=== PATIENT | female | born 1995 | race Caucasian/White ===

== ENCOUNTER 2018-03-24 10:56 | Emergency (ER) | payer OTHER, MEDICAID, SELFPAY ==
[2018-03-24 10:57] VITALS: BP 138/84; PULSE 131; RESP 16; TEMP 37.1; O2SAT 97; BMI 17.4
--- NOTE | 2018-03-24 11:30 | NURSING ---
CALLED CRISIS FOR DR VALENTE.
--- NOTE | 2018-03-24 12:31 | ED.VISSUMM ---
- ER Visit Summary Date of Service: 03/24/18 Chief Complaint: Depression, anxiety History of Present Illness: The patient is a 22 F presenting requesting a referral for help for her depression and anxiety. She states this has been ongoing for several months. She states it has been exacerbated recently by her methamphetamine use. She states she was in [facility] and was clean for 7 days. When she was released, she relapsed. She has had increased stress due to losing her house and she is in process of moving. She denies suicidal or homicidal ideation. No previous history of suicide attempt. She previously took Prozac and stopped this 2 years ago. Physical Examination: Vitals are stable. Patient is afebrile. Alert no acute distress. HEENT exam is unremarkable. Neck is supple. Lungs are clear and equal bilaterally. Heart is regular rate and rhythm. Abdomen is soft nontender nondistended. Extremities are unremarkable. Skin is warm and dry. No focal neurologic deficit. Depressed affect, no suicidal ideation. Remainder of exam is unremarkable. Emergency Department Course and Treatment: Patient repeatedly states that she is not suicidal and has no suicide plan. She is requesting outpatient referral for counseling. I paged the counseling center to attempt to get her an appointment. While awaiting callback, the patient eloped from the emergency department. The counseling center will attempt to reach the patient for follow up. Disposition: Elopement Impression: Depression/anxiety This note was generated with [employer] dictation software. It may contain incorrect words, spelling, and punctuation that were not noted in review of the chart prior to signing ED Disposition - Plan for ED Patient: Disposition: Home or Assisted Living Chief Complaint: Depression Referrals: Care Physician,No Primary [Primary Care Provider] -
[2018-03-24 13:19] VITALS: PULSE 64; RESP 14
--- NOTE | 2018-03-24 13:25 | ED.RN ---
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 WENT IN TO PT'S ROOM TO INFORM HER THAT THE BUCKLE WIRE INSERTER WAS HERE BUT PT WAS NOT LONGER IN THE ROOM.
== END 2018-03-24 13:26 | disposition home or self-care (01) ==
PROVIDERS: Emergency Provider Emergency Medicine
DX: F32.9 Major depressive disorder, single episode, unspecified (principal); F41.9 Anxiety disorder, unspecified; F15.90 Other stimulant use, unspecified, uncomplicated; Z72.0 Tobacco use; Z53.21 Procedure and treatment not carried out due to patient leaving prior to being seen by health care provider
CPT/HCPCS: 99282

== ENCOUNTER 2018-04-16 01:48 | Emergency (ER) | payer OTHER, MEDICAID, SELFPAY ==
[2018-04-16 01:48] VITALS: BP 126/83; PULSE 110; RESP 18; TEMP 36.5; O2SAT 99; BMI 18.2
--- NOTE | 2018-04-16 02:20 | RAD_ITS ---
STUDY: X-RAY CHEST REASON FOR EXAM: Female, 22 years old. Cough TECHNIQUE: Two-view COMPARISON: November 17, 2014 FINDINGS: The lungs are clear and expanded. There is no demonstrated pleural abnormality. Normal size heart. Normal mediastinum and ellie. Normal visualized pulmonary arteries. Normal visualized aortic arch and descending thoracic aorta. Normal visualized thoracic spine. Normal visualized ribs, clavicles, and shoulders. There is no demonstrated abnormality of the visualized soft tissue structures of the upper abdomen. RAD/Chest PA and Lateral IMPRESSION: Normal x-ray examination of the chest. No acute findings in the lungs Electronically Signed: Real Milton MD at 2:45 EDT Tel , Service support ,
--- NOTE | 2018-04-16 03:11 | ED.DCSUM_ITS ---
- ER Visit Summary Date of Service: 04/16/18 Chief Complaint: URI-like illness History of Present Illness: The patient is a 22 F who presents with a URI-like illness. She has been sick for 5 days. She complains of congestion rhinorrhea sore itchy throat bitemporal headache shortness of breath cough sputum and headache. She complains of nausea and vomiting which just began today. Over the last 15 hours she has had 3 episodes of nonbloody nonbilious emesis, no fevers. No chest pain. Physical Examination: Heart rate 110 vitals otherwise normal No distress resting comfortably Trosper moist mucous membranes Oropharynx clear Heart regular rhythm slightly tachycardic Lungs are clear without rales rhonchi or wheezes Abdomen soft Alert Test Results: Chest x-ray shows no acute process, normal Emergency Department Course and Treatment: Patient has rhinosinusitis and bronchitis. Given persistent severe symptoms for 5 days I do feel antibiotics are potentially of benefit. She was given a prescription for Augmentin. She was advised to follow-up with her primary care physician. She was discharged. Treatment Plan: [] Disposition: Discharge Impression: Rhinosinusitis Bronchitis This note was generated with [employer] dictation software. It may contain incorrect words, spelling, and punctuation that were not noted in review of the chart prior to signing ED Disposition - Plan for ED Patient: Chief Complaint: General Illness Referrals: Care Physician,No Primary [Primary Care Provider] -
--- NOTE | 2018-04-16 03:11 | ED.DEP ---
ED Disposition - Plan for ED Patient: Chief Complaint: General Illness Instructions: Acute Bronchitis Prescriptions: Amox/Clavulanate Tablet [Augmentin Tablet] 875 mg PO Q12H #20 tab Referrals: Care Physician,No Primary [Primary Care Provider] -
[2018-04-16 03:23] VITALS: BP 121/60; PULSE 80; RESP 16; O2SAT 96
== END 2018-04-16 03:24 | disposition home or self-care (01) ==
PROVIDERS: Emergency Provider Emergency Medicine
DX: J40 Bronchitis, not specified as acute or chronic (principal); J32.9 Chronic sinusitis, unspecified; R11.2 Nausea with vomiting, unspecified
CPT/HCPCS: 71046; 99282

== ENCOUNTER 2018-07-13 14:41 | Emergency (ER) | payer OTHER, MEDICAID, SELFPAY ==
[2018-07-13 14:42] VITALS: BP 122/81; PULSE 109; RESP 14; TEMP 36.6; O2SAT 99; BMI 18.0
--- NOTE | 2018-07-13 15:09 | ED.VISSUMM ---
- ER Visit Summary Date of Service: 07/13/18 Chief Complaint: Accidental heroin overdose History of Present Illness: The patient is a 23 F history of methamphetamine and more recently of the last month heroin abuse. Patient states this is the first time she is overdosed. She used IV heroin today. Awoke with the squad at the home where she was at and had received intranasal Narcan. She denies any complaints. Physical Examination: Well-appearing young female. No acute distress. Vital signs are stable. She is afebrile. She does not seem septic or toxic. H EENT exam pupils round reactive light. Extra motions are intact. No signs of trauma to her face or scalp. Moist mucous membranes. Neck nontender. No lymphadenopathy. Lungs clear to auscultation bilaterally. Heart regular rhythm no murmur. Abdomen soft nontender. Patient moving all 4 extremities. Neurovascular intact. Nontender. No edema. No rashes. No cellulitis. Back nontender. Neurologically she is awake and alert with no focal motor deficits. Test Results: None Emergency Department Course and Treatment: Patient is resting comfortably in bed. She will be observed for an hour. She is currently drinking water. Treatment Plan: [] Disposition: Discharge Impression: Acute heroin overdose History of methamphetamine and heroin abuse This note was generated with [employer] dictation software. It may contain incorrect words, spelling, and punctuation that were not noted in review of the chart prior to signing ED Disposition - Plan for ED Patient: Chief Complaint: Overdose Referrals: Care Physician,No Primary [Primary Care Provider] -
--- NOTE | 2018-07-13 15:11 | ED.DEP ---
ED Disposition - Plan for ED Patient: Disposition: Home or Assisted Living Chief Complaint: Overdose Instructions: ED Overdose Opiate Referrals: EIGHTY,ONE [STAFF PHYSICIAN] - As soon as possible Additional Instructions: Follow-up with a detox facility.
[2018-07-13 15:43] VITALS: BP 111/79; PULSE 111; RESP 16; O2SAT 98
[2018-07-13 16:04] VITALS: BP 107/61; RESP 16; O2SAT 98
== END 2018-07-13 16:17 | disposition home or self-care (01) ==
LOC: ED 15:42
PROVIDERS: Emergency Provider Emergency Medicine
DX: T40.1X1A Poisoning by heroin, accidental (unintentional), initial encounter (principal); Y92.9 Unspecified place or not applicable; F11.10 Opioid abuse, uncomplicated; F15.10 Other stimulant abuse, uncomplicated; Z72.0 Tobacco use
CPT/HCPCS: 99284

== ENCOUNTER 2019-12-12 16:51 | Emergency (ER) | payer OTHER, MEDICAID, SELFPAY ==
[2019-06-02 13:52] VITALS: BMI 18.0
[2019-12-12 16:52] VITALS: BP 134/93; PULSE 91; RESP 16; TEMP 36.5; O2SAT 98; BMI 23.5
--- NOTE | 2019-12-12 16:58 | ED.VIS.GEN ---
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 Status post 4 of intranasal Narcan along with Zofran ODT. Patient awake alert currently denies any symptoms. Reported had one emesis after Narcan. She feels better. Reports typical drug of choice with methamphetamines, she injected yesterday, she was clean for 7 months, however due to being awake wanted to take something to bring her down. She was at her friend's house after shower when she injected fentanyl. Reported friends called EMS, brought her outside, she was somnolent however she was not cyanotic, she was given medications by EMS and brought here for evaluation. Patient denies any homicidal or suicidal ideations. Reports she is currently homeless. She denies any past medical history. Denies fevers. Prior similar symptoms: Yes Past Medical History - Allergies and Home Meds Allergies/Adverse Reactions: Allergies No Known Allergies Allergy (Verified 06/13/17 20:17) Primary Care Physician: Care Physician,No Primary [Primary Care Provider] - Past Medical History: - - IV drug use started May 2018 Smoking Status: Current every day smoker Review of Systems General: Denies: Chills, Fever, Sweats Eyes: Denies: Visual changes - bilaterally, Diplopia ENT: Denies: Rhinorrhea, Sore throat Cardiovascular: Denies: Chest pain, Palpitations Respiratory: Denies: Dyspnea, Cough, Dyspnea on exertion Gastrointestinal: Denies: Abdominal pain, Nausea, Vomiting, Diarrhea, Melena, Hematochezia Genitourinary: Denies: Dysuria, Hematuria, Frequency Musculoskeletal: Denies: Back pain, Extremity Pain Skin: Denies: Rash, Wounds Neurological: Denies: Headache, Weakness, Numbness Physical Exam Vital Signs/Narrative: Vital Signs Temp Pulse Resp BP Pulse Ox 12/12/19 16:52 97.7 F L 91 16 134/93 H 98 Inital Vital Signs reviewed: Yes General: Well nourished, Well developed, No Acute Distress Head: Normocephalic, Atraumatic Eyes: Perrl, EOMI ENT: Moist mucous membranes, No rhinorrhea Neck: Supple, Nontender Cardiovascular: Regular rate, Regular rhythm, No murmurs Respiratory: No distress, CTA bilaterally, Chest nontender Abdomen: Soft, Nontender, Nondistended, Normal bowel sounds Back: Nontender, Normal Inspection Extremities: Nontender, No edema Skin: Normal color, No rash, - - Bilateral antecubital, 2 needle punctures each site, no surrounding erythema or drainage or any tenderness. Neurological: Alert, Oriented x3, Cranial nerves II-XII grossly intact, Normal Strength, Normal Sensation Psychological: Normal affect, Normal Mood Diagnostic/Tx/Re-eval - Medical Decision Making Patient currently awake alert, denies any suicidal homicidal ideations. Will monitor and plan to discharge. 1711: Nursing came to me, apparently patient did not want to be monitored, patient eloped before I can discussed with her or have any AMA papers signed. ED Disposition - Plan for ED Patient: Disposition: Home or Assisted Living Diagnosis: Opioid overdose Instructions: ED Overdose Opiate Referrals: Care Physician,No Primary [Primary Care Provider] -
--- NOTE | 2019-12-12 17:13 | ED.RN ---
RN WALKING IN [place] AFTER PUTTING PATIENT ON MONITOR AND PATIENT STATING SHE IS GOING TO SLEEP. RN FINDS PATIENT IN [place] PUSHING THE ER EXIT DOORS OPEN. NURSE STATES HEY, WE ARE GOING TO WATCH YOU AND JUST MAKE SURE YOU ARE OKAY IF YOU CAN COME BACK TO YOUR ROOM. SHE STATES NAH, I AM FINE AND PUSHED THE ER DOOR OPEN AND PROCEEDED OUT THE EXIT. DR. HERNANDEZ MADE AWARE OF ELOPEMENT.
== END 2019-12-12 17:17 | disposition left against medical advice (07) ==
LOC: ED 17:28
PROVIDERS: Emergency Provider Emergency Medicine
DX: T40.2X1A Poisoning by other opioids, accidental (unintentional), initial encounter (principal); Y92.9 Unspecified place or not applicable; Z59.0 Homelessness; F17.200 Nicotine dependence, unspecified, uncomplicated
CPT/HCPCS: 99284

== ENCOUNTER 2020-02-07 10:15 | Emergency (ER) | payer OTHER, MEDICAID, SELFPAY ==
[2020-02-07 10:15] VITALS: BP 108/60; PULSE 95; RESP 16; TEMP 36.6; O2SAT 98; BMI 22.5
--- NOTE | 2020-02-07 10:25 | CT_ITS ---
STUDY: CT ABDOMEN AND PELVIS WITHOUT CONTRAST REASON FOR EXAM: Female, 24 years old. PT STATED LEFT FLANK PAIN TODAY RADIATION DOSAGE (If Supplied By Facility): CTDIvol = ( 6.28 ) mGy, DLP = ( 308.99 ) mGycm TECHNIQUE: Transaxial images were obtained from the dome of the diaphragm to the symphysis pubis without oral contrast, and without intravenous contrast. Sagittal and coronal images were reconstructed. Individualized dose optimization techniques were used for this CT. COMPARISON: 2015 FINDINGS: The visualized lung bases are unremarkable. The visualized portions of the heart are within normal limits. Normal liver. Normal gallbladder and extrahepatic biliary system. Normal spleen. Normal pancreas. Normal bilateral adrenal glands. Normal right kidney. Left kidney shows mild hydronephrosis and proximal hydroureter but there is no obstructing stone stricture or mass noted. Normal visualized stomach. Normal small intestine. Retained stool noted in the colon The appendix is visualized and appears normal. Appendix best seen on coronal recon images 36 through 39 Normal abdominal aorta. Normal inferior vena cava. Normal retroperitoneum. Normal urinary bladder. Normal visualized uterus. Normal abdominal wall. Normal osseous structures. CT/Abdomen/Pelvis without Cont IMPRESSION: Mild left hydronephrosis and hydroureter without obstructing stone or stricture. Findings could be due to a crossing vessel or nonradiopaque stone. Retained stool throughout the colon No free peritoneal fluid, air, or suspicious adenopathy Electronically Signed: Shaun Roman MD at 12:10 EDT , Service support ,
--- NOTE | 2020-02-07 10:27 | ED.DCSUM_ITS ---
History of Present Illness Chief Complaint: Back Narrative: 24-year-old female presenting with left flank pain. She states she woke up with it. Sharp and radiated cuts across the lower aspect of the left side of her back. She states she does not have a history of kidney stones but her brother does. She is concerned that she might have a kidney stone. She is not had any dysuria or hematuria that she knows of. She is unsure if she could be or not. She has not had a fever. She took ibuprofen and Tylenol prior to coming in this did not help. Past Medical History - Allergies and Home Meds Allergies/Adverse Reactions: Allergies No Known Allergies Allergy (Verified 02/07/20 10:17) Primary Care Physician: Care Physician,No Primary [Primary Care Provider] - Prior records reviewed: Yes Smoking Status: Current every day smoker Review of Systems General: Denies: Chills, Fever Eyes: Denies: Visual changes - bilaterally, Diplopia ENT: Denies: Rhinorrhea, Sore throat Cardiovascular: Denies: Chest pain, Palpitations Respiratory: Reports: Dyspnea Gastrointestinal: Denies: Nausea, Vomiting, Diarrhea Genitourinary: Denies: Dysuria, Hematuria Musculoskeletal: Reports: Back pain Skin: Denies: Rash Neurological: Denies: Headache Psych: Denies: Depression, Anxiety Physical Exam Vital Signs/Narrative: Vital Signs Temp Pulse Resp BP Pulse Ox 02/07/20 10:15 97.8 F 95 16 108/60 98 General: Well nourished, Well developed Head: Normocephalic, Atraumatic Eyes: Perrl, EOMI ENT: Moist mucous membranes Cardiovascular: Regular rate, Regular rhythm Respiratory: No distress, CTA bilaterally Abdomen: Soft Back: CVA tenderness - Left-sided Extremities: Nontender Skin: Normal color, No rash Neurological: Alert, Oriented x3 Psychological: Normal affect Diagnostic/Tx/Re-eval Clinical Impression(s) from Imaging Studies Abdomen/Pelvis CT 02/07/20 10:25 IMPRESSION: Mild left hydronephrosis and hydroureter without obstructing stone or stricture. Findings could be due to a crossing vessel or nonradiopaque stone. Retained stool throughout the colon No free peritoneal fluid, air, or suspicious adenopathy Electronically Signed: Shaun Roman MD at 12:10 EDT , Service support , Laboratory Data 02/07/20 02/07/20 02/07/20 10:40 10:40 11:30 WBC 6.7 RBC 4.54 Hgb 14.4 Hct 42.2 MCV 93.0 MCH 31.7 MCHC 34.1 RDW Std Deviation 44.6 H RDW Coeff of Gus 13.0 Plt Count 205 MPV 11.1 Immature Gran % (Auto) 0.300 Neut % (Auto) 53.7 Lymph % (Auto) 35.3 Dolores % (Auto) 7.4 Eos % (Auto) 2.4 Baso % (Auto) 0.9 Absolute Neuts (auto) 3.6 Absolute Lymphs (auto) 2.37 Nucleated RBC % 0 Sodium 141 Potassium 3.7 Chloride 109 H Carbon Dioxide 29.0 Anion Gap 3 L BUN 9 Creatinine 0.83 Estim Creat Clear Calc 102.51 Est GFR (MDRD) Af Amer 110 Est GFR (MDRD) Non-Af 91 BUN/Creatinine Ratio 10.9 Glucose 89 Calcium 8.6 Urine Color Yellow Urine Clarity Cloudy Urine pH 6.0 Ur Specific [place] 1.025 Urine Protein 15 H Urine Glucose (UA) Normal Urine Ketones 5 H Urine Occult Blood Negative Urine Nitrite Negative Urine Bilirubin 1 H Urine Urobilinogen 4 H Ur Leukocyte Esterase 25 H Urine RBC 0 SEEN Urine WBC 0-5 SEEN Ur Squamous Epith Cells 5-10 SEEN Urine Bacteria 1+ Urine Mucus 1+ Urine Test Negative She presents with left-sided flank pain. She does not have a history of kidney stones. CBC and BMP are unremarkable. UA appears to be contaminated but does not appear to be a UTI. CT abdomen pelvis shows left-sided hydronephrosis and hydroureter consistent with likely passed kidney stone. It is possible that this could be missed on CT. Patient is currently pain-free. Consult on the findings. She will be discharged home in stable condition. Impression: 1. Left flank pain?likely passed kidney stone 2. Hydronephrosis and ureter ED Disposition - Plan for ED Patient: Disposition: Home or Assisted Living Diagnosis: Flank pain, Hydronephrosis, Kidney stone Instructions: ED RENAL STONE Passed Referrals: Care Physician,No Primary [Primary Care Provider] -
[2020-02-07 10:58] LABS: Absolute Lymphocyte Count 2.37 X10^3/uL (0.83-4.51); Absolute Neutrophil Count 3.6 X10^3/uL (2.0-7.7); Basophil# 0.06 X10^3/uL; Basophil% 0.9 % (0-1); Eosinophil# 0.16 X10^3/uL; Eosinophils% 2.4 % (0-5); Hematocrit 42.2 % (37-47); Hemoglobin 14.4 g/dL (12.0-15.0); Lymphocyte # 2.37 X10^3/ul (4.0); Lymphocyte % 35.3 % (19-41); Mean Corp Hgb Conc 34.1 g/dL (32-36); Mean Corpuscular Hgb 31.7 pg (27.0-32.0); Mean Platelet Vol. 11.1 fl (6.2-12.0); Monocyte% 7.4 % (0-10); NRBC Flagged by Analyzer 0 % (0-5); Neutrophil # 3.61 X10^3/uL (2.7-7.7); Neutrophil % 53.7 % (47-70); Platelet Count 205 K/mm3 (150-450); RBC Distribution Width SD 44.6 fl (35.1-43.9); Red Blood Count 4.54 M/mm3 (4.2-5.4); White Blood Count 6.7 K/mm3 (4.4-11.0)
[2020-02-07 11:14] LABS: Anion Gap 3 (5-15); BUN 9 mg/dL (7-18); BUN/Creat Ratio 10.9 RATIO (10-20); Calcium,Total 8.6 mg/dL (8.5-10.1); Chloride 109 mmol/L (98-107); Creatinine, Serum 0.83 mg/dL (0.55-1.02); EST Glomerular Filtration Rate 91 mL/min (>60); Est Glom Filt Rate - Afr Amer 110 mL/min (>60); Estimated Creatinine Clearance 102.51 ml/min; Glucose 89 mg/dL (74-106); Potassium 3.7 mmol/L (3.5-5.1); Sodium Level 141 mmol/L (136-145)
[2020-02-07] MEDS: Morphine 4 MG/ML Syringe IV (11:20)
[2020-02-07] MEDS: Ondansetron 4 MG/2 ML Vial IV (11:20)
[2020-02-07 11:34] LABS: Internal QC Validated? YES +Cl - CLEAR BKGD; Red Blood Cells-Urine 0 SEEN /hpf (0-5)
[2020-02-07 11:35] LABS: Color, Urine Yellow (Yellow); Glucose, Dipstick Normal (Normal); Ketone-Dipstick 5 mg/dl (Negative); Leukocyte Esterase-Dipstick 25 /ul (Negative); Nitrite-Dipstick Negative (Negative); Occult Blood-Urine Negative /ul (Negative); Protein-Dipstick 15 mg/dl (Negative); Specific Gravity, Urine 1.025 (1.002-1.030); Urine Clarity Cloudy (Clear); Urine Urobilinogen 4 mg/dl (Normal)
[2020-02-07 11:37] LABS: Urine Bilirubin Dipstick 1 mg/dL (Negative)
[2020-02-07 11:38] LABS: Pregnancy, Urine Negative Negative
[2020-02-07 11:40] LABS: Bacteria 1+ /hpf (None Seen); Mucous, Urine 1+ /hpf (<or=2+); White Blood Cells 0-5 SEEN /hpf (0-5)
[2020-02-07 11:41] LABS: Squamous Epithelial Cells - UA 5-10 SEEN /hpf (5-10)
[2020-02-07 12:59] VITALS: BP 96/55; PULSE 69; RESP 17; O2SAT 97
== END 2020-02-07 13:12 | disposition home or self-care (01) ==
PROVIDERS: Emergency Provider Student in an Organized Health Care Education/Training Program
DX: N13.30 Unspecified hydronephrosis (principal); R10.9 Unspecified abdominal pain
CPT/HCPCS: 74176; 80048; 81001; 81025; 85025; 96361; 96374; 96375; 99283; J7040; A4216; J2405

== ENCOUNTER 2020-02-17 08:09 | Emergency (ER) | payer OTHER, MEDICAID, SELFPAY ==
[2020-02-17 08:09] VITALS: BP 110/81; PULSE 100; RESP 18; TEMP 36.6; O2SAT 98; BMI 22.7
[2020-02-17 08:31] VITALS: BP 100/65; PULSE 83; RESP 20; TEMP 36.7; O2SAT 99
--- NOTE | 2020-02-17 08:31 | RAD_ITS ---
STUDY: X-RAY CHEST REASON FOR EXAM: Female, 24 years old. SOB, COUGH, SULLIVAN, SORE THROAT -- STARTED 02-13 TECHNIQUE: Single AP portable view of the chest. COMPARISON: Comparison is made with prior study dated 04/16/2018. FINDINGS: EKG electrodes are seen. The lungs are clear and expanded. There is no demonstrated pleural abnormality. Normal size heart. Normal mediastinum and ellie. Normal visualized pulmonary arteries. Normal visualized aortic arch and descending thoracic aorta. Normal visualized thoracic spine. Normal visualized ribs, clavicles, and shoulders. There is no demonstrated abnormality of the visualized soft tissue structures of the upper abdomen. RAD/Chest 1 View (Portable) IMPRESSION: Normal x-ray examination of the chest. Electronically Signed: Kyler Granados, at 9:10 EDT , Service support ,
--- NOTE | 2020-02-17 09:36 | ED.VIS.GEN ---
History of Present Illness Chief Complaint: Shortness of Breath Informant: Patient Narrative: Patient is a 24-year-old previous healthy female who presents to the emerge department for cough, chest wall pain, sore throat and sinus pressure. Her initial symptoms started on Thursday. She has been taking [id number] sinus medications for this which has not really been helping. She does have a sick contact as she is in a rehab house currently. She is a previous IV drug abuser and has been clean for the past 6 weeks. She does smoke cigarettes daily. Her cough has been nonproductive. No ear pain. No fevers or chills. No known coronavirus exposures. She denies any leg swelling or calf pain. No history of heart or lung issues. She feels like she has been wheezing. No abdominal pain nausea/vomiting or diarrhea. She has had a mild headache and denies any stiff neck or rashes. Pushing on her chest does make her symptoms worse. During coughing this also makes her symptoms worse. Exertion does not bother her symptoms. Past Medical History - Allergies and Home Meds Allergies/Adverse Reactions: Allergies No Known Allergies Allergy (Verified 02/17/20 08:12) Primary Care Physician: Urban Mane MD [STAFF PHYSICIAN] - 2 Days Care Physician,No Primary [Primary Care Provider] - Prior records reviewed: Yes Past Medical History: None Surgical History: no surgical history Smoking Status: Current every day smoker Drugs: - - Sober Review of Systems All systems negative except as indicated General: Denies: Chills, Fever, Sweats Eyes: Denies: Visual changes - bilaterally, Diplopia ENT: Reports: Rhinorrhea, Sore throat Cardiovascular: Reports: Chest pain - Chest wall. Denies: Palpitations Respiratory: Reports: Dyspnea, Cough. Denies: Dyspnea on exertion Gastrointestinal: Denies: Abdominal pain, Nausea, Vomiting, Diarrhea Genitourinary: Denies: Dysuria, Hematuria, Frequency Musculoskeletal: Denies: Back pain, Extremity Pain Skin: Denies: Rash, Wounds Neurological: Denies: Headache, Weakness, Numbness Physical Exam Vital Signs/Narrative: Vital Signs Temp Pulse Resp BP Pulse Ox 02/17/20 08:31 98.1 F 83 20 H 100/65 99 02/17/20 08:09 98 F 100 18 110/81 H 98 Inital Vital Signs reviewed: Yes General: Well nourished, Well developed, No Acute Distress Head: Normocephalic, Atraumatic Eyes: Perrl, EOMI ENT: Moist mucous membranes, TM's clear, Nasal congestion. Negative for: No rhinorrhea Neck: Supple, Nontender, No lymphadenopathy Cardiovascular: Regular rate, Regular rhythm, No murmurs Respiratory: No distress, Wheezing, Chest tenderness Abdomen: Soft, Nontender, Nondistended, Normal bowel sounds Back: Nontender, Normal Inspection Extremities: Nontender, No edema. Negative for: Edema, Calf Tenderness Skin: Normal color, No rash Neurological: Alert, Oriented x3, Cranial nerves II-XII grossly intact, Normal Strength, Normal Sensation Psychological: Normal affect, Normal Mood Diagnostic/Tx/Re-eval - Medical Decision Making Patient presents to the emergency department for URI type symptoms as well as cough. Upon arrival to the emerge department satting well on room air. She is afebrile. Not tachycardic. She does not appear in any acute distress. She has known exposures to sick patients with bronchitis. Will obtain coronavirus swab and x-ray of her chest to evaluate for pneumonia. Patient is wheezing and will give her a nebulizer treatment. Recommend anti-inflammatories for the costochondritis. This does not seem cardiac in nature as it is very reproducible on palpation. Patient is to self isolate until coronavirus test comes back. She needs follow-up with her PCP. Warning signs and symptoms for which to return to the emerge department reviewed. She understands and is agreeable this plan. ED Disposition - Plan for ED Patient: Disposition: Home or Assisted Living Diagnosis: URI (upper respiratory infection), Cough, Chest wall pain Instructions: ED Upper Resp Infec No Abx Tx Prescriptions: Albuterol Aerosols [Ventolin Aerosols] 2.5 mg INHALATION Q4H PRN #25 vial Transmission Status: Received by [facility] Referrals: Care Physician,No Primary [Primary Care Provider] - Urban Mane MD [STAFF PHYSICIAN] - 2 Days
[2020-02-17 09:55] VITALS: PULSE 77; RESP 16
[2020-02-17] MEDS: Albuterol 2.5 MG/3 ML VIAL.NEB. INHALATION (09:55)
[2020-02-17 09:56] VITALS: BP 101/64; PULSE 79; RESP 11; TEMP 36.7; O2SAT 96
[2020-02-17] MEDS: Acetaminophen 325 MG Tablet 650 MG PO (09:59)
[2020-02-17 10:06] VITALS: BP 101/64; PULSE 79; RESP 11; TEMP 36.7; O2SAT 96
== END 2020-02-17 10:11 | disposition home or self-care (01) ==
PROVIDERS: Emergency Provider Emergency Medicine
DX: J06.9 Acute upper respiratory infection, unspecified (principal); R07.89 Other chest pain; F17.210 Nicotine dependence, cigarettes, uncomplicated
CPT/HCPCS: 71045; 87635; 94640; 94664; 94799; 99283; U0003

== ENCOUNTER 2020-03-08 15:43 | Emergency (ER) | payer OTHER, MEDICAID, SELFPAY ==
[2020-03-08 15:44] VITALS: BP 104/63; PULSE 92; RESP 16; TEMP 36.8; O2SAT 97; BMI 20.9
--- NOTE | 2020-03-08 16:21 | ED.VIS.GEN ---
History of Present Illness Chief Complaint: Suicidal Informant: Patient Onset: Days Narrative: Patient present secondary to suicidal ideation. She states she has been having increasing thoughts of harming herself over the past 5 days. Nothing specific happened 5 days ago to trigger this. She is a recovering addict and has been clean for the last 72 days. She states her plan to kill herself is to overdose. She does report she is overdosed 10 times in the past, 4 of which were intentional. She has never been treated for any psychiatric conditions. Past Medical History - Allergies and Home Meds Allergies/Adverse Reactions: Allergies No Known Allergies Allergy (Verified 03/08/20 15:44) Primary Care Physician: Care Physician,No Primary [Primary Care Provider] - Prior records reviewed: Yes Past Medical History: None Surgical History: - - Smoking Status: Current every day smoker Drugs: - - History of methamphetamine abuse, clean x72 days Review of Systems General: Denies: Chills, Fever Eyes: Denies: Visual changes - bilaterally ENT: Denies: Bilateral ear pain Cardiovascular: Denies: Chest pain Respiratory: Denies: Dyspnea, Cough Gastrointestinal: Denies: Abdominal pain, Nausea, Vomiting Musculoskeletal: Denies: Swelling, Extremity Pain Skin: Denies: Rash Neurological: Denies: Headache Psych: Reports: Suicidal thoughts Allergy: Denies: Uticaria Physical Exam Vital Signs/Narrative: Vital Signs Temp Pulse Resp BP Pulse Ox 03/08/20 15:44 98.3 F 92 16 104/63 97 Inital Vital Signs reviewed: Yes General: Well nourished, Well developed Head: Normocephalic ENT: Moist mucous membranes Neck: Supple Cardiovascular: Regular rate, Regular rhythm Respiratory: No distress, CTA bilaterally Abdomen: Soft, Nontender Extremities: Nontender Skin: Normal color Neurological: Alert, Oriented x3 Psychological: - - Patient does admit to suicidal ideation with specific plan to overdose. Diagnostic/Tx/Re-eval Laboratory Results 03/08/20 03/08/20 03/08/20 17:30 17:30 17:30 WBC 7.1 RBC 4.57 Hgb 14.4 Hct 42.5 MCV 93.0 MCH 31.5 MCHC 33.9 RDW Std Deviation 43.8 RDW Coeff of Gus 12.8 Plt Count 232 MPV 10.8 Immature Gran % (Auto) 0.300 Neut % (Auto) 56.8 Lymph % (Auto) 34.6 Dukes % (Auto) 6.3 Eos % (Auto) 1.4 Baso % (Auto) 0.6 Absolute Neuts (auto) 4.0 Absolute Lymphs (auto) 2.46 Nucleated RBC % 0 Sodium 140 Potassium 4.0 Chloride 108 H Carbon Dioxide 29.0 Anion Gap 3 L BUN 10 Creatinine 0.66 Estim Creat Clear Calc 131.22 Est GFR (MDRD) Af Amer 142 Est GFR (MDRD) Non-Af 117 BUN/Creatinine Ratio 15.1 Glucose 87 Calcium 8.8 Serum , Qual Urine Opiates Screen Urine Methadone Screen Ur Barbiturates Screen Ur Phencyclidine Scrn Ur Amphetamines Screen U Methamphetamin-MDMA U Benzodiazepines Scrn Urine Cocaine Screen U Cannabinoids Screen Ur Drug Screen Comment Ethyl Alcohol 4.0 03/08/20 03/08/20 17:30 17:35 WBC RBC Hgb Hct MCV MCH MCHC RDW Std Deviation RDW Coeff of Gus Plt Count MPV Immature Gran % (Auto) Neut % (Auto) Lymph % (Auto) [place]ukes % (Auto) Eos % (Auto) Baso % (Auto) Absolute Neuts (auto) Absolute Lymphs (auto) Nucleated RBC % Sodium Potassium Chloride Carbon Dioxide Anion Gap BUN Creatinine Estim Creat Clear Calc Est GFR (MDRD) Af Amer Est GFR (MDRD) Non-Af BUN/Creatinine Ratio Glucose Calcium Serum , Qual NEGATIVE Urine Opiates Screen NEGATIVE Urine Methadone Screen NEGATIVE Ur Barbiturates Screen NEGATIVE Ur Phencyclidine Scrn NEGATIVE Ur Amphetamines Screen NEGATIVE U Methamphetamin-MDMA NEGATIVE U Benzodiazepines Scrn NEGATIVE Urine Cocaine Screen NEGATIVE U Cannabinoids Screen NEGATIVE Ur Drug Screen Comment Ethyl Alcohol - Medical Decision Making Patient was seen and evaluated by case management. They agree patient does require placement. She has been accepted at [facility]. ED Disposition - Plan for ED Patient: Disposition: Psychiatric Hospital or Unit Diagnosis: Suicidal ideation Referrals: Care Physician,No Primary [Primary Care Provider] -
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
[2020-03-08 18:07] LABS: Absolute Lymphocyte Count 2.46 X10^3/uL (0.83-4.51); Basophil# 0.04 X10^3/uL; Basophil% 0.6 % (0-1); Eosinophils% 1.4 % (0-5); Hematocrit 42.5 % (37-47); Hemoglobin 14.4 g/dL (12.0-15.0); Lymphocyte # 2.46 X10^3/ul (4.0); Lymphocyte % 34.6 % (19-41); Mean Corp Hgb Conc 33.9 g/dL (32-36); Mean Corpuscular Hgb 31.5 pg (27.0-32.0); Mean Platelet Vol. 10.8 fl (6.2-12.0); Monocyte# 0.45 X10^3/uL; Monocyte% 6.3 % (0-10); NRBC Flagged by Analyzer 0 % (0-5); Neutrophil # 4.03 X10^3/uL (2.7-7.7); Neutrophil % 56.8 % (47-70); Platelet Count 232 K/mm3 (150-450); RBC Distribution Width CV 12.8 % (11.6-14.6); RBC Distribution Width SD 43.8 fl (35.1-43.9); Red Blood Count 4.57 M/mm3 (4.2-5.4); White Blood Count 7.1 K/mm3 (4.4-11.0)
[2020-03-08 18:20] LABS: Amphetamine Urine VISTA NEGATIVE (<1000 ng/mL); Barbiturate Urine VISTA NEGATIVE (< 200 ng/mL); Benzodiazepine Urine VISTA NEGATIVE (< 200 ng/mL); Cocaine Urine VISTA NEGATIVE (< 300 ng/mL); Ecstacy Urine VISTA NEGATIVE (< 500 ng/mL); Methadone Urine VISTA NEGATIVE (< 300 ng/mL); PCP Urine VISTA NEGATIVE (< 25 ng/mL); THC Urine VISTA NEGATIVE (< 50 ng/mL); Vista UDS pH Range 6
[2020-03-08 18:23] LABS: Anion Gap 3 (5-15); BUN 10 mg/dL (7-18); BUN/Creat Ratio 15.1 RATIO (10-20); Calcium,Total 8.8 mg/dL (8.5-10.1); Chloride 108 mmol/L (98-107); Creatinine, Serum 0.66 mg/dL (0.55-1.02); EST Glomerular Filtration Rate 117 mL/min (>60); Est Glom Filt Rate - Afr Amer 142 mL/min (>60); Estimated Creatinine Clearance 131.22 ml/min; Glucose 87 mg/dL (74-106); Sodium Level 140 mmol/L (136-145)
[2020-03-08 18:24] LABS: Internal QC Validated? YES +Cl - CLEAR BKGD; Pregnancy, Serum, hCG Quali. NEGATIVE Negative
[2020-03-08 18:32] VITALS: RESP 16
[2020-03-08 19:00] VITALS: RESP 20
--- NOTE | 2020-03-08 19:21 | CM.ED ---
SOCIAL WORK Referral called and faxed to [facility]. Awaiting acceptance at this time. David Delgado, ENRICHMENT ASSISTANT, MEDIA CONSULTANT OUTSIDE SALES
--- NOTE | 2020-03-08 19:54 | CM.ED ---
SOCIAL WORK Call from [facility]. Patient accepted by [facility] to the [facility]. Nurse to call report to option 1. Patient and staff updated. Transformer [employer] Winder to set up transport.
[2020-03-08 20:00] VITALS: RESP 22
[2020-03-08] MEDS: hydrOXYzine PAM 25 MG Capsule 50 MG PO (20:35)
[2020-03-08 21:00] VITALS: BP 98/63; PULSE 74; RESP 18; O2SAT 97
== END 2020-03-08 22:36 ==
PROVIDERS: Emergency Provider Emergency Medicine
DX: R45.851 Suicidal ideations (principal); F17.200 Nicotine dependence, unspecified, uncomplicated
CPT/HCPCS: 80048; 80307; 80320; 84703; 85025; 99285; G0480

== ENCOUNTER → 2020-03-16 09:13 | Outpatient (CLI) | payer OTHER, MEDICAID, SELFPAY ==
[2020-03-16 08:17] VITALS: BMI 21.4
[2020-03-16 13:14] LABS: T4 Free Direct 1.13 ng/dL (0.76-1.46); Thyroid Stim Hormone (TSH) 0.97 uIU/mL (0.358-3.74)
== END ==
PROVIDERS: PCP Internal Medicine; Referring Provider Internal Medicine; Visit Provider Internal Medicine
DX: F31.9 Bipolar disorder, unspecified (principal)
CPT/HCPCS: 36415; 84439; 84443

== ENCOUNTER 2021-04-01 23:14 | Emergency (ER) | payer OTHER, MEDICAID, SELFPAY ==
[2021-04-01 23:15] VITALS: BP 122/71; PULSE 80; RESP 16; TEMP 36.1; O2SAT 99; BMI 21.2
--- NOTE | 2021-04-01 23:33 | EX.ED.DYSGE1 ---
HPI History of Present Illness Chief Complaint: General Illness Informant: patient Onset/Context/Timing Onset: Days (Started 3 days ago) Quality: Lightheaded, nausea, dry heaves and bilateral lower abdominal pain Location: Bilateral lower abdominal pain as well as other symptoms Current Severity: Mild Maximum Severity: Moderate Worsened by: She states it is worse at night Relieved by: Nothing Associated Symptoms Associated Symptoms: She states she did not have her menses 2 days ago Narrative Narrative: Patient is a Ab0 white female who presents Prior similar symptoms: No Recent Illness/Hospitalization: No PFSH PFSH Medical History Alcohol abuse Anemia Headache Home Medications ondansetron 4 mg PO Q8H PRN PRN #10 tab 04/02/21 [Rx Last Taken Unknown] Allergy/AdvReac Type Severity Reaction Status Date / Time No Known Allergies Allergy Verified 04/01/21 23:46 Family History Mother Cancer Thyroid disorder Anxiety and depression blood clots mental disorders Surgical History c section Social History (Updated 04/01/21 @ 23:[address] Jayjay Turner MD) household members: children Smoking Status: Current every day smoker tobacco type: cigarettes alcohol intake: former substance use type: former substance user, heroin, opiates and methamphetamine what type of physical activity do you participate in: none ROS ROS ED Constitutional Constitutional ED: Denies chills, fever(s), subjective or sweats Eyes Eyes: Denies blurry vision, change in vision or diplopia ENT ENT ED: Denies ear pain, rhinorrhea or sore throat Cardiovascular Cardiovascular: Denies chest pain, palpitations or racing heartbeat Respiratory/Chest Respiratory/Chest: Denies cough, dyspnea or dyspnea on exertion Gastrointestinal Gastrointestinal: Reports abdominal pain, nausea and vomiting; Denies constipation or diarrhea Genitourinary Genitourinary ED: Denies dysuria, hematuria or urinary frequency Musculoskeletal Musculoskeletal: Denies arthralgias, back pain, myalgias or neck pain Integumentary Denies rash Neurologic Neurologic: Reports weakness; Denies headache(s) or paresthesias Endocrine Endocrinology: Denies polydipsia, polyphagia or polyuria Allergic/Immunologic Allergic/Immunologic ED: Denies urticaria EXAM Physical Exam Const Vital Signs: 04/01/21 23:15 04/01/21 23:48 Temperature 97.0 F L Temperature Source Temporal Pulse Rate 80 Pulse Rate [Lying] 72 Pulse Rate [Sitting] 92 Pulse Rate [Standing] 82 Respiratory Rate 16 Respiratory Effort Normal Respiratory Pattern Normal Blood Pressure 122/71 H Blood Pressure [Lying] 114/67 Blood Pressure [Sitting] 117/75 Blood Pressure [Standing] 122/79 H Blood Pressure Mean 88 Blood Pressure Mean [Lying] 82 Blood Pressure Mean [Sitting] 89 Blood Pressure Mean [Standing] 93 Pulse Ox 99 Oxygen Delivery Method Room Air Positive well nourished and well developed General Appearance ED: well developed HEENT Reports TM's clear and dry mucous membranes HEENT Narrative: Head is atraumatic normocephalic. Ears normal. Nares patent. Tympanic Membrane ED: Yes TM's clear Mouth ED: Yes dry mucous membranes Mouth: dry mucous membranes Eyes PERRL and EOMs intact bilaterally General Eye ED: Negative for pale conjunctiva or scleral icterus Neck no lymphadenopathy, supple and no JVD Chest Wall inspection of chest normal and palpation of chest normal Resp normal respiratory effort and clear to auscultation bilaterally Cardio regular rate, regular rhythm, S1 normal heart sound, S2 normal heart sound and no murmurs GI normal to inspection, nondistended, normoactive bowel sounds, non-tender and non-distended Palpation: soft Back/Spine no CVA tenderness Thoracic Spine / Upper Back: Negative for paraspinal muscle tenderness Extremity normal to inspection General Extremety ED: Negative for edema or tenderness General Extremity: Negative for edema Neuro oriented x3, CN's II-XII intact bilaterally and no sensory deficits noted Sensorium / Orientation: alert Motor Exam: strength 5/5 throughout Psych mental status grossly normal Skin no rashes or lesions noted, no wounds and skin turgor normal MDM MDM MDM Narrative Medical decision making narrative: Patient symptoms may be due to . Will obtain serum test. Clinically she is dehydrated will administer 1 L of normal saline. She was treated with Zofran for her nausea dry heaves. CBC was obtained to assess for anemia. Serum test to rule out and need to consider ectopic if (positive. 1 L of normal saline was ordered since clinically she is dehydrated. Lab Data Attestation: I reviewed the patient's lab results. Lab results narrative: test is negative. White count and H&H is unremarkable. Renal function is normal. Electrolytes are normal. Labs: Laboratory Results - last 24 hr 04/01/21 04/01/21 04/01/21 23:50 23:50 23:50 WBC 7.9 RBC 4.22 Hgb 13.4 Hct 39.4 MCV 93.4 MCH 31.8 MCHC 34.0 RDW Std Deviation 44.1 H RDW Coeff of Gus 13.0 Plt Count 203 MPV 10.9 Immature Gran % (Auto) 0.300 Neut % (Auto) 47.8 Lymph % (Auto) 41.6 H [place] % (Auto) 7.7 Eos % (Auto) 2.0 Baso % (Auto) 0.6 Absolute Neuts (auto) 3.8 Absolute Lymphs (auto) 3.30 Nucleated RBC % 0 Sodium 138 Potassium 4.3 Chloride 104 Carbon Dioxide 27.0 Anion Gap 7 BUN 12 Creatinine 0.57 Estim Creat Clear Calc 152.57 Est GFR (MDRD) Af Amer 168 Est GFR (MDRD) Non-Af 139 BUN/Creatinine Ratio 21.2 H Glucose 90 Calcium 9.1 Serum , Qual NEGATIVE CBC/H&H is unremarkable. Discharge Plan Triage Chief Complaint: General Illness ED Provider: Jayjay Turner Dx/Rx/DC Orders Clinical Impression: Nausea & vomiting, Dehydration, mild, Amenorrhea Instructions: ED Vomiting (Adult), ED Amenorrhea Prescriptions: New ondansetron [ondansetron] 4 MG tablet 4 mg PO Q8H PRN PRN (Reason: Nausea) Qty: 10 RF: 0 Primary Care Provider: Care Physician,No Primary Referrals: Care Physician,No Primary [Primary Care Provider] - Doctor,Your [STAFF PHYSICIAN] - 3-5 Days if not improving Activity Restrictions/Additional Instructions: The name of your doctor is located on your insurance card. Disposition Disposition: Home, Self Care
[2021-04-01] MEDS: Ondansetron 4 MG/2 ML Vial IV (23:45)
[2021-04-01 23:48] VITALS: BP 114/67; BP 117/75; BP 122/79; PULSE 72; PULSE 82; PULSE 92
[2021-04-01 23:58] LABS: Absolute Neutrophil Count 3.8 X10^3/uL (2.0-7.7); Basophil# 0.05 X10^3/uL; Basophil% 0.6 % (0-1); Eosinophil# 0.16 X10^3/uL; Hematocrit 39.4 % (37-47); Hemoglobin 13.4 g/dL (12.0-15.0); Lymphocyte % 41.6 % (19-41); Mean Corpuscular Hgb 31.8 pg (27.0-32.0); Mean Corpuscular Volume 93.4 fL (81-99); Mean Platelet Vol. 10.9 fl (6.2-12.0); Monocyte# 0.61 X10^3/uL; Monocyte% 7.7 % (0-10); NRBC Flagged by Analyzer 0 % (0-5); Neutrophil % 47.8 % (47-70); Platelet Count 203 K/mm3 (150-450); RBC Distribution Width SD 44.1 fl (35.1-43.9); Red Blood Count 4.22 M/mm3 (4.2-5.4); White Blood Count 7.9 K/mm3 (4.4-11.0)
[2021-04-02 00:12] LABS: Internal QC Validated? YES +Cl - CLEAR BKGD; Pregnancy, Serum, hCG Quali. NEGATIVE Negative
[2021-04-02 00:16] LABS: Anion Gap 7 (5-15); BUN 12 mg/dL (7-18); BUN/Creat Ratio 21.2 RATIO (10-20); Calcium,Total 9.1 mg/dL (8.5-10.1); Chloride 104 mmol/L (98-107); Creatinine, Serum 0.57 mg/dL (0.55-1.02); EST Glomerular Filtration Rate 139 mL/min (>60); Est Glom Filt Rate - Afr Amer 168 mL/min (>60); Estimated Creatinine Clearance 152.57 ml/min; Glucose 90 mg/dL (74-106); Potassium 4.3 mmol/L (3.5-5.1); Sodium Level 138 mmol/L (136-145)
[2021-04-02 01:54] VITALS: BP 100/68; PULSE 63; RESP 16; O2SAT 98
== END 2021-04-02 01:56 | disposition home or self-care (01) ==
PROVIDERS: Emergency Provider Emergency Medicine
DX: E86.0 Dehydration (principal); R11.2 Nausea with vomiting, unspecified; N91.2 Amenorrhea, unspecified; F17.210 Nicotine dependence, cigarettes, uncomplicated
CPT/HCPCS: 80048; 84703; 85025; 96374; 99285; J2405

== ENCOUNTER 2021-07-21 22:28 | Emergency (ER) | payer OTHER, MEDICAID, SELFPAY ==
[2021-07-21 22:28] VITALS: BP 107/78; PULSE 73; RESP 16; TEMP 36.2; O2SAT 98; BMI 21.9
--- NOTE | 2021-07-22 00:36 | EX.ED.DYSGE1 ---
HPI History of Present Illness Chief Complaint: Wound Narrative Narrative: Patient is a 26-year-old female who states that she has been noticing some discoloration to her right great toe. She states that the skin is turning green in color and she has noticed some thickening of her nail. She states that she has been soaking her feet with no symptom improvement and she has concerned that the area may be infected and therefore comes in for evaluation [facility] Medical History (Updated 07/22/21 @ 00:[address] Mj Leon DO) Alcohol abuse Anemia Anxiety Bipolar disorder Headache Home Medications efinaconazole [Jublia] 1 applic TOPICAL DAILY 336 Days #8 ml 07/22/21 [Rx Last Taken Unknown] Allergy/AdvReac Type Severity Reaction Status Date / Time No Known Allergies Allergy Verified 07/21/21 22:31 Family History Mother Cancer Thyroid disorder Anxiety and depression blood clots mental disorders Surgical History c section Social History (Updated 04/01/21 @ 23:[address] Jayjay Turner MD) household members: children Smoking Status: Current every day smoker tobacco type: cigarettes alcohol intake: former substance use type: former substance user, heroin, opiates and methamphetamine what type of physical activity do you participate in: none ROS ROS ED Constitutional Constitutional ED: Denies chills or fever(s) ENT ENT ED: Denies sore throat Cardiovascular Cardiovascular: Denies chest pain Respiratory/Chest Respiratory/Chest: Denies cough or dyspnea Gastrointestinal Gastrointestinal: Denies abdominal pain, diarrhea, nausea or vomiting Genitourinary Genitourinary ED: Denies dysuria Musculoskeletal Musculoskeletal: Denies myalgias Integumentary Reports other Details: Positive right great toe discoloration ; Denies rash Neurologic Neurologic: Denies headache(s) Hematologic/Lymphatic Hematologic/Lymphatic: Denies easy bleeding or easy bruising EXAM Physical Exam Const Vital Signs: 07/21/21 22:28 07/22/21 00:50 Temperature 97.2 F L Temperature Source Temporal Pulse Rate 73 Respiratory Rate 16 16 Blood Pressure 107/78 Blood Pressure Mean 87 Pulse Ox 98 Oxygen Delivery Method Room Air Positive well nourished and well developed General Appearance ED: well developed Eyes PERRL and EOMs intact bilaterally Neck supple Resp normal respiratory effort and clear to auscultation bilaterally Cardio regular rate and regular rhythm Extremity normal to inspection Extremity Narrative: Patient has thickening and mild yellow discoloration of her right great toe consistent with onychomycosis. There is a green dye discoloration over top the right great toe which extends over top the second and third digit as well. There is no erythema or warmth no necrosis induration fluctuance or lymphangitic streaking noted Neuro oriented x3 and CN's II-XII intact bilaterally Sensorium / Orientation: alert Motor Exam: strength 5/5 throughout Psych mental status grossly normal Skin no rashes or lesions noted Skin Narrative: Soft tissue changes to the right foot as documented above MDM MDM MDM Narrative Medical decision making narrative: Patient presented to the ER afebrile. Her physical exam was consistent with fungal infection of the right great toenail. There was greenish discoloration of the skin but I feel this is secondary to a dye from her shoe or sock as she reports her feet get wet constantly at work. The patient does not have any secondary changes to suggest she has cellulitis or abscess formation and therefore do not feel there is need for any type of imaging or work-up and she is safe for discharge Discharge Plan Triage Chief Complaint: Wound ED Provider: Mj Leon Dx/Rx/DC Orders Clinical Impression: Onychomycosis Instructions: ED Nail Fungal Infection Prescriptions: New Jublia 10 % solution with applicator 1 applic topical DAILY 336 Days Qty: 8 RF: 0 Primary Care Provider: Care Physician,No Primary Referrals: Jennifer Weber DPM [STAFF PHYSICIAN] - 1 Week if not improving Care Physician,No Primary [Primary Care Provider] - Disposition Disposition: Home, Self Care Discharge Date/Time: 07/22/21 00:50
[2021-07-22 00:50] VITALS: RESP 16
== END 2021-07-22 00:50 | disposition home or self-care (01) ==
PROVIDERS: Emergency Provider Emergency Medicine; Visit Provider Emergency Medicine
DX: B35.1 Tinea unguium (principal); F31.9 Bipolar disorder, unspecified; F17.210 Nicotine dependence, cigarettes, uncomplicated
CPT/HCPCS: 99282

== ENCOUNTER 2021-11-06 13:03 | Emergency (ER) | payer OTHER, SELFPAY ==
[2021-11-06 13:05] VITALS: BP 105/60; PULSE 90; RESP 20; TEMP 37.2; O2SAT 98; BMI 22.1
--- NOTE | 2021-11-06 13:25 | EDS_ITS ---
HPI History of Present Illness Chief Complaint: Allergic Reaction Informant: patient Onset/Context/Timing Onset: Today and Hours Context: Gradual Onset Timing: Continuous Current Severity: Moderate Maximum Severity: Moderate Narrative Narrative: 26-year-old female complaining of rash over her whole body that itches. No prior history. Says she was at work and cleaned off some dust around 3 AM this morning she is alert developing a rash in arms and legs back chest and abdomen and hair. States it itches. Denies any swelling of her lips or tongue. No wheezing or trouble breathing or swallowing. No prior history. She is currently on no medications. After the symptoms started she did take a seasonal allergy medication. Prior similar symptoms: No Recent Illness/Hospitalization: No PFSH PFSH Medical History Alcohol abuse Anemia Anxiety Bipolar disorder Headache Home Medications efinaconazole [Jublia] 1 applic TOPICAL DAILY 336 Days #8 ml 07/22/21 [Rx Last Taken Unknown] prednisone 40 mg PO DAILY 5 Days #10 tab 11/06/21 [Rx Last Taken Unknown] Allergy/AdvReac Type Severity Reaction Status Date / Time No Known Allergies Allergy Verified 11/06/21 13:05 Family History Mother Cancer Thyroid disorder Anxiety and depression blood clots mental disorders Surgical History c section Social History household members: children Smoking Status: Current every day smoker tobacco type: e-cigarettes alcohol intake: former substance use type: former substance user, heroin, opiates and methamphetamine what type of physical activity do you participate in: none ROS ROS ED ROS Narrative Rash and itching. Review of Systems ROS Unobtainable: Denies due to encephalopathy Constitutional Constitutional ED: Denies chills or fever(s) Eyes Eyes: Denies change in vision ENT ENT ED: Denies ear pain Cardiovascular Cardiovascular: Denies chest pain or palpitations Respiratory/Chest Respiratory/Chest: Denies cough or dyspnea Gastrointestinal Gastrointestinal: Denies abdominal pain, diarrhea, nausea or vomiting Genitourinary Genitourinary ED: Denies dysuria Musculoskeletal Musculoskeletal: Denies myalgias Integumentary Reports rash; Denies abscess or Abrasions Neurologic Neurologic: Denies headache(s) Psychiatric Psychiatric: Denies depression Endocrine Endocrinology: Denies polyuria Allergic/Immunologic Allergic/Immunologic ED: Reports urticaria; Denies mouth swelling or tongue swelling EXAM Physical Exam Narrative Exam Narrative: 26-year-old female no acute distress. Vital signs stable afebrile. Pulse ox 90% on room air no hypoxia. H EENT exam unremarkable. No lip or tongue swelling. No trouble breathing or swallowing. No stridor or drooling. Lungs are clear. Heart regular rhythm no murmur. Abdomen soft nontender. Moving all 4 extremities. Skin rash and hives diffusely over the face, neck, chest, back, abdomen, upper and lower extremities. Consistent with allergic reaction. Otherwise exam unremarkable. Const Vital Signs: 11/06/21 13:05 Temperature 98.9 F Temperature Source Temporal Pulse Rate 90 Respiratory Rate 20 H Blood Pressure 105/60 Blood Pressure Mean 75 Pulse Ox 98 Oxygen Delivery Method Room Air Positive well nourished and well developed; Negative for cachectic, contractures or unkempt General Appearance ED: well developed and NAD; Negative for unkempt, cachectic, contractures, cyanotic, diaphoretic or pallor Nutritional Appearance: Negative for cachectic HEENT Reports moist mucous membranes Negative for trauma or tenderness Eyes PERRL and EOMs intact bilaterally General Eye ED: Negative for pale conjunctiva or scleral icterus Neck no lymphadenopathy, supple and no JVD General: Negative for tenderness Chest Wall inspection of chest normal and palpation of chest normal Resp normal respiratory effort and clear to auscultation bilaterally Effort and Inspection: Negative for pain with movement Auscultation: Negative for rales, rhonchi or wheezes Cardio regular rate, regular rhythm, S1 normal heart sound, S2 normal heart sound and no murmurs GI normal to inspection, nondistended, normoactive bowel sounds, non-tender, non- distended and no masses Auscultation: normoactive bowel sounds Palpation: soft; Negative for tender, guarding or rebound tenderness present Back/Spine no CVA tenderness General Back: Negative for CVA tenderness Extremity normal to inspection General Extremety ED: Negative for edema or tenderness General Extremity: Negative for edema Neuro oriented x3 Sensorium / Orientation: alert Motor Exam: strength 5/5 throughout Psych mental status grossly normal Appearance: Negative for unkempt Attitude: No agitated Mood & Affect: Negative for depressed or tearful Skin No no rashes or lesions noted, no wounds and skin turgor normal Skin Narrative: Rash consistent with hives consistent with a generalized allergic reaction. General Skin Exam: elasticity normal; Negative for jaundice or pallor Rashes: rashes noted MDM MDM MDM Narrative Medical decision making narrative: Patient has generalized allergic reaction. Treated with p.o. Benadryl and p.o. prednisone. Will be placed on prednisone for 5 days if rash resolves before that she can stop the medication. Return if worse. Discharge Plan Triage Chief Complaint: Allergic Reaction Other Complaint: Edema ED Provider: Blue Goncalves Dx/Rx/DC Orders Clinical Impression: Hives, Allergic reaction Instructions: ED General Allergic Reactions Prescriptions: New prednisone 20 mg tablet 40 mg PO DAILY 5 Days Qty: 10 RF: 0 No Action Jublia 10 % solution with applicator 1 applic topical DAILY 336 Days Qty: 8 RF: 0 Primary Care Provider: January Bonilla FIREWALL ENGINEER Referrals: January Bonilla FIREWALL ENGINEER, FIREWALL ENGINEER-C [Primary Care Provider] - 1 Week if not improving Activity Restrictions/Additional Instructions: Benadryl as needed for itching. Prednisone daily until rash goes away. You may stop it early if the rash goes away completely. Aloe vera you can put in bath water on your skin. Follow-up with your primary care provider if not improving return of a lot worse. This should progressively improve over the next 3 to 5 days. Disposition Disposition: Home, Self Care
[2021-11-06] MEDS: predniSONE 20 MG Tablet 80 MG PO (13:29)
[2021-11-06] MEDS: DiphenhydrAMINE 25 MG Capsule PO (13:29)
[2021-11-06 13:36] VITALS: PULSE 88; RESP 17; O2SAT 97
== END 2021-11-06 13:37 | disposition home or self-care (01) ==
PROVIDERS: Emergency Provider Emergency Medicine; PCP Nurse Practitioner; Visit Provider Emergency Medicine
DX: L50.0 Allergic urticaria (principal); F31.9 Bipolar disorder, unspecified; F17.290 Nicotine dependence, other tobacco product, uncomplicated
CPT/HCPCS: 99283

== ENCOUNTER 2021-12-24 03:13 | Emergency (ER) | payer OTHER, MEDICAID, SELFPAY ==
[2021-12-24 03:17] VITALS: BP 113/73; PULSE 93; RESP 16; TEMP 36.8; O2SAT 98; BMI 22.4
--- NOTE | 2021-12-24 03:23 | EDS_ITS ---
HPI HPI - Female History of Present Illness Chief Complaint: Complaint Informant: patient Narrative Narrative: Presents for evaluation and hematuria noting since this morning. States urinates normally at the and would feel sharp pain and then with noted blood. Mild pain in her back is 4 out of 10. Pain in the suprapubic region is 5 out of 10. No fevers. Nausea without vomiting. No history of similar. Last menstrual period 2 weeks ago. No allergies. Tobacco history of quarter pack per day. No other complaints. Prior similar symptoms: No PFSH PFSH Medical History Alcohol abuse Anemia Anxiety Bipolar disorder Headache Home Medications hyoscyamine sulfate [Levsin/SL] 0.125 mg PO TID PRN #10 tab 12/24/21 [Rx Last Taken Unknown] nitrofurantoin monohyd/m-cryst [Macrobid] 100 mg PO Q12H 5 Days #10 cap 12/24/21 [Rx Last Taken Unknown] quetiapine 150 mg PO DAILY 12/24/21 [History Last Taken Unknown] Allergy/AdvReac Type Severity Reaction Status Date / Time No Known Allergies Allergy Verified 12/24/21 03:16 Family History Mother Cancer Thyroid disorder Anxiety and depression blood clots mental disorders Surgical History c section Social History household members: children Smoking Status: Current every day smoker tobacco type: cigarettes and e- cigarettes alcohol intake: former substance use type: former substance user, heroin, opiates and methamphetamine what type of physical activity do you participate in: none ROS ROS ED Constitutional Constitutional ED: Denies chills, fever(s) or sweats Eyes Eyes: Denies change in vision ENT ENT ED: Denies dysphagia or sore throat Cardiovascular Cardiovascular: Denies chest pain, leg edema, palpitations or racing heartbeat Respiratory/Chest Respiratory/Chest: Denies cough, dyspnea or dyspnea on exertion Gastrointestinal Gastrointestinal: Reports abdominal pain and nausea; Denies diarrhea or vomiting Genitourinary Genitourinary ED: Reports dysuria and hematuria; Denies urinary frequency Musculoskeletal Musculoskeletal: Denies back pain, extremity pain or neck pain Integumentary Denies rash or wounds Neurologic Neurologic: Denies headache(s), paresthesias or weakness EXAM Physical Exam Const Vital Signs: 12/24/21 03:17 12/24/21 05:18 Temperature 98.3 F Temperature Source Temporal Pulse Rate 93 62 Respiratory Rate 16 15 Blood Pressure 113/73 138/74 H Blood Pressure Mean 86 Pulse Ox 98 98 Oxygen Delivery Method Room Air Positive well nourished and well developed General Appearance ED: well developed and NAD HEENT Reports moist mucous membranes normocephalic and atraumatic Eyes PERRL, EOMs intact bilaterally and conjunctivae normal General Eye ED: Yes normal appearance of both eyes Neck no lymphadenopathy and supple General: Negative for tenderness Chest Wall Chest: Negative for tenderness Resp normal respiratory effort and normal air movement Effort and Inspection: symmetric chest movement; Negative for respiratory distress Cardio regular rate, regular rhythm and no murmurs Peripheral Pulses: pulses 2+ throughout GI normal to inspection, nondistended, normoactive bowel sounds GI Narrative: Minimal suprapubic tenderness. No guarding or rebound. Negative Morales's McBurney's tenderness. Palpation: Negative for guarding or rebound tenderness present Back/Spine no CVA tenderness and no thoracic nor lumbar tenderness Extremity normal to inspection General Extremety ED: Negative for edema or tenderness General Extremity: Negative for edema Neuro oriented x3 and no sensory deficits noted Sensorium / Orientation: awake and alert Skin no rashes or lesions noted and no wounds MDM MDM MDM Narrative Medical decision making narrative: Patient with no significant discomfort during examination. She declined any medications. Work-up initiated labs her white count of 15 hemoglobin 13.4 creatinine 0.72 urine slightly cloudy had occult blood leukocytes white blood cells 1+ bacteria. hCG negative. Culture sent. 0410: Patient mild discomfort rule out more comfortable. She states there is significant pain at work where kept her from working. Been on and off for the past few days. Due to reported history limiting function will obtain CT scan to rule out kidney stones with colic. She given Rocephin IV. She is ordered for Levsin for spasms. 0500: CT scan negative for any obstructive uropathy. Taking bladder, decompression versus cystitis. Urine positive for infection. Appendix was normal. Symptoms improving. Meds to beds with Macrobid and Levsin. Follow-up with urology due to hematuria. All questions answered. Lab Data Attestation: I reviewed the patient's lab results. Labs: Laboratory Results - last 24 hr 12/24/21 12/24/21 12/24/21 03:22 03:22 03:45 WBC 15.0 H RBC 4.26 Hgb 13.4 Hct 39.2 MCV 92.0 MCH 31.5 MCHC 34.2 RDW Std Deviation 42.6 RDW Coeff of Gus 12.8 Plt Count 211 MPV 11.1 Immature Gran % (Auto) 0.400 Neut % (Auto) 71.1 H Lymph % (Auto) 21.4 Parker % (Auto) 5.4 Eos % (Auto) 1.2 Baso % (Auto) 0.5 Absolute Neuts (auto) 10.7 H Absolute Lymphs (auto) 3.21 Nucleated RBC % 0 Sodium 139 Potassium 3.8 Chloride 106 Carbon Dioxide 26.0 Anion Gap 7 BUN 16 Creatinine 0.72 Estim Creat Clear Calc 116.15 Est GFR (MDRD) Af Amer 128 Est GFR (MDRD) Non-Af 105 BUN/Creatinine Ratio 22.4 H Glucose 109 H Calcium 9.2 Urine Color Yellow Urine Clarity Sl. Cloudy Urine pH 6.0 Ur Specific Edroy 1.020 Urine Protein 30 H Urine Glucose (UA) Normal Urine Ketones Negative Urine Occult Blood 250 H Urine Nitrite Negative Urine Bilirubin Negative Urine Urobilinogen Normal Ur Leukocyte Esterase 100 H Urine RBC 25-50 SEEN Urine WBC 25-50 SEEN Ur Squamous Epith Cells 0-5 SEEN Urine Bacteria 1+ Urine Mucus 0 SEEN Urine Test Negative Radiography Diagnostic Testing: Clinical Impression(s) from Imaging Studies Abdomen/Pelvis CT 12/24/21 04:09 IMPRESSION: 1. Mild urinary bladder wall thickening, may be due to decompression or cystitis. 2. No hydroureteronephrosis or radiopaque nephrolithiasis. 3. Trace free fluid in the pelvis. Electronically Signed: Willie Hill MD at 4:55 EDT , Discharge Plan Triage Chief Complaint: Complaint ED Provider: Scott Lopez Dx/Rx/DC Orders Clinical Impression: Urinary tract infection with hematuria, Cystitis Instructions: ED Hematuria, ED CYSTITIS Female Adult Prescriptions: New hyoscyamine sulfate [Levsin/SL] 0.125 mg tablet, sublingual 0.125 mg PO TID PRN (Reason: abdominal discomfort) Qty: 10 RF: 0 nitrofurantoin monohyd/m-cryst [Macrobid] 100 mg capsule 100 mg PO Q12H 5 Days Qty: 10 RF: 0 No Action quetiapine 150 mg tablet extended release 24 hr 150 mg PO DAILY RF: 0 Primary Care Provider: January Bonilla NP Referrals: Brendon Joe MD [STAFF PHYSICIAN] - 1-2 Weeks January Bonilla NP, [employer] [Primary Care Provider] - Activity Restrictions/Additional Instructions: Urine with infection and blood. Culture sent. Take antibiotics as prescribed. CT scan negative for kidney stones. Thickened bladder infection versus decompression. Follow-up with urology for outpatient evaluation. Disposition Disposition: Home, Self Care Discharge Date/Time: 12/24/21 05:30
[2021-12-24 03:40] LABS: Absolute Lymphocyte Count 3.21 X10^3/uL (0.83-4.51); Absolute Neutrophil Count 10.7 X10^3/uL (2.0-7.7); Basophil# 0.07 X10^3/uL; Basophil% 0.5 % (0-1); Eosinophil# 0.18 X10^3/uL; Eosinophils% 1.2 % (0-5); Hematocrit 39.2 % (37-47); Hemoglobin 13.4 g/dL (12.0-15.0); Lymphocyte # 3.21 X10^3/ul (0.83-4.51); Lymphocyte % 21.4 % (19-41); Mean Corp Hgb Conc 34.2 g/dL (32-36); Mean Corpuscular Hgb 31.5 pg (27.0-32.0); Mean Platelet Vol. 11.1 fl (6.2-12.0); Monocyte# 0.81 X10^3/uL; Monocyte% 5.4 % (0-10); NRBC Flagged by Analyzer 0 % (0-5); Neutrophil # 10.69 X10^3/uL (2.7-7.7); Neutrophil % 71.1 % (47-70); Platelet Count 211 K/mm3 (150-450); RBC Distribution Width CV 12.8 % (11.6-14.6); RBC Distribution Width SD 42.6 fl (35.1-43.9); Red Blood Count 4.26 M/mm3 (4.2-5.4)
[2021-12-24 03:45] LABS: Anion Gap 7 (5-15); BUN 16 mg/dL (7-18); BUN/Creat Ratio 22.4 RATIO (10-20); Calcium,Total 9.2 mg/dL (8.5-10.1); Chloride 106 mmol/L (98-107); Creatinine, Serum 0.72 mg/dL (0.55-1.02); EST Glomerular Filtration Rate 105 mL/min (>60); Est Glom Filt Rate - Afr Amer 128 mL/min (>60); Estimated Creatinine Clearance 116.15 ml/min; Glucose 109 mg/dL (74-106); Potassium 3.8 mmol/L (3.5-5.1); Sodium Level 139 mmol/L (136-145)
[2021-12-24 03:52] LABS: Mucous, Urine 0 SEEN /hpf (<or=2+)
[2021-12-24 04:00] LABS: Color, Urine Yellow (Yellow); Glucose, Dipstick Normal (Normal); Internal QC Validated? YES +Cl - CLEAR BKGD; Ketone-Dipstick Negative (Negative); Leukocyte Esterase-Dipstick 100 /ul (Negative); Nitrite-Dipstick Negative (Negative); Occult Blood-Urine 250 /ul (Negative); Pregnancy, Urine Negative Negative; Protein-Dipstick 30 mg/dl (Negative); Urine Bilirubin Dipstick Negative (Negative); Urine Clarity Sl. Cloudy (Clear); Urine Urobilinogen Normal (Normal)
[2021-12-24 04:06] LABS: Bacteria 1+ /hpf (None Seen); Red Blood Cells-Urine 25-50 SEEN /hpf (0-5); Squamous Epithelial Cells - UA 0-5 SEEN /hpf (5-10); White Blood Cells 25-50 SEEN /hpf (0-5)
--- NOTE | 2021-12-24 04:09 | CT_ITS ---
STUDY: CT ABDOMEN AND PELVIS WITHOUT CONTRAST REASON FOR EXAM: Female, 26 years old. hematuria RADIATION DOSAGE (If Supplied By Facility): CTDIvol = ( 6.13 ) mGy, DLP = ( 293.99 ) mGycm TECHNIQUE: Transaxial images were obtained from the dome of the diaphragm to the symphysis pubis without oral contrast, and without intravenous contrast. Sagittal and coronal images were reconstructed. Individualized dose optimization techniques were used for this CT. COMPARISON: CT abdomen pelvis 02/07/2020 LIMITATIONS: None. FINDINGS: LOWER CHEST: Normal. LIVER: Normal. GALLBLADDER/BILE DUCTS: Normal. PANCREAS: Normal. SPLEEN: Normal. ADRENAL GLANDS: Normal. KIDNEYS/URETERS/BLADDER: No hydroureteronephrosis or radiopaque nephrolithiasis. Mild urinary bladder wall thickening. Urinary bladder is decompressed, limiting evaluation. RETROPERITONEUM/AORTA: Normal. BOWEL/MESENTERY: Mild increased stool in the proximal colon. No bowel dilatation or bowel wall thickening.. APPENDIX: Identified and normal. PERITONEUM: Trace free fluid in the pelvis. REPRODUCTIVE ORGANS: Normal. BONES/SOFT TISSUES: No acute abnormality. OTHER: None. CT/Abdomen/Pelvis without Cont IMPRESSION: 1. Mild urinary bladder wall thickening, may be due to decompression or cystitis. 2. No hydroureteronephrosis or radiopaque nephrolithiasis. 3. Trace free fluid in the pelvis. Electronically Signed: Willie Hill MD at 4:55 EDT ,
[2021-12-24] MEDS: Ceftriaxone 1 GM/50 ML BAG IV (04:48)
[2021-12-24] MEDS: Hyoscyamine Sulfate 0.125 MG Tablet SL (04:48)
[2021-12-24 05:18] VITALS: BP 138/74; PULSE 62; RESP 15; O2SAT 98
== END 2021-12-24 05:30 | disposition home or self-care (01) ==
PROVIDERS: Emergency Provider Emergency Medicine; PCP Nurse Practitioner; Visit Provider Emergency Medicine
DX: N30.91 Cystitis, unspecified with hematuria (principal); F31.9 Bipolar disorder, unspecified; F17.210 Nicotine dependence, cigarettes, uncomplicated; F41.9 Anxiety disorder, unspecified; Z79.899 Other long term (current) drug therapy; F17.290 Nicotine dependence, other tobacco product, uncomplicated
CPT/HCPCS: 74176; 80048; 81001; 81025; 85025; 87086; 87088; 96365; 99284; J7050; A4216

== ENCOUNTER → 2022-08-01 | Outpatient (CLI) | payer MEDICAID, SELFPAY ==
[2022-08-05 13:08] LABS: Hepatitis C Genotype 1a (.)
== END | disposition home or self-care (01) ==
LOC: MTLAB 11:22
PROVIDERS: PCP Internal Medicine; Referring Provider Internal Medicine Gastroenterology; Visit Provider Internal Medicine Gastroenterology
DX: B19.20 Unspecified viral hepatitis C without hepatic coma (principal)
CPT/HCPCS: 36415; 87902

== ENCOUNTER 2023-03-16 08:28 | Emergency (ER) | payer SELFPAY ==
[2023-03-16 08:28] VITALS: BP 114/79; PULSE 107; RESP 16; TEMP 36.2; O2SAT 94; BMI 19.5
[2023-03-16 08:53] VITALS: O2SAT 98
--- NOTE | 2023-03-16 08:56 | EX.ED.VIS.UR ---
HPI HPI - URI History of Present Illness Chief Complaint: Cold Sx Informant: patient Onset/Context/Timing Onset: Days (5) Context: Gradual Onset Timing: Continuous Quality: Aching Location: Generalized Worsened by: Swallowing Relieved by: - (Nothing) Associated Symptoms Associated Symptoms: Positive for Nasal Congestion, Headache, Sinus Pressure, Myalgias, Nausea, Vomiting, Shortness of Breath, Chest Pain and Productive Cough; Negative for Diarrhea, Nonproductive cough or Hemoptysis Narrative Narrative: Patient presents with sore throat, cough, headache, and fever that has been getting worse over the past 5 days. Patient states she feels achy all over. Patient states her throat is worse with swallowing. Patient admits to some sinus pressure and headache. Patient states she is coughing up some yellow sputum. Patient states she feels short of breath at times. Patient states she has pain in her chest with coughing. Patient states that sometimes she will have a coughing episode that will cause nausea and vomiting. Patient states her temperature at home was up to 102. ROS ROS ED Constitutional Constitutional ED: Reports fever(s); Denies chills Eyes Eyes: Denies blurry vision or change in vision ENT ENT ED: Reports sore throat; Denies rhinorrhea Cardiovascular Cardiovascular: Reports chest pain; Denies palpitations Respiratory/Chest Respiratory/Chest: Reports cough and dyspnea Gastrointestinal Gastrointestinal: Reports nausea and vomiting Genitourinary Genitourinary ED: Denies dysuria or hematuria Musculoskeletal Musculoskeletal: Reports myalgias; Denies back pain or neck pain Integumentary Denies abscess or rash Neurologic Neurologic: Reports headache(s); Denies weakness Allergic/Immunologic Allergic/Immunologic ED: Denies mouth swelling or urticaria [facility] Medical History Alcohol abuse Anemia Anxiety Bipolar disorder delivery due to maternal disorder, delivered, [facility] Depression Headache Hepatitis C PTSD (post-traumatic stress disorder) Home Medications aripiprazole 5 mg tablet 5 mg PO QHS #30 tabs 06/18/22 [Rx Last Taken Unknown] Allergy/AdvReac Type Severity Reaction Status Date / Time No Known Allergies Allergy Verified 03/16/23 08:28 Family History (Updated 06/18/22 @ 14:[address] 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 [email or web address] Smoking Status: Current every day smoker tobacco type: cigarettes and e-cigarettes Electronic Cigarette Use: not used quit status: not considering quitting alcohol intake: current details: heavy drinker, quit in 2019, still has an occasional drink substance use type: former substance user, heroin, opiates and methamphetamine what type of physical activity do you participate in: none do you feel safe at home: Yes EXAM Physical Exam Const Vital Signs: 03/16/23 08:28 03/16/23 08:53 Temperature 97.2 F L Temperature Source Temporal Pulse Rate 107 H Respiratory Rate 16 Respiratory Effort Normal Non-Labored Respiratory Depth Normal Respiratory Pattern Normal Blood Pressure 114/79 Blood Pressure Mean 90 Pulse Ox 94 Oxygen Delivery Method Room Air Room Air Positive well nourished and well developed General Appearance ED: well developed and NAD HEENT Reports moist mucous membranes Throat: posterior oropharynx abnormal Positive for erythema Eyes PERRL and EOMs intact bilaterally Neck supple, no meningeal signs and no JVD General: lymphadenopathy anterior cervical Resp normal respiratory effort and clear to auscultation bilaterally Cardio Rate: regular rate Rhythm: regular rhythm GI non-tender Palpation: soft Extremity normal to inspection and full ROM General Extremety ED: Negative for tenderness Neuro oriented x3, CN's II-XII intact bilaterally and no sensory deficits noted Sensorium / Orientation: alert Motor Exam: strength 5/5 throughout Psych mental status grossly normal MDM MDM MDM Narrative Medical decision making narrative: Differential diagnosis includes viral illness, strep pharyngitis, and pneumonia. Chest x-ray will be obtained to assess for pneumonia. Rapid strep will be obtained to assess for strep pharyngitis. COVID-19 rapid antigen will be obtained to assess for COVID infection. Influenza A and influenza B antigens will be obtained to assess for influenza infection. Lab Data Lab results narrative: COVID-19 rapid antigen was reviewed and was negative. Influenza A and influenza B antigens were reviewed and were negative. Rapid strep was reviewed and was negative. Radiography Chest X-Ray - ED: 2 View, Read by ED Physician, Read by Radiologist and No Acute Disease Diagnostic Testing: Clinical Impression(s) from Imaging Studies Chest X-Ray 03/16/23 09:37 IMPRESSION: Normal x-ray examination of the chest. Electronically Signed: Kyler Granados MD at 10:04 EDT , PA and lateral chest x-ray was obtained. There are 2 views. On my independent interpretation, lung rodriguez are clear. There is normal cardiac silhouette. Bony thorax is normal. There is no acute process noted. Radiologist also interpreted the x-ray and agrees. Treatment and Re-Evaluation Narrative: Smoking cessation was discussed. Patient was advised of her findings. Patient was instructed to continue drinking plenty of fluids. Patient was instructed to take [id number] decongestants as needed. Patient was instructed to take Tylenol or ibuprofen as needed for any pain or fevers. Patient was instructed to follow-up with her primary care physician in 5 to 7 days. Patient understood and was agreeable with the plan. All questions were answered. Discharge Plan Triage Chief Complaint: Cold Sx ED Provider: Keon Matute Dx/Rx/DC Orders Clinical Impression: Viral upper respiratory tract infection with cough, Smoker Instructions: ED URI, Viral, No Abx (Adult) Prescriptions: No Action aripiprazole 5 mg tablet 5 mg PO QHS Qty: 30 1RF Stand Alone Forms: ED Work / School Excuse Primary Care Provider: Rolanda Olson Referrals: Rolanda Olson MD [Primary Care Provider] - 3-5 Days Disposition Disposition: Home, Self Care
--- NOTE | 2023-03-16 09:37 | RAD_ITS ---
STUDY: X-RAY CHEST REASON FOR EXAM: Female, 27 years old. One week history of cough and chest congestion. TECHNIQUE: PA and lateral views of the chest. COMPARISON: Comparison is made with prior study dated February 17, 2020. FINDINGS: The lungs are clear and expanded. There is no demonstrated pleural abnormality. Normal size heart. Normal mediastinum and ellie. Normal visualized pulmonary arteries. Normal visualized aortic arch and descending thoracic aorta. Normal visualized thoracic spine. Normal visualized ribs, clavicles, and shoulders. There is no demonstrated abnormality of the visualized soft tissue structures of the upper abdomen. RAD/Chest PA and Lateral IMPRESSION: Normal x-ray examination of the chest. Electronically Signed: Kyler Granados MD at 10:04 EDT ,
[2023-03-16 11:06] VITALS: BP 129/67; PULSE 64; RESP 15; O2SAT 99
== END 2023-03-16 11:13 | disposition home or self-care (01) ==
PROVIDERS: Emergency Provider Emergency Medicine; PCP Internal Medicine; Visit Provider Emergency Medicine
DX: J06.9 Acute upper respiratory infection, unspecified (principal); F17.210 Nicotine dependence, cigarettes, uncomplicated; F17.290 Nicotine dependence, other tobacco product, uncomplicated; R05.9 Cough, unspecified
CPT/HCPCS: 71046; 87428; 87880; 99283

== ENCOUNTER 2023-03-20 07:05 | Emergency (ER) | payer SELFPAY ==
[2023-03-20 07:10] VITALS: BP 142/88; PULSE 98; RESP 18; TEMP 36.6; O2SAT 100; BMI 20.4
--- NOTE | 2023-03-20 07:21 | EX.ED.DYSGE1 ---
HPI History of Present Illness Chief Complaint: Other, Pain/Inj Informant: patient Narrative Narrative: 27-year-old male presenting to the emergency room with fever cough URI symptoms. Patient was seen on Thursday for illness that began last Thursday (now day 11). She notes continued fevers up to 102.3. She notes nasal congestion sore throat and right ear discomfort. She notes a cough that is productive. She states today she had blood both in her phlegm and in her nasal drainage. She notes diarrhea. No urinary symptoms or rashes. She has been taking Tylenol without relief from the fever. She was seen on Thursday chest x-ray was negative. COVID and influenza swabs were negative. She notes that her right chest is sore worse with coughing. [facility] Medical History Alcohol abuse Anemia Anxiety Bipolar disorder delivery due to maternal disorder, delivered, [facility] Depression Headache Hepatitis C PTSD (post-traumatic stress disorder) Home Medications aripiprazole 5 mg tablet 5 mg PO QHS #30 tabs 06/18/22 [Rx Last Taken Unknown] amoxicillin 875 mg-potassium clavulanate 125 mg tablet 1 tab PO BID 7 days #14 tabs 03/20/23 [Rx Last Taken Unknown] Allergy/AdvReac Type Severity Reaction Status Date / Time No Known Allergies Allergy Verified 03/16/23 08:28 Family History Mother Cancer thyroid Thyroid disorder Anxiety and depression blood clots mental disorders Heart disease Surgical History History of section, low transverse History of tonsillectomy Social History household members: significant other number of children: 2 current occupational status: employed 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 [employer] Smoking Status: Current every day smoker tobacco type: cigarettes and e-cigarettes Electronic Cigarette Use: not used quit status: not considering quitting alcohol intake: current details: heavy drinker, quit in 2019, still has an occasional drink substance use type: former substance user, heroin, opiates and methamphetamine what type of physical activity do you participate in: none do you feel safe at home: Yes ROS ROS ED Constitutional Constitutional ED: Reports chills, fever(s) and sweats; Denies weight loss Eyes Eyes: Denies change in vision or diplopia ENT ENT ED: Reports ear pain, rhinorrhea and sore throat Cardiovascular Cardiovascular: Reports chest pain; Denies orthopnea, palpitations or racing heartbeat Respiratory/Chest Respiratory/Chest: Reports cough; Denies dyspnea or orthopnea Gastrointestinal Gastrointestinal: Reports diarrhea and nausea; Denies abdominal pain or vomiting Genitourinary Genitourinary ED: Denies dysuria, hematuria or urinary frequency Musculoskeletal Musculoskeletal: Denies arthralgias or myalgias Integumentary Denies abscess or rash Neurologic Neurologic: Denies headache(s) or weakness Psychiatric Psychiatric: Denies anxiety, depression, suicidal ideation or suicidal thoughts Endocrine Endocrinology: Denies polydipsia, polyphagia or polyuria Allergic/Immunologic Allergic/Immunologic ED: Denies mouth swelling, tongue swelling or urticaria EXAM Physical Exam Const Vital Signs: 03/20/23 07:10 03/20/23 07:13 Temperature 97.9 F Temperature Source Oral Pulse Rate 98 Respiratory Rate 18 Respiratory Effort Normal Blood Pressure 142/88 H Blood Pressure Mean 106 Pulse Ox 100 Oxygen Delivery Method Room Air Positive well nourished and well developed General Appearance ED: well developed HEENT Reports normocephalic, head/scalp atraumatic and moist mucous membranes HEENT Narrative: Nasal congestion. 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 Mild oropharyngeal erythema. Tympanic membranes appear normal. Eyes PERRL and EOMs intact bilaterally Neck no lymphadenopathy, supple and no JVD Neck Narrative: No meningeal signs Chest Wall Chest Narrative: Right anterior chest wall tender to palpation around the anterior fourth/fifth ribs Resp normal respiratory effort and clear to auscultation bilaterally Resp Narrative: Rhonchorous cough which clears lung auscultation Cardio regular rate, regular rhythm and no murmurs GI normal to inspection, nondistended, normoactive bowel sounds and non-tender Palpation: soft Back/Spine no CVA tenderness and normal ROM Extremity normal to inspection General Extremety ED: Negative for edema General Extremity: Negative for edema Neuro oriented x3 and CN's II-XII intact bilaterally Sensorium / Orientation: alert Motor Exam: strength 5/5 throughout Psych mental status grossly normal Mood & Affect: Negative for depressed or tearful Skin no rashes or lesions noted and no wounds MDM MDM MDM Narrative Medical decision making narrative: My interpretation of the chest x-ray is no acute process. Specifically no infiltrate noted. Patient is going on day 12 still with productive cough. While most likely this is viral but this has been going on quite a while. I believe her chest pain is most likely chest wall strain due to coughing. It is reproducible. I do not believe that there is pulmonary embolism or ACS. I will treat the patient with Augmentin. She is given a work note for today as she had to leave work. Radiography Diagnostic Testing: Clinical Impression(s) from Imaging Studies Chest X-Ray 03/20/23 07:25 IMPRESSION: No evidence of active intrathoracic disease. Electronically Signed: Faiza Cali MD at 7:53 EDT , Discharge Plan Triage Chief Complaint: Other, Pain/Inj ED Provider: Orlando Bond Dx/Rx/DC Orders Clinical Impression: Acute chest wall pain, Bronchitis Prescriptions: New amoxicillin-pot clavulanate 875-125 mg tablet 1 tab PO BID 7 Days Qty: 14 0RF No Action aripiprazole 5 mg tablet 5 mg PO QHS Qty: 30 1RF Primary Care Provider: Rolanda Olson Referrals: Rolanda Olson MD [Primary Care Provider] - As Needed Disposition Disposition: Home, Self Care
--- NOTE | 2023-03-20 07:25 | RAD_ITS ---
INDICATION: cough EXAMINATION/TECHNIQUE: X-RAY - XR Chest 2 Views COMPARISON: 03/16/2023 FINDINGS: LINES/DEVICES: None. LUNGS: No consolidation. No pneumothorax. MEDIASTINUM: Unremarkable. CARDIAC SILHOUETTE: Not enlarged. BONES AND SOFT TISSUES: No acute abnormalities. RAD/Chest PA and Lateral IMPRESSION: No evidence of active intrathoracic disease. Electronically Signed: Faiza Cali MD at 7:53 EDT ,
== END 2023-03-20 08:20 | disposition home or self-care (01) ==
PROVIDERS: Emergency Provider Emergency Medicine; PCP Internal Medicine; Visit Provider Emergency Medicine
DX: R07.89 Other chest pain (principal); F31.9 Bipolar disorder, unspecified; J40 Bronchitis, not specified as acute or chronic; Z79.899 Other long term (current) drug therapy; F17.210 Nicotine dependence, cigarettes, uncomplicated; F17.290 Nicotine dependence, other tobacco product, uncomplicated; X58.XXXA Exposure to other specified factors, initial encounter
CPT/HCPCS: 71046; 99282

== ENCOUNTER → 2025-05-26 | Outpatient (CLI) | payer OTHER, SELFPAY ==
[2025-05-26 12:25] LABS: Hematocrit 36.8 % (37-47); Hemoglobin 12.7 g/dL (12.0-15.0); Immature Granulocytes Count 0.030 X10^3/uL (0.0-0.0); Mean Corp Hgb Conc 34.5 g/dL (32-36); Mean Corpuscular Volume 92.7 fL (81-99); Mean Platelet Vol. 11.3 fl (6.2-12.0); NRBC Flagged by Analyzer 0 % (0-5); Platelet Count 235 K/mm3 (150-450); RBC Distribution Width CV 12.5 % (11.6-14.6); RBC Distribution Width SD 42.7 fl (35.1-43.9); Red Blood Count 3.97 M/mm3 (4.2-5.4); White Blood Count 10.6 K/mm3 (4.4-11.0)
[2025-05-26 13:24] LABS: HIV Nonreactive (Nonreactive); Hepatitis B Surface Antigen Nonreactive (Nonreactive); Hepatitis C Antibody REAC (Nonreactive); Syphilis Antibodies Nonreactive (Nonreactive)
[2025-05-29 22:07] LABS: Chlamydia By Nucleic Acid AMP Negative (Negative); Gonococcus By Nucleic Acid AMP Negative (Negative)
== END | disposition home or self-care (01) ==
PROVIDERS: PCP Internal Medicine; Visit Provider Advanced Practice Midwife
DX: O09.90 Supervision of high risk pregnancy, unspecified, unspecified trimester (principal); F19.11 Other psychoactive substance abuse, in remission; Z31.430 Encounter of female for testing for genetic disease carrier status for procreative management; F14.90 Cocaine use, unspecified, uncomplicated; E04.9 Nontoxic goiter, unspecified; Z12.4 Encounter for screening for malignant neoplasm of cervix; Z3A.00 Weeks of gestation of pregnancy not specified; O99.320 Drug use complicating pregnancy, unspecified trimester; O99.280 Endocrine, nutritional and metabolic diseases complicating pregnancy, unspecified trimester
CPT/HCPCS: 36415; 84439; 84443; 85025; 86703; 86762; 86780; 86803; 86850; 86900; 86901; 87340; 87491; 87591; 88175; G0145

== ENCOUNTER → 2025-06-22 | Outpatient (CLI) | payer OTHER, SELFPAY ==
[2025-06-22 17:30] LABS: Barbiturate Urine NEGATIVE (< 200 ng/mL); Benzodiazepine Urine NEGATIVE (< 200 ng/mL); PCP Urine NEGATIVE (< 25 ng/mL); THC Urine PRESUMPTIVE POSITIVE (< 50 ng/mL)
--- OUTSIDE RECORDS SUMMARY | 2025-06-22 18:39 | XMS RPT_ITS | CCD ---
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 [facility] Care Team Providers Care 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 Name Role Phone Kodi MATHEWS, Doron Zhao Primary Care Provider JANUARY CASTAÑEDA Referring Unavailable KODI, DORON Zhao Primary Care Unavailable JANUARY CASTAÑEDA Attending Unavailable SELF Referring Unavailable KODI, DORON Zhao Primary Care Unavailable ROBIN JACKSON Referring Unavailable KODI, DORON Zhao Primary Care Unavailable DORON MARIEE Primary Care Unavailable KODI, DORON Zhao Primary Care Unavailable ADINA DUGGAN Attending Unavailable SELF Referring Unavailable KODI, DORON Zhao Primary Care Unavailable Unavailable Primary Care Provider UnavailLALA Stanton Attending Unavailable LALA DAVIS Attending Unavailable Wesley, Rolanda Primary Care Unavailable Heilwood, Rolanda Referring Unavailable Jessica Page Attending Unavailable Wesley, Rolanda Primary Care Unavailable Wesley, Rolanda Referring Unavailable Silvia Ellis Attending Unavailable Wesley, Rolanda Primary Care Unavailable Silvia Ellis Attending Unavailable Medications Current Medications Medication Drug Class(es) Dates Sig (Normalized) Sig (Original) efinaconazole 100 mg/ml topical solution (1 source) Azole Antifungal Start: 2 Efinaconazole (Jublia) 10 % solution with applicator Active 1 APPLIC TOPICAL DAILY 8 July 22, 2021 1:38am hyoscyamine sulfate 0.125 mg sublingual tablet (1 source) Start: 2 take 1 tablet by mouth three times daily Hyoscyamine Sulfate (Levsin/Sl) 0.125 mg tablet, sublingual Active 0.125 MG PO THREE TIMES A DAY December 24, 2021 4:59am methylPREDNISolone 4 mg oral tablet (4 sources) Corticosteroid Start: 5 End: 5 methylPREDNISolone (Medrol Dospak) 4 MG tablets Follow schedule on package instructions 21 tablet 05/01/2025 05/08/2025 Active metroNIDAZOLE 500 mg oral tablet (3 sources) Nitroimidazole Antimicrobial Start: 4 End: 4 take 1 tablet by mouth twice daily metroNIDAZOLE (FLAGYL) 500 mg tablet Take 1 tablet by mouth two times a day for 7 days. 14 tablet 0 11/25/2023 12/02/2023 Active nitrofurantoin, macrocrystals 25 mg / nitrofurantoin, monohydrate 75 mg oral capsule (1 source) Nitrofuran Antibacterial Start: 2 take 1 capsule by mouth every twelve hours at mealtime Nitrofurantoin Monohyd/M-Cryst (Macrobid) 100 mg capsule Active 100 MG PO Q12H 10 5 December 24, 2021 4:59am must administer with a meal/food PNV no.95/ferrous fum/folic ac ( ORAL) (10 sources) PNV no.95/ferrou s fum/folic ac ( ORAL) Take by mouth once daily. 0 Active Comment on above: Take by mouth once d aily. predniSONE 20 mg oral tablet (1 source) Start: 2 take 40 mg by mouth once daily Prednisone Active 40 MG PO DAILY 10 5 November 06, 2021 1:31pm 24 hr QUEtiapine 150 mg extended release oral tablet (3 sources) Atypical Antipsychotic Start: 2 End: 2 take 150 mg by mouth once daily Quetiapine Active 150 MG PO DAILY December 24, 2021 3:16am Comment on above: Take 1 tablet by yesenia th daily at bedtime. Completed/Discontinued Medications Medication Drug Class(es) Dates Sig (Normalized) Sig (Original) 1 ml dexamethasone phosphate 10 mg/ml injection (2 sources) Corticosteroid Start: 05-01-2025 End: 05-01-2025 inject 10 mg by intramuscular injection once 10 mg, IntraMUSCular, Once, On 05/01/25 at 0555, For 1 dose doxycycline hyclate 100 mg oral tablet (5 sources) Tetracycline-class Drug Start: 10-02-2021 End: 12-10-2021 take 1 tablet by mouth twice daily doxycycline (VIBRA-TABS) 100 mg tablet Take 100 mg by mouth twice daily. 0 10/02/2021 12/10/2021 Discontinued Comment on above: Take 100 mg by mouth twice daily. famotidine 20 mg oral tablet (2 sources) Histamine-2 Receptor Antagonist Start: 05-01-2025 End: 05-01-2025 take 20 mg by mouth once 20 mg, Oral, Once, On Thu05/01/25 at 0555, For 1 dose hydrOXYzine pamoate 25 mg oral capsule (2 sources) Antihistamine Start: 03-16-2020 End: 03-23-2020 Hydroxyzine Pamoate (Vistaril) 25 mg capsule Discontinued 75 MG PO THREE TIMES A DAY March 16, 2020 8:24am March 23, 2020 5:02pm Problems Problem Classification Problem Date Documented Date Episodic/Chronic Abdominal pain (2 sources) Flank pain; Translations: [Unspecified abdominal pain] Episodic Acute posthemorrhagic anemia (2 sources) Acute posthemorrhagic anemia; Translations: [Acute posthemorrhagic anemia] Episodic Allergic reactions (8 sources) Urticaria; Translations: [Urticaria, unspecified] Onset: 05-01-2025 05-01-2025 Episodic Anxiety disorders (15 sources) Anxiety; Translations: [Anxiety disorder, unspecified] Onset: 12-11-2021 12-11-2021 Chronic Calculus of urinary tract (2 sources) Kidney stone; Translations: [Calculus of kidney] Episodic Fluid and electrolyte disorders (2 sources) Mild dehydration; Translations: [Dehydration] Episodic Genitourinary symptoms and ill-defined conditions (1 source) Scalding pain on urination ; Translations: [Dysuria] 11-24-2023 Episodic Hemorrhage during ; abruptio placenta; placenta previa (5 sources) Threatened miscarriage; Translations: [Threatened ] Onset: 05-02-2025 05-02-2025 Episodic Hepatitis (15 sources) Acute hepatitis C; Translations: [Acute hepatitis C without hepatic coma] Onset: 06-08-2022 06-08-2022 Episodic Immunizations and screening for infectious disease (4 sources) Patient encounter status; Translations: [Encounter for screening for human immunodeficiency virus [HIV]] Onset: 09-01-2023 Episodic Malaise and fatigue (2 sources) Fatigue; Translations: [Other fatigue] Onset: 09-01-2023 09-02-2023 Episodic Menstrual disorders (2 sources) Amenorrhea; Translations: [Amenorrhea, unspecified] Chronic Mood disorders (20 sources) Depressive disorder; Translations: [Depression] Onset: 12-11-2021 12-11-2021 Chronic Mood disorders (1 source) Mood disorders; Translations: [Depression, unspecified] Onset: 05-26-2025 Mycoses (2 sources) Onychomycosis; Translations: [Tinea unguium] Episodic Nausea and vomiting (2 sources) Nausea and vomiting; Translations: [Nausea with vomiting, unspecified] Episodic Nonspecific chest pain (2 sources) Chest wall pain; Translations: [Other chest pain] Episodic Other complications of (4 sources) delivery - delivered; Translations: [ delivery due to maternal disorder, delivered, curr hospitaliz] Episodic Other complications of (2 sources) Supervision of high risk , unspecified, unspecified trimester; Translations: [Supervision of high risk , unspecified, unspecified trimester] Onset: 05-26-2025 Episodic Other complications of (1 source) Supervision of with other poor reproductive or obstetric history, first trimester; Translations: [Supervision of with other poor reproductive or obstetric history, first trimester] Onset: 05-26-2025 Episodic Other diseases of kidney and ureters (2 sources) Hydronephrosis; Translations: [Unspecified hydronephrosis] Episodic Other female genital disorders (1 source) Vaginal lesion; Translations: [Other specified noninflammatory disorders of vagina] 11-24-2023 Episodic Other infections; including parasitic (1 source) History of hepatitis C; Translations: [Personal history of other infectious and parasitic diseases] 09-01-2023 Episodic Other infections; including parasitic (1 source) Personal history of other infectious and parasitic diseases; Translations: [History of hepatitis C] Onset: 09-01-2023 Episodic Other lower respiratory disease (2 sources) Cough; Translations: [Cough] Episodic Other nutritional; endocrine; and metabolic disorders (1 source) Unintentional weight loss; Translations: [Abnormal weight loss] Episodic Other nutritional; endocrine; and metabolic disorders (1 source) Mild thinness in adulthood; Translations: [Underweight] 09-02-2023 Episodic Other nutritional; endocrine; and metabolic disorders (1 source) Underweight; Translations: [Mildly underweight adult] Onset: 09-01-2023 Episodic Other and delivery including normal (1 source) Encounter for supervision of normal , unspecified, unspecified trimester; Translations: [Encounter for supervision of normal , unspecified, unspecified trimester] Onset: 05-26-2025 Episodic Other screening for suspected conditions (not mental disorders or infectious disease) (3 sources) Cancer cervix screening status; Translations: [Encounter for screening for malignant neoplasm of cervix] Onset: 05-26-2025 Episodic Other upper respiratory disease (1 source) Other seasonal allergic rhinitis; Translations: [Other seasonal allergic rhinitis] Onset: 05-26-2025 Chronic Other upper respiratory infections (2 sources) Upper respiratory infection; Translations: [Acute upper respiratory infection, unspecified] Episodic Poisoning by other medications and drugs (2 sources) Poisoning by other opioids, accidental (unintentional), initial encounter; Translations: [Opioid overdose] Episodic Residual codes; unclassified (2 sources) Gestation period, 39 weeks; Translations: [39 weeks gestation of ] Episodic Residual codes; unclassified (1 source) History of uterine scar from previous surgery; Translations: [History of uterine scar from previous surgery] Onset: 05-26-2025 Episodic Schizophrenia and other psychotic disorders (18 sources) Schizoaffective disorder, bipolar type; Translations: [Schizoaffective disorder, bipolar type] Onset: 12-11-2021 Chronic Substance-related disorders (17 sources) Polysubstance abuse ; Translations: [Other psychoactive substance abuse, uncomplicated] Onset: 12-11-2021 12-11-2021 Chronic Substance-related disorders (2 sources) Cannabis use, unspecified, uncomplicated; Translations: [Cannabis use, unspecified, uncomplicated] Onset: 05-26-2025 Episodic Suicide and intentional self-inflicted injury (2 sources) Suicidal thoughts; Translations: [Suicidal ideations] Episodic Thyroid disorders (20 sources) Goiter; Translations: [Nontoxic goiter, unspecified] Onset: 10-18-2021 Resolved: 06-05-2022 Chronic Urinary tract infections (2 sources) Urinary tract infectious disease; Translations: [Urinary tract infection, site not specified] Episodic Results Test Name Value Interpretation Reference Range Facil ity PAP I-G w/rfx hrHPV-Aptimaon 05-30-2025 ADEQ Comment Normal . [facility] Comment on above: Order Comment: Speci men Comment: [id number] Specimen Comment: No. of containers..01 ThinPrep Vial Result Comment: Sati sfactory for evaluation. No endocervical component is identified. An endocervical component is not commonly seen in the patient. Performed By: #### L 7400.0353, L7000.1800, L505.5000 #### [facility] [address] [place], [address] COMM . Normal . [facility] Comment on above: Order Comment: Speci men Comment: [id number] Specimen Comment: No. of containers..01 ThinPrep Vial Performed By: #### L 7400.0353, L7000.1800, L505.5000 #### [facility] [address] [place], [address] COMMENT Comment Normal . [facility] Comment on above: Order Comment: Speci men Comment: [id number] Specimen Comment: No. of containers..01 ThinPrep Vial Result Comment: This liquid based ThinPrep(R) pap test was interpreted using the tsumobi(R) Genius(TM) Cervical Algorithm whole slide imaging system. Performed By: #### L 7400.0353, L7000.1800, L505.5000 #### [facility] [address] [place], [address] DIAG Comment Normal . [facility] Comment on above: Order Comment: Speci men Comment: [id number] Specimen Comment: No. of containers..01 ThinPrep Vial Result Comment: NEGA TIVE FOR INTRAEPITHELIAL LESION OR MALIGNANCY. Performed By: #### L 7400.0353, L7000.1800, L505.5000 #### [facility] [address] [place], [address] HPV RFLX Comment Normal . [facility] Comment on above: Order Comment: Speci men Comment: [id number] Specimen Comment: No. of containers..01 ThinPrep Vial Result Comment: The HPV DNA reflex criteria were not met with this specimen result therefore, no HPV testing was performed. Performed at: [address] [id number] Hazardous Substances Scientist: Jazlyn Osorio MD, Phone: [phone] Performed By: #### L 7400.0353, L7000.1800, L505.5000 #### [facility] [address] [place], [address] PAPSMR Comment Normal . [facility] Comment on above: Order Comment: Speci men Comment: [id number] Specimen Comment: No. of containers..01 ThinPrep Vial Result Comment: The Pap smear is a screening test designed to aid in the detection of premalignant and malignant conditions of the uterine cervix. It is not a diagnostic procedure and should not be used as the sole means of detecting cervical cancer. Both false-positive and false-negative reports do occur. Performed By: #### L 7400.0353, L7000.1800, L505.5000 #### [facility] [address] [place], [address] PERFORM Comment Normal . [facility] Comment on above: Order Comment: Speci men Comment: [id number] Specimen Comment: No. of containers..01 ThinPrep Vial Result Comment: Rickie Lantigua Engraver Wood (ASCP) Performed By: #### L 7400.0353, L7000.1800, L505.5000 #### [facility] [address] [place], [address] Chlamydia/GC NATASHA aptimaon CHLAMY,NUC ACID Negative Normal Negative [facility] Comment on above: Performed By: #### L 7400.0353, L7000.1800, L505.5000 #### [facility] [address] [place], [place], [address] GC BY NUC ACID Negative Normal Negative [facility] Comment on above: Result Comment: Perf ormed at: = - [facility] [place], [place] [id number] Hazardous Substances Scientist: Jazlyn Osorio MD, Phone: [phone] Performed By: #### L 7400.0353, L7000.1800, L505.5000 #### [facility] [address] [place], [address] L3410.9992on 05-29-2025 [facility] [place] . [facility] Comment on above: Order Comment: [id number] 0HEP C RNA, DIAGNOSIS-SERUM FZ Result Comment: Test Ordered: [id number] HCV RNA Diagnosis, NATASHA HCV RNA, Quantitation Note: IU/mL BN HCV Not Detected Reference Range: . No evidence of active HCV infection. HCV RNA, log10 BRAND MARKETING COORDINATOR NOLAB Reference Range: . Test Information: Comment BN Reference Range: . The quantitative range of this assay is 15 IU/mL to 100 million IU/mL. Performed at: - [facility] [id number] Hazardous Substances Scientist: Jackie Lee MD, Phone: [phone] Performed at: [facility] [id number] Hazardous Substances Scientist: Robin Koch PhD, Phone: [phone] Performed By: #### L 7400.0353, L7000.1800, L505.5000 #### [facility] [address] [facility] [address] [place], [place], [address] CBC W/Diff, Automatedon 11-0 Absolute Lymph 1.68 X10 3/uL Normal 0.83-4.51 [facility] Comment on above: Performed By: #### L 501.9520, L3890.6102, BTS, L509.4006, L506.0400, L3890.6301, L509.8002, L100.0100, L3890.6006, L900.0098 #### [facility] [address] [place], [address] Absolute Neut 8.1 X10 3/uL High 2.0-7.7 [facility] Comment on above: Performed By: #### L 501.9520, L3890.6102, BTS, L509.4006, L506.0400, L3890.6301, L509.8002, L100.0100, L3890.6006, L900.0098 #### [facility] [address] [place], [address] Basophils/100 WBC (Bld) 0.5 % Normal 0-1 [facility] Comment on above: Performed By: #### L 501.9520, L3890.6102, BTS, L509.4006, L506.0400, L3890.6301, L509.8002, L100.0100, L3890.6006, L900.0098 #### [facility] [address] [place], [address] Eosinophils/100 WBC (Bld) 1.5 % Normal 0-5 [facility] Comment on above: Performed By: #### L 501.9520, L3890.6102, BTS, L509.4006, L506.0400, L3890.6301, L509.8002, L100.0100, L3890.6006, L900.0098 #### [facility] [address] [place], [address] Erythrocyte distribution width (RBC) [Ratio] 12.5 % Normal 11.6-14.6 [facility] Comment on above: Performed By: #### L 501.9520, L3890.6102, BTS, L509.4006, L506.0400, L3890.6301, L509.8002, L100.0100, L3890.6006, L900.0098 #### [facility] [address] [place], [address] Hematocrit (Bld) [Volume fraction] 36.8 % Low 37-47 [facility] Comment on above: Performed By: #### L 501.9520, L3890.6102, BTS, L509.4006, L506.0400, L3890.6301, L509.8002, L100.0100, L3890.6006, L900.0098 #### [facility] [address] [place], [address] Hemoglobin (Bld) [Mass/Vol] 12.7 g/dL Normal 12.0-15.0 [facility] Comment on above: Performed By: #### L 501.9520, L3890.6102, BTS, L509.4006, L506.0400, L3890.6301, L509.8002, L100.0100, L3890.6006, L900.0098 #### [facility] [address] [place], [address] IG% 0.300 Normal 0.0-0.9 [facility] Comment on above: Result Comment: IG% - Immature Granulocytes (promyelocytes, myelocytes and metamyelocytes) > 1% indicates that a LEFT SHIFT is Present. Performed By: #### L 501.9520, L3890.6102, BTS, L509.4006, L506.0400, L3890.6301, L509.8002, L100.0100, L3890.6006, L900.0098 #### [facility] [address] [place], [address] Lymphocytes/100 WBC (Bld) 15.8 % Low 19-41 [facility] Comment on above: Performed By: #### L 501.9520, L3890.6102, BTS, L509.4006, L506.0400, L3890.6301, L509.8002, L100.0100, L3890.6006, L900.0098 #### [facility] [address] [place], [address] MCH (RBC) [Entitic mass] 32.0 pg Normal 27.0-32.0 [facility] Comment on above: Performed By: #### L 501.9520, L3890.6102, BTS, L509.4006, L506.0400, L3890.6301, L509.8002, L100.0100, L3890.6006, L900.0098 #### [facility] [address] [place], [address] MCHC (RBC) [Mass/Vol] 34.5 g/dL Normal 32-36 [facility] Comment on above: Performed By: #### L 501.9520, L3890.6102, BTS, L509.4006, L506.0400, L3890.6301, L509.8002, L100.0100, L3890.6006, L900.0098 #### [facility] [address] [place], [address] MCV (RBC) [Entitic vol] 92.7 fL Normal 81-99 [facility] Comment on above: Performed By: #### L 501.9520, L3890.6102, BTS, L509.4006, L506.0400, L3890.6301, L509.8002, L100.0100, L3890.6006, L900.0098 #### [facility] [address] [place], [address] Monocytes/100 WBC (Bld) 5.3 % Normal 0-10 [facility] Comment on above: Performed By: #### L 501.9520, L3890.6102, BTS, L509.4006, L506.0400, L3890.6301, L509.8002, L100.0100, L3890.6006, L900.0098 #### [facility] [address] [place], [address] Neutrophils/100 WBC (Bld) 76.6 % High 47-70 [facility] Comment on above: Performed By: #### L 501.9520, L3890.6102, BTS, L509.4006, L506.0400, L3890.6301, L509.8002, L100.0100, L3890.6006, L900.0098 #### [facility] [address] [place], [address] Nucleated RBC (Bld) [#/Vol] 0 10*3/uL Normal 0-5 [facility] Comment on above: Performed By: #### L 501.9520, L3890.6102, BTS, L509.4006, L506.0400, L3890.6301, L509.8002, L100.0100, L3890.6006, L900.0098 #### [facility] [address] [place], [address] Platelet mean volume (Bld) [Entitic vol] 11.3 fL Normal 6.2-12.0 [facility] Comment on above: Performed By: #### L 501.9520, L3890.6102, BTS, L509.4006, L506.0400, L3890.6301, L509.8002, L100.0100, L3890.6006, L900.0098 #### [facility] [address] [place], [address] Platelets (Bld) [#/Vol] 235 10*3/uL Normal 150-450 [facility] Comment on above: Performed By: #### L 501.9520, L3890.6102, BTS, L509.4006, L506.0400, L3890.6301, L509.8002, L100.0100, L3890.6006, L900.0098 #### [facility] [address] [place], [place], [address] RBC (Bld) [#/Vol] 3.97 10*6/uL Low 4.2-5.4 [facility] Comment on above: Performed By: #### L 501.9520, L3890.6102, BTS, L509.4006, L506.0400, L3890.6301, L509.8002, L100.0100, L3890.6006, L900.0098 #### [facility] [address] [place], [address] RDW SD 42.7 fl Normal 35.1-43.9 [facility] Comment on above: Performed By: #### L 501.9520, L3890.6102, BTS, L509.4006, L506.0400, L3890.6301, L509.8002, L100.0100, L3890.6006, L900.0098 #### [facility] [address] [place], [place], [address] WBC (Bld) [#/Vol] 10.6 10*3/uL Normal 4.4-11.0 [facility] Comment on above: Performed By: #### L 501.9520, L3890.6102, BTS, L509.4006, L506.0400, L3890.6301, L509.8002, L100.0100, L3890.6006, L900.0098 #### [facility] [address] [place], [address] HIVon 05-26-2025 HIV Non-Reactive Normal Nonreactive [facility] Comment on above: Result Comment: Non- Reactive Reactive Repeatedly reactive samples must be confirmed according to CDC recommended confirmatory algorithms. The subresults for either HIVAG or AHIV can be used as an aid in the selection of the confirmation algorithm for reactive samples. Send out specimens with Reactive results to [facility] for confirmation. Order the HIV antibody detection and differentiation: [id number] Performed By: #### L 7400.0353, L7000.1800, L505.5000 #### [facility] [address] [place], [address] Hepatitis C Antibodyon 05-26 Hepatitis C Ab REAC Normal Nonreactive [facility] Comment on above: Result Comment: Reac tive: Presumptive evidence of antibodies to HCV. Follow CDC recommendations for supplemental testing. Non-Reactive: Antibodies to HCV were not detected; does not exclude the possibility of exposure to HCV Reactive Results are presumptive evidence of antibodies to HCV. Follow CDC recommendations for supplemental testing. Order confirmation testing: HCV Quant by PCR testing - HCVPCR #[id number] Non Reactive: < 0.8 Equivocal: >/= 0.8 to < 1.0 Reactive: >/= 1.0 The [facility] requires that a reactive/equivocal HCV antibody result be sent out for confirmation. HCV Quant by PCR testing. Performed By: #### L 7400.0353, L7000.1800, L505.5000 #### [facility] [address] [place], [address] L3890.6102on 05-26-2025 HEP B Surf Ag Non-Reactive Normal Nonreactive [facility] Comment on above: Result Comment: Reac tive: Presumptive evidence of HBV. Repeatedly reactive samples must be confirmed using a neutralization test ([employer] HBsAg Confirmatory Test) Non-Reactive: HBsAg not detected; does not exclude the possibility of exposure to HBV Performed By: #### L 7400.0353, L7000.1800, L505.5000 #### [facility] [address] [place], [address] L509.4006on 05-26-2025 Rubella IgG REAC Normal Nonreactive [facility] Comment on above: Result Comment: Anti body Result: Interpretation Non-Reactive: Non-Immune Reactive: Immune The following results were obtained with the [employer] Rubella IgG assay. Results from assays of other manufacturers cannot be used interchangeably. Performed By: #### L 501.9520, L3890.6102, BTS, L509.4006, L506.0400, L3890.6301, L509.8002, L100.0100, L3890.6006, L900.0098 #### [facility] [address] [place], [address] NATERAon 05-26-2025 NATURA SEE SCANNED REPORT Normal [facility] Comment on above: Order Comment: Comme nts: NIPT with gender carrier Performed By: #### L 501.9520, L3890.6102, BTS, L509.4006, L506.0400, L3890.6301, L509.8002, L100.0100, L3890.6006, L900.0098 #### [facility] [address] [place], [place], [address] Pressfitter Office Visit Reporton 05-26-2025 Pressfitter Office Visit Report [facility] [address], [address] [place] [address] OFFICE VISIT Date of Service: 05/26/25 MR#: [id number] Acct: [id number] Name: ALBARO FITZPATRICK Rep #: [id number] : 1995 Provider: VÍCTOR Tucker ams Age/Sex: 29/F Location: [facility] [place] Status: Signed Intake Vital Signs 03/20/23 07:10 05/03/25 13:00 05/26/25 08:28 Height 5 ft 7 in 5 ft 7 in 5 ft 7 in Weight: 143 lb BMI 22.4 BP 109/54 L Intake Visit Reasons: *NEW* NOB LMP 03/17, INEZ 12/22 Aws Solution Architect Required: No Is patient in pain?: No Allergies No Known Allergies Allergy (Verified 05/26/25 08:25) Medications ???Medication ???Instructions ???Recorded ???Confirmed ???Type multivitamin no.47-iron fum 27 cap PO 05/03/25 05/26/25 History mg-folate no.1 1 mg-dha 300 mg capsule (PNV-DHA) Last Menstrual Period: 03/17/25 Zika: Zika virus screening: Negative : Yes PFSH PFSH Medical History Hepatitis C PTSD (post-traumatic stress disorder) Depression Bipolar disorder Anxiety Headache Anemia Alcohol abuse delivery due to maternal disorder, delivered, curr hospitaliz Surgical History History of tonsillectomy History of section, low transverse Family History Mother Cancer thyroid Thyroid disorder Anxiety and depression blood clots mental disorders Heart disease Brother mental disorders bipolar, depression anxiety- Both brothers Social History adopted: No household members: significant other and children number of children: 2 current occupational status: employed 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 current occupational exposures/hazards: Yes (ceramic powder dust, mostly away from chemicals) pets and animals: Yes (Avoid litterbox) pets and animals: cat(s) history of recent travel: No sexually active: Yes Smoking Status: Current every day smoker tobacco type: cigarettes and e-cigarettes Electronic Cigarette Use: with nicotine quit status: considering quitting alcohol intake: current details: heavy drinker, quit since found out , not while substance use type: former substance user, marijuana, heroin, opiates and methamphetamine well-balanced diet: daily or most days caffeine: Yes Type: coffee Number of servings: 1 eating out: 1-3 times/week during the past year weight has: increased > 10 lbs what type of physical activity do you participate in: none [place]/latter day: Mormon seatbelt use: always do you feel safe at home: Yes additional social history: Guido Drake Jr. History 3 Elective abortions Hx Para 2 Spontaneous abortions Hx # Term Pregnancies Ectopic pregnancies Hx # Pregnancies Multiple births # of living children 2 Past Pregnancies Del. Date Name GA/Weeks Outcome Route Bth Weight Infant Gen Labor Lgth Anesthesia Del Locatn Provider FOB 07/18/15 Ant 38 live - full term 6#13oz Male spinal [facility] Eulalio Horton 02/12/17 Nicole 39 live - full term 6# Female spinal [facility] Dejan Barcenas Delivery Date: 07/18/15 Last Updated by: Patricia Mendes placenta previa vs abruption, hemorrahage, emergency cs HPI *NEW* NOB LMP 03/17, INEZ 12/22 Details: ALBARO FITZPATRICK is a 29 year old who presents for New OB visit. OB Visit INEZ Calculator Estimated Delivery Date Method Current WG Current Estimate 12/22/25 LMP (Certain) 10w 0d Other Estimates 12/21/25 Ultrasound #1 10w 1d Comments: HIV: Urine Culture: Sequential Screen: NIPT Screen: Estimated Due Date: 12/22/25 Expected Delivery Route/Plan Labor Preferences- CB/BF classes: [] labor support person: [] labor intervention preferences: [] pain management options preferred: [] cut cord/dad catch: [] : [] PP control planned: [] discussed possible routes of delivery and associated risks: [] special requests: [] Specific Issue/Plans Covid status: [] Flu vaccine: [] Tdap vaccine: [] Rhogam: [] LARC form signed: [] Problem list reviewed and updated with the most current plan of care details and appropriate orders placed. Relevant counseling for the gestational age provided. Continue routine care and follow up unless otherwise noted in visit notes/problem list details Initial Weight: Not Recorded Date -???-???-???-???-?? ?-???-???-???-???-? ??-???-???- EGA Weight BP Urine Prot -???-???-???-???-?? ?-???-???-???-???-? ??-???-???- Glucose FHR FuHt Pres Dilation -???-???-???-???-?? ?-???-???-???-???-? ??-???-???- Effaced (more content not included)... Normal [facility] Syphilis Antibodieson 2024 Syphilis Abs Non-Reactive Normal Nonreactive [facility] Comment on above: Performed By: #### L 7400.0353, L7000.1800, L505.5000 #### [facility] [address] [place], [address] T4 Free Directon 05-26-2025 T4 FREE DIRECT 1.20 ng/dL Normal 0.76-1.46 [facility] Comment on above: Order Comment: NIPT with gender carrier Performed By: #### L 501.9520, L3890.6102, BTS, L509.4006, L506.0400, L3890.6301, L509.8002, L100.0100, L3890.6006, L900.0098 #### [facility] [address] [place], [address] Thyroid Stim Hormone (TSH)on 05-26-2025 TSH 0.372 uIU/mL Normal 0.300-4.200 [facility] Comment on above: Performed By: #### L 501.9520, L3890.6102, BTS, L509.4006, L506.0400, L3890.6301, L509.8002, L100.0100, L3890.6006, L900.0098 #### [facility] [address] [place], [address] Type AND Screenon 05-26-2025 ABO and Rh group Nom (Bld) Blood group O Rh(D) positive Normal [facility] Comment on above: Order Comment: PN Performed By: #### L 7400.0353, L7000.1800, L505.5000 #### [facility] [address] [place], [address] Urine Drug Screen (VISTA)on 05-26-2025 Fentanyl Normal <5 ng/mL [facility] Comment on above: Order Comment: UNK Result Comment: NO U RINE COLLECTED CONFIRMATORY TESTING FOR ALL POSITIVE URINE DRUG SCREEN RESULTS WILL ONLY BE SENT OUT UPON PHYSICIAN ORDER. Pipo Pro Urine Drug Screen methods provide only preliminary analytical test results. A more specific alternate chemical method must be used in order to obtain a confirmed analytical result. Gas chromatography/mass spectrometery (GC/MS) is the preferred confirmatory method. Clinical consideration and professional judgement should be applied to any drug of abuse test result, particularly when preliminary positive results are used. Urine TCA testing must be ordered separately. Use test mnemonic: UTCA Performed By: #### L 7400.0353, L7000.1800, L505.5000 #### [facility] [address] [place] [address] AMPHETAMINES Normal <1000 ng/mL [facility] Comment on above: Order Comment: UNK Result Comment: NO U RINE COLLECTED Performed By: #### L 7400.0353, L7000.1800, L505.5000 #### [facility] [address] [facility] [address] BARBITIURATES Normal < 200 ng/mL [facility] Comment on above: Order Comment: UNK Result Comment: NO U RINE COLLECTED Performed By: #### L 7400.0353, L7000.1800, L505.5000 #### [facility] [address] [facility] [address] BENZODIAZIPINE Normal < 200 ng/mL [facility] Comment on above: Order Comment: UNK Result Comment: NO U RINE COLLECTED Performed By: #### L 7400.0353, L7000.1800, L505.5000 #### [facility] [address] [facility] [address] BUP Ur Drug Scr Normal < 200 ng/mL [facility] Comment on above: Order Comment: UNK Result Comment: NO U RINE COLLECTED Performed By: #### L 7400.0353, L7000.1800, L505.5000 #### [facility] [address] [facility] [address] COCAINE Normal < 300 ng/mL [facility] Comment on above: Order Comment: UNK Result Comment: NO U RINE COLLECTED Performed By: #### L 7400.0353, L7000.1800, L505.5000 #### [facility] [address] [place], [address] METHADONE Normal < 300 ng/mL [facility] Comment on above: Order Comment: UNK Result Comment: NO U RINE COLLECTED Performed By: #### L 7400.0353, L7000.1800, L505.5000 #### [facility] [address] [place], [address] OPIATES Normal < 300 ng/mL [facility] Comment on above: Order Comment: UNK Result Comment: NO U RINE COLLECTED Performed By: #### L 7400.0353, L7000.1800, L505.5000 #### [facility] [address] [place], [address] OXYCODONE Normal < 100 ng/mL [facility] Comment on above: Order Comment: UNK Result Comment: NO U RINE COLLECTED Performed By: #### L 7400.0353, L7000.1800, L505.5000 #### [facility] [address] [place], [address] PCP Normal < 25 ng/mL [facility] Comment on above: Order Comment: UNK Result Comment: NO U RINE COLLECTED Performed By: #### L 7400.0353, L7000.1800, L505.5000 #### [facility] [address] [place], [address] THC Normal < 50 ng/mL [facility] Comment on above: Order Comment: UNK Result Comment: NO U RINE COLLECTED Performed By: #### L 7400.0353, L7000.1800, L505.5000 #### [facility] [address] [place], [address] Pressfitter Office Visit Reporton 05-03-2025 Pressfitter Office Visit Report [facility], [address] [place] [address] OFFICE VISIT Date of Service: 05/03/25 MR#: [id number] Acct: [id number] Name: ALBARO FITZPATRICK Rep #: [id number] : 1995 Provider: Dr. Jessica goode MD Age/Sex: 29/F Location: [facility] Status: Signed Intake Vital Signs 03/20/23 07:10 05/03/25 13:00 Height 5 ft 7 in 5 ft 7 in Weight: 137 lb 1 oz BMI 21.4 BP 115/74 Intake Visit Reasons: Possible miscarriage [employer]ws Solution Architect Required: No Is patient in pain?: Yes (cramping) Allergies No Known Allergies Allergy (Verified 05/03/25 13:02) Medications ???Medication ???Instructions ???Recorded ???Confirmed ???Type multivitamin no.47-iron fum 27 cap PO 05/03/25 05/03/25 History mg-folate no.1 1 mg-dha 300 mg capsule (PNV-DHA) prednisone 5 mg tablet 5 mg PO DIRECTED 05/03/2505/03 History Is last menstrual period known: Yes Last Menstrual Period: 03/14/25 Post menopausal: No Patient : Yes : No PFSH Medical History Hepatitis C PTSD (post-traumatic stress disorder) Depression Bipolar disorder Anxiety Headache Anemia Alcohol abuse delivery due to maternal disorder, delivered, curr hospitaliz Surgical History History of tonsillectomy History of section, low transverse Family History Mother Cancer thyroid Thyroid disorder Anxiety and depression blood clots mental disorders Heart disease Social History household members: significant other number of children: 2 current occupational status: employed 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 [employer] Smoking Status: Current every day smoker tobacco type: cigarettes and e-cigarettes Electronic Cigarette Use: not used quit status: not considering quitting alcohol intake: current details: heavy drinker, quit in 2019, still has an occasional drink substance use type: former substance user, heroin, opiates and methamphetamine what type of physical activity do you participate in: none do you feel safe at home: Yes HPI Possible miscarriage Details: ALBARO FITZPATRICK is a 29 year old who presents for early bleedig some cramping seen in er yesterday no info given, patient anxious. 6w5d viable IUP seen 5mm subchorionic hematoma seen Female Reproductive History Last Menstrual Period: 03/14/25 History 3 Elective abortions Hx Para 2 Spontaneous abortions Hx # Term Pregnancies Ectopic pregnancies Hx # Pregnancies Multiple births # of living children 2 Past Pregnancies Del. Date Name GA/Weeks Outcome Route Bth [facility] Ant live - full term Unknown 2016 Nicole ROS Const Constitutional: Reports as per HPI; Denies fever(s) ENT ENT: Reports system reviewed and no additional complaints, except as documented Cardio Card: Reports system reviewed and no additional complaints, except as documented Resp Resp: Reports system reviewed and no additional complaints, except as documented GI GI: Reports as per HPI : Reports as per HPI Musc Musc: Reports system reviewed and no additional complaints, except as documented Skin Skin/Breast: Reports system reviewed and no additional complaints, except as documented Neuro Neuro: Reports system reviewed and no additional complaints, except as documented Endo Endo: Reports system reviewed and no additional complaints, except as documented Exam Const General: healthy appearing, comfortable and no acute distress [facility] Head: normal to inspection and normocephalic Neck Neck: no lymphadenopathy noted Thyroid: thyroid normal Chest Chest palpation inspection: normal inspection of the chest Resp Effort Inspection: normal respiratory effort Cardio Rate: regular rate Rhythm: regular rhythm GI Inspection: normal to inspection Palpation: soft and nontender External Female Exam: normal external appearance Speculum Exam - Vagina: normal appearance of the vagina and vaginal bleeding Bimanual Exam- Vagina Uterus: uterine shape normal and non-tender OB/External Speculum: vaginal bleeding Speculum Exam: vaginal bleeding Skin General: no rashes or lesions noted Neuro General: no focal motor deficits Extrem General: normal to inspection and no pedal edema Psych Appearance: grossly normal Coding Level of Care Code Off vis,new,level 3 Diagnoses Z34.90 Threatened O20.0 Assessment and Plan Assessme (more content not included)... Normal [facility] ABO RH BLOOD TYPEon 05-02-20 ABO GROUPING O Normal [facility] Comment on above: Performed By: #### L [id number] #### Band Instrument Repairer: STEPH PAYTON ([id number]) [facility] (R) [address] [facility]. [address] RH TYPE IN BLOOD Positive Normal [facility] Comment on above: Performed By: #### L [id number] #### Band Instrument Repairer: STEPH PAYTON ([id number]) [facility] (S[facility]) [address] [facility]. [address] ABO and Rh group panel (Bld) on 05-02-2025 ABO group Nom (Bld) O [facility] D Ag Ql (RBC) Positive [facility] ED Nursing Noteon 05-02-2025 ED Nursing Note Patient states she had some brown vaginal discharge in her underwear earlier today and when she urinated passed a blood clot that looked like a sac. Patient is currently 8 wks . [facility] ED Provider Noteon ED Provider Note EMERGENCY DEPARTMENT ENCOUNTER Pt Name: Albaro Fitzpatrick Birthdate 1995 Date of evaluation: 05/02/2025 ED Provider: Lala Davis MD CHIEF COMPLAINT Chief Complaint Patient presents with Vaginal Bleeding - HISTORY OF PRESENT ILLNESS I wore appropriate PPE for the entirety of this encounter. HPI Albaro Fitzpatrick is a 29 y.o. female who presents to the emergency department complaining of pelvic cramping and spotting of brownish material. She believes she may have passed a small blood clot as well. Patient states that she is 6-1/2 weeks . She is Ab0. She called her cancer program director who schedule her an appointment tomorrow. Nursing Notes were reviewed. Limitations to history: None Outside historians: None REVIEW OF SYSTEMS Review of Systems Constitutional: Negative for chills and fever. HENT: Negative for ear pain and sore throat. Eyes: Negative for pain and visual disturbance. Respiratory: Negative for cough and shortness of breath. Cardiovascular: Negative for chest pain and palpitations. Gastrointestinal: Negative for abdominal pain and vomiting. Genitourinary: Positive for pelvic pain and vaginal bleeding. Negative for dysuria and hematuria. Musculoskeletal: Negative for arthralgias and back pain. Skin: Negative for color change and rash. Neurological: Negative for seizures and syncope. All other systems reviewed and are negative. PAST MEDICAL HISTORY Medical History[1] SURGICAL HISTORY Surgical History[2] CURRENT MEDICATIONS Previous Medications METHYLPREDNISOLONE (MEDROL DOSPAK) 4 MG TABLETS Follow schedule on package instructions ALLERGIES Patient has no known allergies. FAMILY HISTORY Family History[3] SOCIAL HISTORY Social History[4] SCREENINGS PHYSICAL EXAM ED Triage Vitals [05/02/25 1706] Temp Heart Rate Resp BP 36.7 ?C (98 ?F) 83 18 122/76 SpO2 Temp Source Heart Rate Source Patient Position 100 % Oral -- Sitting BP Location FiO2 (%) Right arm -- Physical Exam Vitals and nursing note reviewed. Constitutional: General: She is not in acute distress. Appearance: She is well-developed. Comments: The patient is a young female found lying on a cart. She is alert and oriented. She answers questions appropriately. HENT: Head: Normocephalic and atraumatic. Eyes: Conjunctiva/sclera: Conjunctivae normal. Cardiovascular: Rate and Rhythm: Normal rate and regular rhythm. Heart sounds: No murmur heard. Pulmonary: Effort: Pulmonary effort is normal. No respiratory distress. Breath sounds: Normal breath sounds. Abdominal: Palpations: Abdomen is soft. Tenderness: There is no abdominal tenderness. Musculoskeletal: General: No swelling. Cervical back: Neck supple. Skin: General: Skin is warm and dry. Capillary Refill: Capillary refill takes less than 2 seconds. Neurological: Mental Status: She is alert. Psychiatric: Mood and Affect: Mood normal. DIAGNOSTIC RESULTS RADIOLOGY (Per Emergency Physician): Interpretation per the Radiologist below, if available at the time of this note: US OB transvaginal Final Result 1. Single, live intrauterine . Report Dictated on Electronically Signed By: Dangelo Sadler MD Electronically Signed Date/Time: 05/02/2025 5:59 PM EDT LABS: Labs Reviewed ABO RH BLOOD TYPE Result Value ABO Grouping O Rh Type POS HCG QUANTITATIVE BLOOD HCG QUANTITATIVE 58,474.8 Narrative: Values in should double every 2 to 3 days for the first 6 weeks. Elevated concentrations of human chorionic gonadotropin (hCG) measured in the first trimester of are observed in normal , but may serve as an indication of chorionic carcinoma, hydatiform mole, or multiple . Decreasing hCG concentrations indicate threatened or missed , recent termination of , ectopic , gestosis or intrauterine . Katelynn- and postmenopausal females may have detectable hCG concentrations (< or = to 14 mIU/mL) due to pituitary production of hCG. Serum follicle-stimulatin g hormone measurement may aid in ruling-out in this population. Cutoffs of greater than 20 to 45 mIU/mL have been suggested and are method dependent. False-elevations (called phantom human chorionic gonadotropin: hCG) may occur with patients who have human antianimal or heterophilic antibodies. Some specimens may not dilute linearly due to abnormal forms of hCG. Elevated hCG concentrations not associated with are found in patients with other diseases such as tumors of the germ cells, ovaries, bladder, pancreas, stomach, lungs, and liver. This test is not intended to detect or monitor tumors or gestational trophoblastic disease. All other labs were within normal range or not returned as of this dictation. EMERGENCY DEPARTMENT COURSE and DIFFERENTIAL DIAGNOSIS/MDM: Vitals: Vital (more content not included)... Normal [facility] HCG QUANTITATIVE BLOODon HCG QUANTITATIVE 01200.8 mIU/mL Normal Females <5 [facility] Comment on above: Result Comment: ERIK Moses COMMENTS: Values in should double every 2 to 3 days for the first 6 weeks. Elevated concentrations of human chorionic gonadotropin (hCG) measured in the first trimester of are observed in normal , but may serve as an indication of chorionic carcinoma, hydatiform mole, or multiple . Decreasing hCG concentrations indicate threatened or missed , recent termination of , ectopic , gestosis or intrauterine . Katelynn- and postmenopausal females may have detectable hCG concentrations (< or = to 14 mIU/mL) due to pituitary production of hCG. Serum follicle-stimulating hormone measurement may aid in ruling-out in this population. Cutoffs of greater than 20 to 45 mIU/mL have been suggested and are method dependent. False-elevations (called phantom human chorionic gonadotropin: hCG) may occur with patients who have human antianimal or heterophilic antibodies. Some specimens may not dilute linearly due to abnormal forms of hCG. Elevated hCG concentrations not associated with are found in patients with other diseases such as tumors of the germ cells, ovaries, bladder, pancreas, stomach, lungs, and liver. This test is not intended to detect or monitor tumors or gestational trophoblastic disease. Performed By: #### L [id number] #### Band Instrument Repairer: STEPH PAYTON ([id number]) [facility] ([facility]) [address] [place] [address] Laboratory - Chemistry and C hemistry - challengeon 05-02-2025 [place] [address].8 m[IU]/mL Fema les <5 mIU/mL [facility] No Panel Informationon 05-02 Values in should double every 2 to 3 days for the first 6 weeks. Elevated concentrations of human chorionic gonadotropin (hCG) measured in the first trimester of are observed in normal , but may serve as an indication of chorionic carcinoma, hydatiform mole, or multiple . Decreasing hCG concentrations indicate threatened or missed , recent termination of , ectopic , gestosis or intrauterine . Katelynn- and postmenopausal females may have detectable hCG concentrations (< or = to 14 mIU/mL) due to pituitary production of hCG. Serum follicle-stimulatin g hormone measurement may aid in ruling-out in this population. Cutoffs of greater than 20 to 45 mIU/mL have been suggested and are method dependent. False-elevations (called phantom human chorionic gonadotropin: hCG) may occur with patients who have human antianimal or heterophilic antibodies. Some specimens may not dilute linearly due to abnormal forms of hCG. Elevated hCG concentrations not associated with are found in patients with other diseases such as tumors of the germ cells, ovaries, bladder, pancreas, stomach, lungs, and liver. This test is not intended to detect or monitor tumors or gestational trophoblastic disease. [facility] OB TRANSVAGINALon 025 US OB TRANSVAGINAL Patient Name: ALBARO FITZPATRICK : 1995 Exam Date/Time: 05/02/2025 17:10 Procedure: US OB TRANSVAGINAL Ordering Provider: DAVIS MICHAEL Reason For Exam: cramping and vag bleeding ULTRASOUND OB, TRANSVAGINAL CLINICAL INDICATION: cramping and vag bleeding TECHNIQUE: Real-time, transvaginal sonography of the pelvis. Doppler and spectral waveform analysis of the ovaries, if they were visualized. COMPARISON: None. FINDINGS: There is a single, live intrauterine . Ultrasound estimated gestational age is 6 weeks 4 days. Ultrasound estimated date of delivery is December,. heart motion is detected. Cervical length 4.7 cm and appears closed. Small nabothian cyst(s) in the lower uterine segment. The right ovary measures 3.1 x 2.5 x 3.9 cm and is grossly unremarkable. The left ovary measures 3.6 x 2.2 x 2.7 cm and is grossly unremarkable. Duplex Doppler shows appropriate blood flow in the bilateral ovaries. Multiple, serpiginous parametrial vessels noted bilaterally. No adnexal masses or significant free pelvic fluid. IMPRESSION: 1. Single, live intrauterine . Report Dictated on Electronically Signed By: Dangelo Sadler MD Electronically Signed Date/Time: 05/02/2025 5:59 PM EDT [facility] US Pelvis transvaginalon 1. Single, live intrauterine . Report Dictated on Electronically Signed By: Dangelo Sadler MD Electronically Signed Date/Time: 05/02/2025 5:59 PM EDT [facility] Patient Name: ALBARO FITZPATRICK : 1995 Exam Date/Time: 05/02/2025 17:10 Procedure: US OB TRANSVAGINAL Ordering Provider: DAVIS MICHAEL Reason For Exam: cramping and vag bleeding ULTRASOUND OB, TRANSVAGINAL CLINICAL INDICATION: cramping and vag bleeding TECHNIQUE: Real-time, transvaginal sonography of the pelvis. Doppler and spectral waveform analysis of the ovaries, if they were visualized. COMPARISON: None. FINDINGS: There is a single, live intrauterine . Ultrasound estimated gestational age is 6 weeks 4 days. Ultrasound estimated date of delivery is December,. heart motion is detected. Cervical length 4.7 cm and appears closed. Small nabothian cyst(s) in the lower uterine segment. The right ovary measures 3.1 x 2.5 x 3.9 cm and is grossly unremarkable. The left ovary measures 3.6 x 2.2 x 2.7 cm and is grossly unremarkable. Duplex Doppler shows appropriate blood flow in the bilateral ovaries. Multiple, serpiginous parametrial vessels noted bilaterally. No adnexal masses or significant free pelvic fluid. [facility] Dangelo Sadler MD - 05/02/2025 Patient Name: ALBARO FITZPATRICK : 1995 [id number] Exam Date/Time: 05/02/2025 17:10 Procedure: US OB TRANSVAGINAL Ordering Provider: DAVIS MICHAEL Reason For Exam: cramping and vag bleeding ULTRASOUND OB, TRANSVAGINAL CLINICAL INDICATION: cramping and vag bleeding TECHNIQUE: Real-time, transvaginal sonography of the pelvis. Doppler and spectral waveform analysis of the ovaries, if they were visualized. COMPARISON: None. FINDINGS: There is a single, live intrauterine . Ultrasound estimated gestational age is 6 weeks 4 days. Ultrasound estimated date of delivery is December,. heart motion is detected. Cervical length 4.7 cm and appears closed. Small nabothian cyst(s) in the lower uterine segment. The right ovary measures 3.1 x 2.5 x 3.9 cm and is grossly unremarkable. The left ovary measures 3.6 x 2.2 x 2.7 cm and is grossly unremarkable. Duplex Doppler shows appropriate blood flow in the bilateral ovaries. Multiple, serpiginous parametrial vessels noted bilaterally. No adnexal masses or significant free pelvic fluid. IMPRESSION: 1. Single, live intrauterine . Report Dictated on Electronically Signed By: Dangelo Sadler MD Electronically Signed Date/Time: 05/02/2025 5:59 PM EDT [facility] Radiology Study observation (narrative) [facility] US Pelvis transvaginalOrdere d By: Dangelo Sadler on 05-02-2025 [facility] [employer] Work Phone: ED Provider Noteon ED Provider Note EMERGENCY DEPARTMENT ENCOUNTER Pt Name: Albaro Fitzpatrick Birthdate 1995 Date of evaluation: 05/01/2025 ED Provider: Lala Fischer MD CHIEF COMPLAINT Chief Complaint Patient presents with Hives HISTORY OF PRESENT ILLNESS (Location/Symptom, Timing/Onset, Context/Setting, Quality, Duration, Modifying Factors, Severity) Note limiting factors. I wore appropriate PPE for the entirety of this encounter. HPI Albaro Fitzpatrick is a 29 y.o. who presents to the emergency department with chief complaint of hives. States this started about 4 days ago and have progressed pretty diffusely over the extremities and torso. Denies any trouble breathing swallowing any facial swelling any vomiting abdominal pain any recent fever. She states she is approximately 8 weeks by LMP. Significant other states they did move into a new house recently. She states she has been using a different laundry detergent. She has also started taking Gummies which she has used in the past for . Denies any other medications or travel. Nursing Notes were reviewed. Limitations to history: None Outside historians: None REVIEW OF SYSTEMS Review of Systems Constitutional: Negative for fever. HENT: Negative for trouble swallowing and voice change. Respiratory: Negative for chest tightness and shortness of breath. Gastrointestinal: Negative for abdominal pain and vomiting. Skin: Positive for rash. Pertinent positives and negatives as per HPI. PAST MEDICAL HISTORY Medical History[1] SURGICAL HISTORY Surgical History[2] CURRENT MEDICATIONS Previous Medications No medications on file ALLERGIES Patient has no known allergies. FAMILY HISTORY Family History[3] SOCIAL HISTORY Social History[4] SCREENINGS PHYSICAL EXAM ED Triage Vitals [05/01/25 0530] Temp Heart Rate Resp BP 36.6 ?C (97.8 ?F) 89 16 124/67 SpO2 Temp Source Heart Rate Source Patient Position 100 % Oral Monitor Sitting BP Location FiO2 (%) Right arm -- Physical Exam Vitals and nursing note reviewed. Constitutional: General: She is not in acute distress. Appearance: She is well-developed. She is not ill-appearing or diaphoretic. HENT: Head: Normocephalic and atraumatic. Jaw: No trismus. Mouth/Throat: Mouth: Mucous membranes are moist. No angioedema. Pharynx: Oropharynx is clear. Comments: No swelling to the oropharynx Eyes: Extraocular Movements: Extraocular movements intact. Conjunctiva/sclera: Conjunctivae normal. Pupils: Pupils are equal, round, and reactive to light. Cardiovascular: Rate and Rhythm: Normal rate and regular rhythm. Heart sounds: No murmur heard. Pulmonary: Effort: Pulmonary effort is normal. No respiratory distress. Breath sounds: Normal breath sounds. Abdominal: Palpations: Abdomen is soft. Tenderness: There is no abdominal tenderness. Musculoskeletal: General: No swelling. Cervical back: Normal range of motion and neck supple. No rigidity or tenderness. Right lower leg: No edema. Left lower leg: No edema. Lymphadenopathy: Cervical: No cervical adenopathy. Skin: General: Skin is warm and dry. Capillary Refill: Capillary refill takes less than 2 seconds. Findings: Rash present. Comments: Diffuse hives that are blanching noted to the extremities and torso, no involvement of the mucous membranes or palms or soles, no target lesions no vesicles no cellulitis no skin sloughing or blistering Neurological: General: No focal deficit present. Mental Status: She is alert. Psychiatric: Mood and Affect: Mood normal. Thought Content: Thought content normal. DIAGNOSTIC RESULTS Procedures/EKG: EKG was reviewed by myself. [facility] RAD[facility]OLOGY (Per Emergency Physician): Interpretation per the Radiologist below, if available at the time of this note: No orders to display ED BEDSIDE ULTRASOUND: Performed by ED Physician - none LABS: Labs Reviewed - No data to display All other labs were within normal range or not returned as of this dictation. EMERGENCY DEPARTMENT COURSE and DIFFERENTIAL DIAGNOSIS/MDM: Vitals: Vitals: 05/01/25 0530 BP: 124/67 BP Location: Right arm Patient Position: Sitting Pulse: 89 Resp: 16 Temp: 36.6 ?C (97.8 ?F) TempSrc: Oral SpO2: 100% Weight: 65.8 kg (145 lb) Height: 1.727 m (5' 8) 29-year-old female here with hives. Differential allergic reaction, hives in (less likely PUPPP given first trimester), no evidence for angioedema or anaphylaxis or systemic infection. Appears well clinically otherwise with stable vital signs. She has already tried Benadryl. One-time Decadron and Pepcid given here. I spoke with Dr. Argueta with OB who states Decadron is reasonable and a Medrol Dosepak for home with benefits outweigh the risks during first trimester. Instructed her to continue Benadryl and also take [id number] Pepcid (more content not included)... Normal [facility] BACTERIAL VAGINOSIS NAATon 0 11-25-2023 Interpretation and review of laboratory results Abnormal [facility] Lactobacillus crispatus+gasseri+mario alberto enii + Gardnerella vaginalis + Atopobium vaginae rRNA NATASHA+probe Ql (Vag fld) Positive Abnormal Negative for bacterial vaginosis [facility] C. trachomatis+N. gonorrhoea e DNA NATASHA+probe Ql (Unsp spec)on 11-25-2023 C. trachomatis rRNA NATASHA+probe Ql (Unsp spec) Negative Negative for Chlamydia trachomatis by amplificaton [facility] Interpretation and review of laboratory results Normal [facility] N. gonorrhoeae rRNA NATASHA+probe Ql (Unsp spec) Negative Negative for Neisseria gonorrhoeae by amplification [facility] LAURIE/TRICHOMONAS NAATon 0 11-25-2023 C. glabrata RNA NATASHA+probe Ql (Vag fld) Negative Negative for Laurie glabrata [facility] Laurie sp DNA NATASHA+probe Ql (Vag fld) Negative Negative for Laurie species [facility] Interpretation and review of laboratory results Normal [facility] T. vaginalis DNA NATASHA+probe Ql (Unsp spec) Negative Negative for Trichomonas vaginalis by amplification [facility] CNPNon 11-25-2023 [facility] ALBARO FITZPATRICK ([id number]) 1995 F Date Time Provider Department 11/25/23 MARK ROMERO [facility] During your visit today, we recorded the following information about you: Mark Romero PA 11/25/2023 10:03 AM Signed Herpes is negative. Reema Gaxiola LPN 11/25/2023 11:28 AM Signed Left message for patient to return call for results.HOSSEIN Aranda Brandi, LPN 11/26/2023 8:29 AM Signed Pt viewed results on CoverMe. Aldo Devine LPN Allergies As of Date: 11/25/2023 (No Known Allergies) Date Reviewed: 11/24/2023 Reviewed by: Reema Gaxiola LPN - Fully Assessed Reason for Visit: Results [95] Prescriptions as of 11/26/2023 - metroNIDAZOLE (FLAGYL) 500 mg tablet Take 1 tablet by mouth two times a day for 7 days. - PNV no.95/ferrous fum/folic ac ( ORAL) Take by mouth once daily. Problem List As Of Date 11/25/2023 Noted Resolved Enlarged thyroid [E04.9] 10/18/2021 06/05/2022 Multiple thyroid nodules [E04.2] 10/18/2021 Polysubstance abuse (HCC) [F19.10] 12/11/2021 Depression [F32.A] 12/11/2021 Anxiety [F41.9] 12/11/2021 Bipolar 1 disorder (HCC) [F31.9] 12/11/2021 Schizoaffective disorder (HCC) [F25.9] 12/11/2021 Acute hepatitis C virus infection without hepat*06/08/2022 Encounter Status:Closed by ALDO DEVINE [facility] ALBARO FITZPATRICK ([id number]) 1995 F Date Time Provider Department 11/25/23 [facility] ROMERO [facility] During your visit today, we recorded the following information about you: Sruthi Chan LPN 11/25/2023 8:21 AM Signed Patient calling to request a work excuse for her appt yesterday. Asking if it can be uploaded to [employer]. Please advise. Mark Romero PA 11/25/2023 8:26 AM Signed Work note placed in [place] Jessica Abreu MA 11/25/2023 8:35 AM Signed Pt was notified of the results. Pt verbalized understanding. Jessica Abreu MA Allergies As of Date: 11/25/2023 (No Known Allergies) Date Reviewed: 11/24/2023 Reviewed by: Reema Gaxiola LPN - Fully Assessed Reason for Visit: work excuse [Other] Prescriptions as of 11/25/2023 - metroNIDAZOLE (FLAGYL) 500 mg tablet Take 1 tablet by mouth two times a day for 7 days. - PNV no.95/ferrous fum/folic ac ( ORAL) Take by mouth once daily. Problem List As Of Date 11/25/2023 Noted Resolved Enlarged thyroid [E04.9] 10/18/2021 06/05/2022 Multiple thyroid nodules [E04.2] 10/18/2021 Polysubstance abuse (HCC) [F19.10] 12/11/2021 Depression [F32.A] 12/11/2021 Anxiety [F41.9] 12/11/2021 Bipolar 1 disorder (HCC) [F31.9] 12/11/2021 Schizoaffective disorder (HCC) [F25.9] 12/11/2021 Acute hepatitis C virus infection without hepat*06/08/2022 Letter Text Encounter Status:Closed by JESSICA ABREU on 11/25/23 [facility] Telephone ([facility]) ---- ALBARO FITZPATRICK ([id number]) 1995 F Date Time Provider Department 11/25/23 [facility] During your visit today, we recorded the following information about you: Mark Romero PA 11/25/2023 7:11 AM Signed Please call patient and let her know she tested positive for bacterial vaginosis. Metronidazole has been sent to [facility] for her. Take this as prescribed. Do not drink alcohol taking this medication. Gonorrhea/chlamydia , yeast and trichomonas were all negative. We are still awaiting the herpes result. We will contact her once this result returns. Jessica Abreu MA 11/25/2023 8:34 AM Signed Pt was notified of the results. Pt verbalized understanding. Jessica Abreu MA Allergies As of Date: 11/25/2023 (No Known Allergies) Date Reviewed: 11/24/2023 Reviewed by: Reema Gaxiola LPN - Fully Assessed Reason for Visit: Results [95] Order(s):metroNIDAZ OLE (FLAGYL) 500 mg tabletTake 1 tablet by mouth two times a day for 7 days.Disp: 14 tabletRfl: 0 Prescriptions as of 11/25/2023 - metroNIDAZOLE (FLAGYL) 500 mg tablet Take 1 tablet by mouth two times a day for 7 days. - PNV no.95/ferrous fum/folic ac ( ORAL) Take by mouth once daily. Problem List As Of Date 11/25/2023 Noted Resolved Enlarged thyroid [E04.9] 10/18/2021 06/05/2022 Multiple thyroid nodules [E04.2] 10/18/2021 Polysubstance abuse (HCC) [F19.10] 12/11/2021 Depression [F32.A] 12/11/2021 Anxiety [F41.9] 12/11/2021 Bipolar 1 disorder (HCC) [F31.9] 12/11/2021 Schizoaffective disorder (HCC) [F25.9] 12/11/2021 Acute hepatitis C virus infection without hepat*06/08/2022 Prescriptions ordered this encounter Disp Refills Start End METRONIDAZOLE 500 MG TABLET 14 t* 0 11/25/2023 12/02/2023 Route: ORAL Sig: Take 1 tablet by mouth two times a day for 7 days. Encounter Status:Closed by JESSICA ABREU on 11/25/23 [facility] BACTERIAL VAGINOSIS NAATon 0 11-24-2023 Lactobacillus crispatus+gasseri+mario alberto enii + Gardnerella vaginalis + Atopobium vaginae rRNA NATASHA+probe Ql (Vag fld) Positive Abnormal Negative for bacterial vaginosis [facility] Comment on above: Order Comment: Speci men Type: SWABOrdering Facility: [facility] Address: [address] [place] [address] Performed By: #### 3 6902-5, BVAMP ####[facility] LABCLIA [id number] [place] [address] [place] Bacteria Ur Culton Bacteria identified Cx Nom (U) ORGANISM ID: 1 <10,000 CFU/ml Normal urogenital caleb Normal [facility] Comment on above: Performed By: #### 6 30-4 ####[facility] LABCLIA [id number] [place] [address] [place] C. trachomatis+N. gonorrhoea e DNA NATASHA+probe Ql (Unsp spec)on 11-24-2023 C. trachomatis rRNA NATASHA+probe Ql (Unsp spec) Negative Normal Negative for Chlamydia trachomatis by amplificaton [facility] Comment on above: Order Comment: Speci men Type: SWABOrdering Facility: [facility] Address: [address] [place] [address] Performed By: #### 3 6902-5, BVAMP ####[facility] LABCLIA [id number] [place] [address] [place] N. gonorrhoeae rRNA NATASHA+probe Ql (Unsp spec) Negative Normal Negative for Neisseria gonorrhoeae by amplification [facility] Comment on above: Order Comment: Speci men Type: SWABOrdering Facility: [facility] Address: [address] [place] [address] Performed By: #### 3 6902-5, BVAMP ####[facility] LABCLIA [id number] [place] [address] [place] LAURIE/TRICHOMONAS NAATon 0 11-24-2023 C. glabrata RNA NATASHA+probe Ql (Vag fld) Negative Normal Negative for Laurie glabrata [facility] Comment on above: Order Comment: Speci men Type: SWABOrdering Facility: [facility] Address: [address] [place] [address] Performed By: #### C VTV ####[facility] LABCLIA [id number] [address] [place] Laurie sp DNA NATASHA+probe Ql (Vag fld) Negative Normal Negative for Laurie species [facility] Comment on above: Order Comment: Speci men Type: SWABOrdering Facility: [facility] Address: [address] [place] [address] Performed By: #### C VTV ####[facility] LABCLIA [id number] [address] [place] T. vaginalis DNA NATASHA+probe Ql (Unsp spec) Negative Normal Negative for Trichomonas vaginalis by amplification [facility] Comment on above: Order Comment: Speci men Type: SWABOrdering Facility: [facility] Address: [address] [place] [address] Performed By: #### C VTV ####[facility] LABCLIA [id number] [address] [place] CNOVon 11-24-2023 CNOV Office Visit ([facility]) ---- ALBARO FITZPATRICK ([id number]) 1995 F Date Time Provider Department 11/24/23 2:15 PM MARK ROMERO [facility] During your visit today, we recorded the following information about you: Temperature Pulse Respiration Blood pressure 98.4 degrees 77/minute 18/minute 110/72 Weight 54.1 kg Mark Romero PA 11/24/2023 2:22 PM Signed This note was created using DFine. Subjective Albaro Fitzpatrick is a 28 year old female. HPI 28-year-old female presents for burning with urination. Patient states that she has burning with urination and irritation/burning on the outside of her vaginal area. She states that she felt a small bump on the vaginal area. She reports that the bump is painful. No history of herpes in the past. She denies any concern for . No concern for STD. No abnormal vaginal discharge. No abdominal pain or pelvic pain. No hematuria. No back pain. No vomiting or fevers. No other complaint. PAST MEDICAL HISTORY Diagnosis Date Acute hepatitis C virus infection without hepatic coma 06/08/2022 Anxiety Bipolar 1 disorder (HCC) Depression Multiple thyroid nodules 10/18/2021 10/18/21: Needs repeat ultrasound annually for the next 5 years Polysubstance abuse (HCC) PTSD (post-traumatic stress disorder) Schizoaffective disorder (HCC) PAST SURGICAL HISTORY Procedure Laterality Date SECTION HX 02/12/2017 X 2; 07/18/2015 TONSILLECTOMY AND ADENOIDECTOMY ALLERGIES Patient has no known allergies. MEDICATIONS PNV no.95/ferrous fum/folic ac ( ORAL) Take by mouth once daily. (Patient not taking: Reported on 11/24/2023) FAMILY HISTORY Problem Relation Age of Onset Thyroid Cancer Mother Heart Mother hole in heart congenital Bipolar disorder Mother Hypertension Father Mental illness Brother No Known Problems Brother No Known Problems Brother No Known Problems Brother No Known Problems Maternal Grandmother Heart Maternal Grandfather Cancer Paternal Grandmother No Known Problems Paternal Grandfather No Known Problems Son No Known Problems Daughter Social History Tobacco Use Smoking status: Every Day Packs/day: 1.00 Years: 10.00 Additional pack years: 0.00 Total pack years: 10.00 Types: Cigarettes Smokeless tobacco: Never Tobacco comments: 09/01/23-down to 5 cigarettes a day Vaping Use Vaping Use: Former Substances: Nicotine Substance Use Topics Alcohol use: Not Currently Comment: Recovery Drug use: Not Currently Types: Heroin, Amphetamines Comment: clean since December 2019 Review of Systems Constitutional: Negative for chills and fever. HENT: Negative for congestion, ear pain and sore throat. Respiratory: Negative for cough and shortness of breath. Cardiovascular: Negative for chest pain. Gastrointestinal: Negative for abdominal pain, diarrhea and vomiting. Genitourinary: Positive for dysuria. Negative for hematuria, pelvic pain, vaginal bleeding, vaginal discharge and vaginal pain. Skin: Positive for wound. Objective BP 110/72 Pulse 77 Temp 36.9 ?C (98.4 ?F) (Tympanic) Resp 18 Wt 54.1 kg (119 lb 4.3 oz) LMP 05/29/2022 (Exact Date) SpO2 99% BMI 18.35 kg/m? Physical Exam Vitals and nursing note reviewed. Exam conducted with a metal rolling mill operator present. Constitutional: General: She is not in acute distress. Appearance: Normal appearance. She is not toxic-appearing. HENT: Nose: Nose normal. Mouth/Throat: Mouth: Mucous membranes are moist. Eyes: Conjunctiva/sclera: Conjunctivae normal. Cardiovascular: Rate and Rhythm: Normal rate and regular rhythm. Pulmonary: Effort: Pulmonary effort is normal. Breath sounds: Normal breath sounds. Abdominal: General: Abdomen is flat. Palpations: Abdomen is soft. Tenderness: There is no abdominal tenderness. There is no guarding. Genitourinary: Exam position: Lithotomy position. Labia: Left: Tenderness and lesion present. Vagina: Vaginal discharge present. Cervix: Discharge present. Adnexa: Right: No tenderness. Left: No tenderness. Comments: Small erythematous lesion noted to left labia minora. Tender to touch. Does not appear vesicular in nature. Appears like a healing wound/scab. Internal exam reveals white discharge from cervix and in vaginal vault. No CMT. No adnexal tenderness. Skin: General: Skin is warm and dry. Neurological: Mental Status: She is alert. Assessment and Plan ASSESSMENT/PLAN: 1. Burning with urination - ICD9: 788.1, ICD10: R30.0 (primary diagnosis) Acute -UA negative. - Send urine for culture - Patient education for prevention given - UA DIP, URINE (POC) - URINE CULTURE - GONORRHEA/CHLAMYDIA NAAT - LAURIE/TRICHOMONAS NAAT - BACTERIAL VAGINOSIS NAAT 2. Vaginal lesion - ICD9: 623.8, ICD10: N89.8 - HSV1,2/VZV NAAT LESION - GONORRHEA/CHLAMYDIA NAAT - LAURIE/TRICHOMONAS NATASHA (more content not included)... Normal [facility] HSV+VZV DNA NATASHA+probe Ql (Un sp spec)on 11-24-2023 HSV 1 DNA NATASHA+probe Ql (Unsp spec) Not detected Normal Not Detected [facility] Comment on above: Order Comment: Speci men Type: SWABOrdering Facility: [facility] Address: [address] [place] [address] Performed By: #### 3 3027-4 ####[facility] LABCLIA [id number] [place] [address] [place] HSV 2 DNA NATASHA+probe Ql (Unsp spec) Not detected Normal Not Detected [facility] Comment on above: Order Comment: Speci men Type: SWABOrdering Facility: [facility] Address: [address] [place] [address] Performed By: #### 3 3027-4 ####[facility] LABCLIA [id number] [place] [address] [place] VZV DNA NATASHA+probe Ql (Unsp spec) Not detected Normal Not Detected [facility] Comment on above: Order Comment: Speci men Type: SWABOrdering Facility: [facility] Address: [address] [place] [address] Performed By: #### 3 3027-4 ####[facility] LABCLIA [id number] [place] [address] [place] UA DIP, URINE (POC)on 2023 BILIRUBIN UA (POCT) Negative Negative [facility] CLARITY UA (POCT) Clear [facility] COLOR UA (POCT) Yellow [facility] GLUCOSE UA (POCT) Negative Negative mg/dL [facility] Hemoglobin Ql (U) Negative Negative [facility] KETONE UA (POCT) Negative Negative mg/dL [facility] LEUKOCYTES UA (POCT) Negative Negative [facility] NITRITE UA (POCT) Negative Negative [facility] PH UA (POCT) 7.0 4.5 - 8.0 [facility] Protein Ql (U) Negative Negative mg/dL [facility] SPECIFIC GRAVITY UA (POCT) 1.010 1.005 - 1.030 [facility] UROBILINOGEN UA (POCT) 0.2 Normal E.U./d L [facility] Location:[facility], [address] [place] [address], [place], [place], [id number] [place] [address] POINT OF CARE [facility] CNPNon 09-15-2023 CNPN Telephone ([facility]) ---- ALBARO FITZPATRICK ([id number]) 1995 F Date Time Provider Department 09/15/23 [facility] During your visit today, we recorded the following information about you: Cory Ruff LPN 09/15/2023 3:16 PM Signed Please schedule patient for BRAND MARKETING COORDINATOR VV with Arlyn on 09/30/2023 at 1:00 pm for 60 minutes. Patient is aware of date and time, will need financial clearance. Referred by PCP. Rama Velasco 09/16/2023 8:45 AM Signed Referral placed, waiting for clearance Essence Buck 09/21/2023 10:16 AM Signed Still pending review Essence Buck 09/24/2023 8:44 AM Signed We are still waiting to hear back from the insurance company-Referral status is submitted to carrier Essence Buck 09/28/2023 9:27 AM Signed This is still being reviewed by her insurance. Allergies As of Date: 09/15/2023 (No Known Allergies) Date Reviewed: 09/01/2023 Reviewed by: January Castañeda, SENIOR UI UX DESIGNER.LOG ROPER - Fully Assessed Reason for Visit: Appointment [186] Prescriptions as of 09/30/2023 - PNV no.95/ferrous fum/folic ac ( ORAL) Take by mouth once daily. Problem List As Of Date 09/15/2023 Noted Resolved Enlarged thyroid [E04.9] 10/18/2021 06/05/2022 Multiple thyroid nodules [E04.2] 10/18/2021 Polysubstance abuse (HCC) [F19.10] 12/11/2021 Depression [F32.A] 12/11/2021 Anxiety [F41.9] 12/11/2021 Bipolar 1 disorder (HCC) [F31.9] 12/11/2021 Schizoaffective disorder (HCC) [F25.9] 12/11/2021 Acute hepatitis C virus infection without hepat*06/08/2022 Encounter Status:Closed by CORY RUFF on 09/30/23 [facility] David 09-02-2023 CNPN Telephone ([facility]) ---- ALBARO FITZPATRICK ([id number]) 1995 F Date Time Provider Department 09/02/23 ADINA DUGGAN During your visit today, we recorded the following information about you: Adina Duggan LPCC 09/02/2023 10:53 AM Signed Behavioral Health Social Work Progress Note Patient identified for [facility] from: PCP Reason for referral: [facility] Assessment Behavioral Health Resources: Psychiatry med management [facility] encounter type: Telephone Encounter Attempts to Outreach: 1 attempt Referral made: Psychiatry - Internal Psychiatry-Internal referral type: Medication Management Final Disposition: Care established with Patient Discharged?: No Patient reported that caregiver was able to meet their needs today?: Yes therapist contact patient to discuss behavioral health services with patient. Scheduled [facility] assessment with patient for 09/15 at 2:00 pm RUPESH Medina-S September 02, 2023 Allergies As of Date: 09/02/2023 (No Known Allergies) Date Reviewed: 09/01/2023 Reviewed by: January Castañeda, SENIOR UI UX DESIGNER.LOG ROPER - Fully Assessed Reason for Visit: consult [Other] Prescriptions as of 09/02/2023 - PNV no.95/ferrous fum/folic ac ( ORAL) Take by mouth once daily. Problem List As Of Date 09/02/2023 Noted Resolved Enlarged thyroid [E04.9] 10/18/2021 06/05/2022 Multiple thyroid nodules [E04.2] 10/18/2021 Polysubstance abuse (HCC) [F19.10] 12/11/2021 Depression [F32.A] 12/11/2021 Anxiety [F41.9] 12/11/2021 Bipolar 1 disorder (HCC) [F31.9] 12/11/2021 Schizoaffective disorder (HCC) [F25.9] 12/11/2021 Acute hepatitis C virus infection without hepat*06/08/2022 Encounter Status:Closed by [facility] ALBARO FITZPATRICK ([id number]) 1995 F Date Time Provider Department 09/02/23 ADINA DUGGAN During your visit today, we recorded the following information about you: Yaritza Hernandez 09/02/2023 12:44 PM Signed ----- Message from Adina Duggan [facility] sent at 09/02/2023 10:56 AM EST ----- Regarding: Appointment Hello, Could you please schedule this patient for an initial virtual appointment with me on 09/15 at 2:00 pm Thank you, Yaritza Cyr 09/02/2023 12:54 PM Signed Unable to schedule patient, patient has OON insurance. Called and spoke to patient and informed her that she would need to be cleared before we can schedule appointment. Patient has phone call with PFA's on Thursday. Will check referral on Thursday after patient talks to PFA. Will schedule appointment when/if patient is cleared. Rosemary Kay 09/07/2023 7:34 AM Signed Patient scheduled. Thanks Rosemary Kay Allergies As of Date: 09/02/2023 (No Known Allergies) Date Reviewed: 09/01/2023 Reviewed by: January Castañeda APRN.LOG ROPER - Fully Assessed Prescriptions as of 09/07/2023 - PNV no.95/ferrous fum/folic ac ( ORAL) Take by mouth once daily. Problem List As Of Date 09/02/2023 Noted Resolved Enlarged thyroid [E04.9] 10/18/2021 06/05/2022 Multiple thyroid nodules [E04.2] 10/18/2021 Polysubstance abuse (HCC) [F19.10] 12/11/2021 Depression [F32.A] 12/11/2021 Anxiety [F41.9] 12/11/2021 Bipolar 1 disorder (HCC) [F31.9] 12/11/2021 Schizoaffective disorder (HCC) [F25.9] 12/11/2021 Acute hepatitis C virus infection without hepat*06/08/2022 Encounter Status:Closed by YARITZA HERNANDEZ on 09/02/23 Normal [facility] Reagin and Treponema pallidu m IgG and IgM [Interp]on 09-02-2023 T. pallidum IgG+IgM IA Ql (S) Non-Reactive Nonreactive [facility] SYPHILIS TOTAL W/REFLEXon Reagin and Treponema pallidum IgG and IgM [Interp] Cannot exclude recent Treponemal infection if specimen collected within 7-10 days after appearance of suspect lesions or 2-3 weeks after an exposure. Clinical correlation is required. [facility] 25(OH)D3 SerPl-mCncon 2023 25-hydroxyvitamin D3 [Mass/Vol] 40.3 ng/mL Normal 31.0-80.0 [facility] Comment on above: Order Comment: Speci men Type: BLOOD SPECIMENOrdering Facility: [facility] Address: [address] [place] [address] [place] [address] Result Comment: Clas sification of 25 [place] Vitamin D status: Deficiency/Insufficiency: < or = 30 ng/ml. Sufficiency/Optimal Levels: 31-80 ng/mL Toxicity: > 100 ng/mL. Test performed by chemiluminescent immunoassay. Performed By: #### 1 989-3 ####[facility] LABIA [id number] [address] STATES OF [facility] CBC panel Auto (Bld)on 09-01 Erythrocyte distribution width (RBC) [Ratio] 13.4 % 11.5 - 15.0 % [facility] Hematocrit (Bld) [Volume fraction] 41.2 % 36.0 - 46.0 % [facility] Hemoglobin (Bld) [Mass/Vol] 14.3 g/dL 11.5 - 15.5 g/dL [facility] MCH (RBC) [Entitic mass] 32.6 pg 26.0 - 34.0 pg [facility] MCHC (RBC) [Mass/Vol] 34.7 g/dL 30.5 - 36.0 g/ dL [facility] MCV (RBC) [Entitic vol] 93.8 fL 80.0 - 100.0 fL [facility] Nucleated RBC (Bld) [#/Vol] <0.01 k/uL [facility] Platelet mean volume (Bld) [Entitic vol] 11.2 fL 9.0 - 12.7 fL [facility] Platelets (Bld) [#/Vol] 204 10*3/uL 150 - 400 k/uL [facility] RBC (Bld) [#/Vol] 4.39 10*6/uL 3.90 - 5.20 m/uL [facility] WBC (Bld) [#/Vol] 10.82 10*3/uL 3.70 - 11 .00 k/uL [facility] Erythrocyte distribution width (RBC) [Ratio] 13.4 % Normal 11.5-15.0 [facility] Comment on above: Order Comment: Speci men Type: BLOOD SPECIMENOrdering Facility: [facility] Address: [address] [place] [address] Performed By: #### 5 8410-2 ####[facility] LABCLIA [id number] [address] [id number] [address] [place] Hematocrit (Bld) [Volume fraction] 41.2 % Normal 36.0-46.0 [facility] Comment on above: Order Comment: Speci men Type: BLOOD SPECIMENOrdering Facility: [facility] Address: [address] [place] [address] Performed By: #### 5 8410-2 ####[facility] LABCLIA [id number] [place] [address] [place] Hemoglobin (Bld) [Mass/Vol] 14.3 g/dL Normal 11.5-15.5 [facility] Comment on above: Order Comment: Speci men Type: BLOOD SPECIMENOrdering Facility: [facility] Address: [address] [place] [address] Performed By: #### 5 8410-2 ####[facility] LABCLIA [id number] [place] [address] [place] MCH (RBC) [Entitic mass] 32.6 pg Normal 26.0-34.0 [facility] Comment on above: Order Comment: Speci men Type: BLOOD SPECIMENOrdering Facility: [facility] Address: [address] [place] [address] Performed By: #### 5 8410-2 ####[facility] LABIA [id number] [place] [address] [place] MCHC (RBC) [Mass/Vol] 34.7 g/dL Normal 30.5-36.0 [facility] Comment on above: Order Comment: Speci men Type: BLOOD SPECIMENOrdering Facility: [facility] Address: [address] [place] [address] Performed By: #### 5 8410-2 ####[facility] LABCLIA [id number] [place] [address] [place] MCV (RBC) [Entitic vol] 93.8 fL Normal 80.0-100.0 [facility] Comment on above: Order Comment: Speci men Type: BLOOD SPECIMENOrdering Facility: [facility] Address: [address] [place] [address] Performed By: #### 5 8410-2 ####[facility] LABCLIA [id number] [place] [address] [place] Nucleated RBC (Bld) [#/Vol] 10*3/uL Normal <0.01 [facility] Comment on above: Order Comment: Speci men Type: BLOOD SPECIMENOrdering Facility: [facility] Address: [address] [place] [address] Performed By: #### 5 8410-2 ####[facility] LABCLIA [id number] [place] [address] [place] Platelet mean volume (Bld) [Entitic vol] 11.2 fL Normal 9.0-12.7 [facility] Comment on above: Order Comment: Speci men Type: BLOOD SPECIMENOrdering Facility: [facility] Address: [address] [place] [address] Performed By: #### 5 8410-2 ####[facility] LABCLIA [id number] [place] [address] [place] Platelets (Bld) [#/Vol] 204 10*3/uL Normal 150-400 [facility] Comment on above: Order Comment: Speci men Type: BLOOD SPECIMENOrdering Facility: [facility] Address: [address] [place] [address] Performed By: #### 5 8410-2 ####[facility] LABCLIA [id number] [place] [address] [place] RBC (Bld) [#/Vol] 4.39 10*6/uL Normal 3.90-5.20 [facility] Comment on above: Order Comment: Speci men Type: BLOOD SPECIMENOrdering Facility: [facility] Address: [address] [place] [address] Performed By: #### 5 8410-2 ####[facility] LABCLIA [id number] [place] [id number] [place] WBC (Bld) [#/Vol] 10.82 10*3/uL Normal 3.70-11.00 [facility] Comment on above: Order Comment: Speci men Type: BLOOD SPECIMENOrdering Facility: [facility] Address: [address] [place] [address] Performed By: #### 5 8410-2 ####[facility] LABCLIA [id number] [place] [id number] [place] CNOVon 09-01-2023 CNOV Office Visit (INTMWS) ---- ALBARO FITZPATRICK ([id number]) 1995 F Date Time Provider Department 09/01/23 2:40 PM JANUARY CASTAÑEDA INTMWS During your visit today, we recorded the following information about you: Pulse Respiration Blood pressure Weight 94/minute 18/minute 122/66 54.4 kg 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 Patient reports her weight is 108 pounds on her scale at home however today in the office she weighed 120 lbs. She is still concerned that she is underweight and can't seem to gain no matter what she does. Also reports chronic fatigue for the past couple years. She was treated for Hepatitis C in 2021 and repeat testing February 2023 was negative. She does admit to unprotected sexual intercourse since then. Denies chance of . History of IV drug abuse but has been clean since 2019. Denies alcohol use. Smokes about 5 cigarettes a day. She has bipolar 1 disorder, schizoaffective disorder and depression that is not treated. She is currently in counseling however admits to often feeling depressed and anxious. Denies SI or HI. She has been to multiple psychiatrists along with inpatient admissions in the past and on numerous medications that either were ineffective or had too many side effects. Psychiatrists were constantly changing her medications and this made her feel like a guinea pig so she eventually gave up on treatment. Review of Systems Constitutional: Negative for appetite change, chills, diaphoresis and fever. Respiratory: Negative for cough, shortness of breath and wheezing. Cardiovascular: Negative for chest pain, palpitations and leg swelling. Gastrointestinal: Negative for abdominal pain, blood in stool, constipation, diarrhea, nausea and vomiting. Endocrine: Positive for cold intolerance. Negative for heat intolerance, polydipsia, polyphagia and polyuria. Musculoskeletal: Negative for arthralgias, joint swelling and myalgias. Skin: Negative for rash. Neurological: Negative for dizziness, tremors, syncope, weakness, light-headedness, numbness and headaches. Hematological: Negative for adenopathy. Does not bruise/bleed easily. Psychiatric/Behavio ral: Positive for decreased concentration, dysphoric mood and sleep disturbance. Negative for hallucinations, self-injury and suicidal ideas. The patient is nervous/anxious and is hyperactive. PAST MEDICAL HISTORY Diagnosis Date Acute hepatitis C virus infection without hepatic coma 06/08/2022 Anxiety Bipolar 1 disorder (HCC) Depression Multiple thyroid nodules 10/18/2021 10/18/21: Needs repeat ultrasound annually for the next 5 years Polysubstance abuse (HCC) PTSD (post-traumatic stress disorder) Schizoaffective disorder (HCC) PAST SURGICAL HISTORY Procedure Laterality Date SECTION HX 02/12/2017 X 2; 07/18/2015 TONSILLECTOMY AND ADENOIDECTOMY ALLERGIES Patient has no known allergies. MEDICATIONS PNV no.95/ferrous fum/folic ac ( ORAL) Take by mouth once daily. FAMILY HISTORY Problem Relation Age of Onset Thyroid Cancer Mother Heart Mother hole in heart congenital Bipolar disorder Mother Hypertension Father Mental illness Brother No Known Problems Brother No Known Problems Brother No Known Problems Brother No Known Problems Maternal Grandmother Heart Maternal Grandfather Cancer Paternal Grandmother No Known Problems Paternal Grandfather No Known Problems Son No Known Problems Daughter Social History Tobacco Use Smoking status: Never Smokeless tobacco: Never Vaping Use Vaping Use: Some days Substances: Nicotine Substance Use Topics Alcohol use: Not Currently Comment: Recovery Drug use: Not Currently Types: Heroin, Amphetamines Comment: clean since December 2019 BP 122/66 Pulse 94 Resp 18 Wt 54.4 kg (120 lb) LMP 05/29/2022 (Exact Date) SpO2 98% BMI 18.46 kg/m? Physical Exam Vitals reviewed. Constitutional: Appearance: She is underweight. She is not ill-appearing or toxic-appearing. Eyes: Conjunctiva/sclera: Conjunctivae normal. Neck: Thyroid: No thyroid mass, thyromegaly or thyroid tenderness. Cardiovascular: Rate and Rhythm: Normal rate and regular rhythm. Pulses: Normal pulses. Heart sounds: Normal heart sounds. No murmur heard. Pulmonary: Effort: Pulmonary effort is normal. Breath sounds: Normal breath sounds and air entry. No wheezing, rhonchi or rales. Abdominal: General: There is no distension. Palpations: Abdomen is soft. There is no hepatomegaly, splenomegaly or mass. Tenderness: There is no abdominal tenderness. Musculoskeletal: Right lower leg: No edema. Left lower leg: No edema. Lymphadenopathy: Cervical: No cervical adenopathy. Upper Body: Right upper body: No sup (more content not included)... Normal [facility] Comprehensive metabolic 2000 panelon 09-01-2023 Albumin [Mass/Vol] 4.8 g/dL 3.9 - 4.9 g/dL [facility] ALP [Catalytic activity/Vol] 64 U/L 34 - 123 U/L [facility] ALT [Catalytic activity/Vol] 11 U/L 7 - 38 U/L [facility] Anion gap [Moles/Vol] 10 mmol/L 9 - 18 mmol/L [facility] AST [Catalytic activity/Vol] 22 U/L 13 - 35 U/L [facility] Bilirubin [Mass/Vol] 0.4 mg/dL 0.2 - 1.3 mg/dL [facility] Calcium [Mass/Vol] 9.6 mg/dL 8.5 - 10.2 mg/dL [facility] Chloride [Moles/Vol] 104 mmol/L 97 - 105 mmol/L [facility] CO2 [Moles/Vol] 26 mmol/L 22 - 30 mmol/L [facility] Creatinine [Mass/Vol] 0.60 mg/dL 0.58 - 0.96 mg/dL [facility] Estimated Glomerular Filtration Rate 126 mL/min/1.73m >=60 mL/min/1.73m [facility] Glucose [Mass/Vol] 103 mg/dL High 74 - 99 mg/dL [facility] Potassium [Moles/Vol] 3.6 mmol/L Low 3.7 - 5.1 mmol /L [facility] Protein [Mass/Vol] 7.5 g/dL 6.3 - 8.0 g/dL [facility] Sodium [Moles/Vol] 140 mmol/L 136 - 144 mmol/L [facility] Urea nitrogen [Mass/Vol] 8 mg/dL 7 - 21 mg/dL [facility] Albumin [Mass/Vol] 4.8 g/dL Normal 3.9-4.9 [facility] Comment on above: Order Comment: Speci men Type: BLOOD SPECIMENOrdering Facility: [facility] Address: [address] [place] [address] Performed By: #### 2 4323-8, 6-3 ####[facility] LABCLIA [id number] [place] [address] [place] ALP [Catalytic activity/Vol] 64 U/L Normal 34-123 [facility] Comment on above: Order Comment: Speci men Type: BLOOD SPECIMENOrdering Facility: [facility] Address: [address] [place] [address] Performed By: #### 2 4323-8, 6-3 ####[facility] LABCLIA [id number] [place] [address] [place] ALT [Catalytic activity/Vol] 11 U/L Normal 7-38 [facility] Comment on above: Order Comment: Speci men Type: BLOOD SPECIMENOrdering Facility: [facility] Address: [address] [place] [address] Performed By: #### 2 4323-8, 3016-3 ####[facility] LABCLIA [id number] [place] [address] [place] Anion gap [Moles/Vol] 10 mmol/L Normal 9-18 [facility] Comment on above: Order Comment: Speci men Type: BLOOD SPECIMENOrdering Facility: [facility] Address: [address] [place] [id number] Performed By: #### 2 4323-8, 3015-3 ####[facility] LABCLIA [id number] [place] [id number] [place] AST [Catalytic activity/Vol] 22 U/L Normal 13-35 [facility] Comment on above: Order Comment: Speci men Type: BLOOD SPECIMENOrdering Facility: [facility] Address: [address] [place] [place] [id number] Performed By: #### 2 4323-8, 3 ####[facility] LABCLIA [id number] [place] [address] [place] Bilirubin [Mass/Vol] 0.4 mg/dL Normal 0.2-1.3 [facility] Comment on above: Order Comment: Speci men Type: BLOOD SPECIMENOrdering Facility: [facility] Address: [address] [place], [place] [address] Performed By: #### 2 4323-8, 3 ####[facility] LABCLIA [id number] [place] [address] [place] Calcium [Mass/Vol] 9.6 mg/dL Normal 8.5-10.2 [facility] Comment on above: Order Comment: Speci men Type: BLOOD SPECIMENOrdering Facility: [facility] Address: [address] [place] [id number] Performed By: #### 2 4323-8, 3015-3 ####[facility] LABCLIA [id number] [place] [id number] [place] Chloride [Moles/Vol] 104 mmol/L Normal 97-105 [facility] Comment on above: Order Comment: Speci men Type: BLOOD SPECIMENOrdering Facility: [facility] Address: [address] [place], [place] [id number] Performed By: #### 2 4323-8, 6-3 ####[facility] LABCLIA [id number] [place] [address] [place] CO2 [Moles/Vol] 26 mmol/L Normal 22-30 [facility] Comment on above: Order Comment: Speci men Type: BLOOD SPECIMENOrdering Facility: [facility] Address: [address] [place] [address] Performed By: #### 2 4323-8, 3015-3 ####[facility] LABIA [id number] [place] [address] [place] Creatinine [Mass/Vol] 0.60 mg/dL Normal 0.58-0.96 [facility] Comment on above: Order Comment: Speci men Type: BLOOD SPECIMENOrdering Facility: [facility] Address: [address] [place] [address] Performed By: #### 2 4323-8, 3015-3 ####[facility] LABIA [id number] [place] [address] [place] Creatinine and Glomerular filtration rate.predicted panel (S/P/Bld) 126 mL/min/1.73m??? Normal >=60 [facility] Comment on above: Order Comment: Speci men Type: BLOOD SPECIMENOrdering Facility: [facility] Address: [address] [place] [address] Result Comment: Valeri mated Glomerular Filtration Rate (eGFR) is calculated using the 2020 CKD-EPI creatinine equation. This equation utilizes serum creatinine, sex, and age as parameters. The creatinine assay has traceable calibration to isotope dilution-mass spectrometry. Refer to KDIGO guidelines for clinical interpretation. In patients with unstable renal function, e.g. those with acute kidney injury, the eGFR may not accurately reflect actual GFR. Performed By: #### 2 4323-8, 6-3 ####[facility] LABCLIA [id number] [place] [id number] [place] Glucose [Mass/Vol] 103 mg/dL High 74-99 [facility] Comment on above: Order Comment: Specmary ann chino Type: BLOOD SPECIMENOrdering Facility: [facility] Address: [address] [place] [address] Result Comment: The [place] Diabetes Association (ADA) provides guidance for cutoff values for fasting glucose and random glucose. The ADA defines fasting as no caloric intake for at least 8 hours. Fasting plasma glucose results between 100 to 125 mg/dL indicate increased risk for diabetes (prediabetes). Fasting plasma glucose results greater than or equal to 126 mg/dL meet the criteria for diagnosis of diabetes. In the absence of unequivocal hyperglycemia, results should be confirmed by repeat testing. In a patient with classic symptoms of hyperglycemia or hyperglycemic crisis, random plasma glucose results greater than or equal to 200 mg/dL meet the criteria for diagnosis of diabetes. Reference: Standards of Medical Care in Diabetes 2016, [place] Diabetes Association. Diabetes Care. 2016.39(Suppl 1). Performed By: #### 2 4323-8, 3015-3 ####[facility] LABCLIA [id number] [place] [address] [place] Potassium [Moles/Vol] 3.6 mmol/L Low 3.7-5.1 [facility] Comment on above: Order Comment: Emmy chino Type: BLOOD SPECIMENOrdering Facility: [facility] Address: [address] [place] [address] Performed By: #### 2 4323-8, 3015-3 ####[facility] LABCLIA [id number] [place] [address] [place] Protein [Mass/Vol] 7.5 g/dL Normal 6.3-8.0 [facility] Comment on above: Order Comment: Emmy chino Type: BLOOD SPECIMENOrdering Facility: [facility] Address: [address] [place] [address] Performed By: #### 2 4323-8, 6-3 ####[facility] LABCLIA [id number] [place] [address] [place] Sodium [Moles/Vol] 140 mmol/L Normal 136-144 [facility] Comment on above: Order Comment: Speci matti Type: BLOOD SPECIMENOrdering Facility: [facility] Address: [address] [place] [address] Performed By: #### 2 4323-8, 3016-3 ####[facility] LABCLIA [id number] [place] [address] [place] Urea nitrogen [Mass/Vol] 8 mg/dL Normal 7-21 [facility] Comment on above: Order Comment: Speci men Type: BLOOD SPECIMENOrdering Facility: [facility] Address: [address] [place] [address] Performed By: #### 2 4323-8, 3016-3 ####[facility] LABCLIA [id number] [place] [address] [place] HBV core Ab Ser Qlon 024 HBV core Ab Ql (S) Positive Abnormal Negative [facility] Comment on above: Order Comment: Specmary [facility] Type: BLOOD SPECIMENOrdering Facility: [facility] Address: [address] [place] [address] Result Comment: The result suggests either current or past infection with Hepatitis B virus. Non-specific reactivity may at times be seen with this test due to some underlying phenomena. Please correlate with HBsAg result and medical history. Performed By: #### 3 1201-7, 88984-2, 51034-8, 5195-3 ####[facility] LABCLIA [id number] [place] [address] [place] HBV surface Ab Ql (S)on 08-20 HBV surface Ab Qn (S) >1000.00 Normal [facility] Comment on above: Order Comment: Speci matti Type: BLOOD SPECIMENOrdering Facility: [facility] Address: [address] [place] [address] Result Comment: <8 m IU/mL: No serological evidence of immunity to Hepatitis B Virus. >/= 8 to <12 mIU/mL: No serological evidence of immunity to Hepatitis B Virus. >/= 12 mIU/mL: Consistent with serological evidence of immunity to Hepatitis B Virus. Performed By: #### 3 1201-7, 16522-5, 69172-1, 5-3 ####[facility] LABCLIA [id number] [place] [address] [place] HBV surface Ab Ser Qlon 08-20 HBV surface Ab Ql (S) Positive Normal [facility] Comment on above: Order Comment: Speci men Type: BLOOD SPECIMENOrdering Facility: [facility] Address: [address] [place] [address] Result Comment: Cons istent with serological evidence of immunity to Hepatitis B Virus. Performed By: #### 3 1201-7, 35818-7, 87735-3, 5-3 ####[facility] LABCLIA [id number] [place] [address] [place] HBV surface Ag Ser Qlon 08-20 HBV surface Ag Ql (S) Negative Normal Negative [facility] Comment on above: Order Comment: Speci men Type: BLOOD SPECIMENOrdering Facility: [facility] Address: [address] [place] [address] Performed By: #### 3 1201-7, 40022-9, 13980-8, 5195-3 ####[facility] LABCLIA [id number] [place] [address] [place] HCV Ab Ser Qlon 09-01-2023 HCV Ab Ql (S) Positive Abnormal Negative [facility] Comment on above: Order Comment: Speci men Type: BLOOD SPECIMENOrdering Facility: [facility] Address: [address] [place] [address] Performed By: #### 1 1011-4, 67250-7 ####[facility] LABCLIA [id number] [place] [address] [place] HCV RNA SerPl NATASHA+probe-aCnc on 09-01-2023 HCV RNA NATASHA+probe Qn Not detected Normal HCV RNA not detected by PCR. [facility] Comment on above: Order Comment: Speci men Type: BLOOD SPECIMENOrdering Facility: [facility] Address: [address] [place] [address] Performed By: #### 1 1011-4, 72168-6 ####[facility] LABIA [id number] [place] [address] [place] HIV 1+2 Ab IA Qlon 4 HIV 1 and 2 Ab IA.rapid Nom (S/P/Bld) Normal [facility] Comment on above: Order Comment: Speci men Type: BLOOD SPECIMENOrdering Facility: [facility] Address: [address] [place] [address] Result Comment: Test not indicated. Performed By: #### 3 1201-7, 23100-2, 89656-3, 5195-3 ####[facility] LABIA [id number] [place] [address] [place] HIV 1+2 Ab+HIV1 p24 Ag IA Ql Non-Reactive Normal Nonreactive [facility] Comment on above: Order Comment: Speci men Type: BLOOD SPECIMENOrdering Facility: [facility] Address: [address] [place] [address] Performed By: #### 3 1201-7, 66867-1, 20177-4, 5195-3 ####[facility] LABIA [id number] [place] [address] [place] HIV immunoassay testing algorithm interpretation (S/P/Bld) [Interp] Normal [facility] Comment on above: Order Comment: Speci men Type: BLOOD SPECIMENOrdering Facility: [facility] Address: [address] [place] [address] Result Comment: No e vidence of HIV-1 or HIV-2 infection. Should recent infection be suspected, repeat testing may be considered 2-3 weeks after this draw. [place] Rev. Code 3701.243(E): This information has been disclosed to you from confidential records protected from disclosure by state law. ???You shall make no further disclosure of this information without the specific, written, and informed release of the individual to whom it pertains or as otherwise permitted by state law. A general authorization for the release of medical or other information is not sufficient for the purpose of the release of HIV test results or diagnoses. Performed By: #### 3 1201-7, 15842-5, 27927-1, 5195-3 ####[facility] [id number] [place] [address] [place] Reagin and Treponema pallidu m IgG and IgM [Interp]on 09-01-2023 T. pallidum IgG+IgM IA Ql (S) Non-Reactive Normal Nonreactive [facility] Comment on above: Order Comment: Speci men Type: BLOOD SPECIMENOrdering Facility: [facility] Address: [address] [place] [address] Performed By: #### 7 3752-8 ####[facility] [id number] [place] [address] [place] Reagin+T pallidum IgG+IgM Se rPl-Impon 09-01-2023 Reagin and Treponema pallidum IgG and IgM [Interp] Cannot exclude recent Treponemal infection if specimen collected within 7-10 days after appearance of suspect lesions or 2-3 weeks after an exposure. Clinical correlation is required. Normal [facility] Comment on above: Order Comment: Speci men Type: BLOOD SPECIMENOrdering Facility: [facility] Address: [address] [place] [address] Performed By: #### 7 3752-8 ####[facility] [id number] [place] [address] [place] TSH BLDon 09-01-2023 TSH Qn 1.170 m[IU]/L 0.270 - 4.200 mIU/L [facility] TSH SerPl-aCncon 02-13-2024 TSH Qn 1.170 m[IU]/L Normal 0.270-4.200 [facility] Comment on above: Order Comment: Emmy chino Type: BLOOD SPECIMENOrdering Facility: [facility] Address: [address] [place] [address] Result Comment: If t he patient is , TSH reference range varies by gestational period: First Trimester (weeks 9-12): 0.180-2.990 mIU/L Second Trimester: 0.110-3.980 mIU/L Third Trimester: 0.480-4.710 mIU/L Leonid Nagy et al. A Practical Approach for the Verifications and Determination of Site- and Trimester-Specific Reference Intervals for Thyroid Function tests in . Thyroid, 2019:29:3:412-420. Joaquin Hernandez et al. 2017 Guidelines of the [place] Thyroid Association for the Diagnosis and Management of Thyroid Disease during and the . Thyroid, 2017:27:3:315-389. Performed By: #### 2 4323-8, 3016-3 ####[facility] LABCLIA [id number] [facility] [place] [place] [address] [place] VITAMIN D 25 HYDROXYon 09-01 25-hydroxyvitamin D3 [Mass/Vol] 40.3 ng/mL 31.0 - 80.0 ng/mL [facility] HCV RNA SerPl NATASHA+probe-aCnc on 03-18-2023 HCV RNA NATASHA+probe Qn Not detected Normal HCV RNA not detected by PCR. [facility] Comment on above: Order Comment: Emmy chino Type: BLOOD SPECIMEN Ordering Facility: External Submitter Address: , , Performed By: #### 1 1011-4 #### [facility] LAB CLIA [id number] [address] [place], [place] [address] [place] [address] [place] US ABD RT UPPER QUADRANTon 0 08-15-2022 [facility] Absolute lymphocyte counton 12-24-2021 Lymphocytes Auto (Unsp spec) [#/Vol] 3.21 10*3/uL 0.83-4.51 [facility] Work Phone: Basophil percentageon 2021 Basophil percentage 25-50 SEEN /hpf [facility] Work Phone: Basophils/100 WBC (Bld) 0.5 % 0-1 [facility] Work Phone: Chloride [Moles/Vol] 106 mmol/L 98-107 [facility]: [phone] Eosinophils/100 WBC (Bld) 1.2 % 0-5 [facility] Work Phone: Glucose [Mass/Vol] 109 mg/dL 74-106 [facility] Work Phone: Comment on above: Fasting Glucose resu lt from 100 to 125 mg/dL suggests IMPAIRED HOMEOSTASIS per A.D.A. criteria. Neutrophils (Bld) [#/Vol] 10.7 10*3/uL 2.0-7.7 [facility] Work Phone: Neutrophils/100 WBC (Bld) 71.1 % 47-70 [facility] Work Phone: Potassium [Moles/Vol] 3.8 mmol/L 3.5-5.1 [facility] Work [facility]: Sodium [Moles/Vol] 139 mmol/L 136-145 [facility] Work Phone: WBC (Bld) [#/Vol] 15.0 10*3/uL 4.4-11.0 [facility] Work Phone: Bilirubin Test strip Ql (U)o n 12-24-2021 Bilirubin Ql (U) Negative Negative [facility] Work Phone: Blood erythrocytes count (nu mber/volume)on 12-24-2021 RBC (Bld) [#/Vol] 4.26 10*6/uL 4.2-5.4 [facility] Work Phone: Blood hemoglobin measurement (mass/volume)on 12-24-2021 Hemoglobin (Bld) [Mass/Vol] 13.4 g/dL 12.0-15.0 [facility] Work Phone: Blood lymphocytes/100 leukoc yteson 12-24-2021 Lymphocytes/100 WBC (Bld) 21.4 % 19-41 [facility] Work Phone: Blood monocytes/100 leukocyt eson 12-24-2021 Monocytes/100 WBC (Bld) 5.4 % 0-10 [facility] Work Phone: Blood platelet mean volumeon 12-24-2021 Platelet mean volume (Bld) [Entitic vol] 11.1 fL 6.2-12.0 [facility] Work Phone: Determination of erythrocyte mean corpuscular volume (MCV)on 12-24-2021 MCV (RBC) [Entitic vol] 92.0 fL 81-99 [facility] Work Phone: Hematocrit Auto (Bld) [Volum e fraction]on 12-24-2021 Hematocrit (Bld) [Volume fraction] 39.2 % 37-47 [facility] Work Phone: Ketones Test strip Ql (U)on 12-24-2021 Ketones Ql (U) Negative Negative [facility] Work Phone: Laboratory - Chemistry and C hemistry - challengeon 12-24-2021 HCG ( test) Ql (U) Negative [facility] Work Phone: Comment on above: Very dilute urine sp ecimens, as indicated by a low specificgravity, may not contain phlebotomy services representative levels of hCG. If is still suspected, a first morning urinespecimen should be collected 48 hours later and tested. CO2 [Moles/Vol] 26.0 mmol/L 21.0-32.0 [facility] Work Phone: Urea nitrogen/Creatinine [Mass ratio] 22.4 mg/mg 10-20 [facility] Work Phone: Laboratory - Hematology and Cell countson 12-24-2021 Erythrocyte distribution width (RBC) [Entitic vol] 42.6 fL 35.1-43.9 [facility] Work Phone: Erythrocyte distribution width (RBC) [Ratio] 12.8 % 11.6-14.6 [facility] Work Phone: Immature granulocytes/100 WBC (Bld) 0.400 % 0.0-0.9 [facility] Work Phone: Comment on above: IG% - Immature Granu locytes (promyelocytes, myelocytes and metamyelocytes) > 1% indicates that a LEFT SHIFT is Present. MCH (RBC) [Entitic mass] 31.5 pg 27.0-32.0 [facility] Work Phone: Nucleated RBC/100 WBC (Bld) [Ratio] 0 % 0-5 [facility] Work Phone: MCHC Auto (RBC) [Mass/Vol]on 12-24-2021 MCHC (RBC) [Mass/Vol] 34.2 g/dL 32-36 [facility] Work Phone: Mucus LM Ql (Urine sed)on Mucus Ql (Urine sed) 0 SEEN /hpf [facility] Work Phone: Nitrite Test strip Ql (U)on 12-24-2021 Nitrite Ql (U) Negative Negative [facility] Work Phone: No Panel Informationon 12-24 Estimated Creatinine Clearance Calc 116.15 ml/min [facility] Work Phone: Estimated GFR (MDRD) Amer 128 mL/min >60 [facility] Work Phone: Comment on above: GFR Calc Estimated GFR (MDRD) Non-Af Amer 105 mL/min >60 [facility] Work Phone: Comment on above: Non- GFR Calc Platelets bldon 12-24-2021 Platelets (Bld) [#/Vol] 211 10*3/uL 150-450 [facility] Work Phone: Protein Test strip Ql (U)on 12-24-2021 Protein Ql (U) 30 mg/dl Negative [facility] Work Phone: Serum or plasma calcium tito urement (mass/volume)on 12-24-2021 Calcium [Mass/Vol] 9.2 mg/dL 8.5-10.1 [facility] Work Phone: Serum or plasma creatinine m easurement (mass/volume)on 12-24-2021 Creatinine [Mass/Vol] 0.72 mg/dL 0.55-1.02 [facility] Work Phone: Comment on above: The validity of the calculated GFR & GFRAA in patients over 70 years has not been determined. Clinical correlation is essential. Serum or plasma urea nitroge n measurement (mass/volume)on 12-24-2021 Urea nitrogen [Mass/Vol] 16 mg/dL 7-18 [facility] Work Phone: Squamous epithelial cells de tection in urine sediment by light microscopyon 12-24-2021 Epithelial cells.squamous LM Ql (Urine sed) 0-5 SEEN /hpf [facility] Work Phone: Thin prep Papanicolaou smear with manual screeningon 12-24-2021 Thin prep Papanicolaou smear with manual screening 7 5-15 [facility] Work Phone: Urine blood detectionon RBC Ql (U) 250 /ul Negative [facility] Work Phone: RBC Ql (U) 25-50 SEEN /hpf [facility] Work Phone: Urine clarityon 12-24-2021 Clarity (U) Sl. Cloudy Clear [facility] Work Phone: Urine color determinationon 12-24-2021 Color (U) Yellow Yellow [facility] Work Phone: Urine glucose detectionon Glucose Ql (U) Normal mg/dl Normal [facility] Work Phone: Urine leukocyte esterase det ection by dipstickon 12-24-2021 Leukocyte esterase Test strip Ql (U) 100 /ul Negative [facility] Work Phone: Urine pHon 12-24-2021 pH (U) 6.0 [pH] [facility] Work Phone: Urine sediment bacteria coun t by microscopy (number/high power field)on 12-24-2021 Bacteria LM.HPF (Urine sed) [#/Area] 1 /[HPF] None Seen [facility] Work Phone: Urine specific gravity measu rementon 12-24-2021 Specific gravity (U) [Rel density] 1.020 [facility] Work Phone: Urobilinogen Auto test strip Ql (U)on 12-24-2021 Urobilinogen Ql (U) Normal mg/dl Normal [facility] Work Phone: US THYROID/PARATHYROIDon [facility] Vital Signs Date Time Vital Sign Value Performing Clinician Faci lity 05-02-2025 17:06-0400 Body height 172.7 cm Lala Davis MD Work Phone: [facility] [employer] 05-02-2025 17:06-0400 Body mass index (BMI) [Ratio] 22.05 kg/m2 Lala Davis MD Work Phone: [employer] 05-02-2025 17:06-0400 Body temperature 98.01 [degF] Lala Davis MD Work Phone: [employer] 05-02-2025 17:06-0400 Body weight 65.77 kg Lala Davis MD Work Phone: [employer] 05-02-2025 17:06-0400 Diastolic blood pressure 76 mm[Hg] Lala Davis MD Work Phone: [employer] 05-02-2025 17:06-0400 Heart rate 83 /min Lala Davis MD Work Phone: [employer] 05-02-2025 17:06-0400 Respiratory rate 18 /min Lala Davis MD Work Phone: [employer] 05-02-2025 17:06-0400 SaO2% (BldA) [Mass fraction] 100 % Lala Davis MD Work Phone: [employer] 05-02-2025 17:06-0400 Systolic blood pressure 122 mm[Hg] Lala Davis MD Work Phone: [employer] 05-01-2025 05:30-0400 Body height 172.7 cm Lala Fischer MD Work Phone: [employer] 05-01-2025 05:30-0400 Body mass index (BMI) [Ratio] 22.05 kg/m2 Lala Fischer MD Work Phone: [employer] 05-01-2025 05:30-0400 Body temperature 97.81 [degF] Lala Fischer MD Work Phone: [employer] 05-01-2025 05:30-0400 Body weight 65.77 kg Lala Fischer MD Work Phone: [employer] 05-01-2025 05:30-0400 Diastolic blood pressure 67 mm[Hg] Lala Fischer MD Work Phone: [employer] 05-01-2025 05:30-0400 Heart rate 89 /min Lala Fischer MD Work Phone: [employer] 05-01-2025 05:30-0400 Respiratory rate 16 /min Lala Fischer MD Work Phone: [employer] 05-01-2025 05:30-0400 SaO2% (BldA) [Mass fraction] 100 % Lala Fischer MD Work Phone: [facility] [employer] 05-01-2025 05:30-0400 Systolic blood pressure 124 mm[Hg] Lala Fischer MD Work Phone: [facility] [employer] 11-24-2023 14:06-0400 Body mass index (BMI) [Ratio] 18.35 kg/m2 Mark Romero PA Work Phone: [facility] 11-24-2023 14:06-0400 Body temperature 98.4 [degF] Krislyn Aberegg PA Work Phone: [facility] 11-24-2023 14:06-0400 Body weight 54.1 kg Krislyn Aberegg PA Work Phone: [facility] 11-24-2023 14:06-0400 Diastolic blood pressure 72 mm[Hg] Krislyn Aberegg PA Work Phone: [facility] 11-24-2023 14:06-0400 Heart rate 77 /min Krislyn Aberegg PA Work Phone: [facility] 11-24-2023 14:06-0400 Respiratory rate 18 /min Krislyn Aberegg PA Work Phone: [facility] 11-24-2023 14:06-0400 SaO2% (BldA) [Mass fraction] 99 % Krislyn Aberegg PA Work Phone: [facility] 11-24-2023 14:06-0400 Systolic blood pressure 110 mm[Hg] Krislyn Aberegg PA Work Phone: [facility] 09-01-2023 14:36-0500 Body weight 54.43 kg January Helio [employer]IOR [employer] Work Phone: [facility] 09-01-2023 14:36-0500 Diastolic blood pressure 66 mm[Hg] January Helio [employer]ENIOR [employer] Work Phone: [facility] 09-01-2023 14:36-0500 Heart rate 94 /min January Helio SENIOR [employer] Work Phone: [facility] 09-01-2023 14:36-0500 Respiratory rate 18 /min January Helio SENIOR UI [employer] Work Phone: [facility] 09-01-2023 14:36-0500 SaO2% (BldA) [Mass fraction] 98 % January Helio SENIOR UI [employer] Work Phone: [facility] 09-01-2023 14:36-0500 Systolic blood pressure 122 mm[Hg] January Helio SENIOR UI [employer] Work Phone: [facility] 06-05-2022 14:58-0500 Body height 171.7 cm Doron Mariee MD Work Phone: [facility] 06-05-2022 14:58-0500 Body temperature 98.4 [degF] Doron Mariee MD Work Phone: [facility] 06-05-2022 14:58-0500 Body weight 56.7 kg Doron Mariee MD Work Phone: [facility] 06-05-2022 14:58-0500 Diastolic blood pressure 68 mm[Hg] Doron Mariee MD Work Phone: [facility] 06-05-2022 14:58-0500 Heart rate 76 /min Doron Mariee MD Work Phone: [facility] 06-05-2022 14:58-0500 Respiratory rate 20 /min Doron Mariee MD Work Phone: [facility] 06-05-2022 14:58-0500 Systolic blood pressure 110 mm[Hg] Doron Mariee MD Work Phone: [facility] 12-24-2021 05:18-0400 Diastolic blood pressure 74 mm[Hg] [facility] Work Phone: 12-24-2021 05:18-0400 Heart rate 62 /min [facility] Work Phone: 12-24-2021 05:18-0400 Respiratory rate 15 /min [facility] Work Phone: 12-24-2021 05:18-0400 SaO2% (BldA) [Mass fraction] 98 % [facility] Work Phone: 12-24-2021 05:18-0400 Systolic blood pressure 138 mm[Hg] [facility] Work Phone: 12-24-2021 03:17-0400 Body height 170.18 cm [facility] Work Phone: 12-24-2021 03:17-0400 Body mass index (BMI) [Ratio] 22.4 kg/m2 [facility] Work Phone: 12-24-2021 03:17-0400 Body temperature 98.3 [degF] [facility] Work Phone: 12-24-2021 03:17-0400 Body weight 65 kg [facility] Work Phone: 12-10-2021 11:25-0400 Body temperature 98.2 [degF] Doron Mariee MD Work Phone: [facility] 12-10-2021 11:250400 Body weight 62.14 kg Doron Mariee MD Work Phone: [facility] 12-10-2021 11:25-0400 Diastolic blood pressure 64 mm[Hg] Doron Mariee MD Work Phone: [facility] 12-10-2021 11:25-0400 Heart rate 80 /min Doron Mariee MD Work Phone: [facility] 12-10-2021 11:25-0400 Respiratory rate 16 /min Doron Mariee MD Work Phone: [facility] 12-10-2021 11:25-0400 Systolic blood pressure 108 mm[Hg] Doron Mariee MD Work Phone: [facility] 11-06-2021 13:36-0400 Heart rate 88 /min [facility] Work Phone: 11-06-2021 13:36-0400 Respiratory rate 17 /min [facility] Work Phone: 11-06-2021 13:36-0400 SaO2% (BldA) [Mass fraction] 97 % [facility] Work Phone: 11-06-2021 13:05-0400 Body height 170.18 cm [facility] Work Phone: 11-06-2021 13:05-0400 Body mass index (BMI) [Ratio] 22.1 kg/m2 [facility] Work Phone: 11-06-2021 13:05-0400 Body temperature 98.9 [degF] [facility] Work Phone: 11-06-2021 13:05-0400 Body weight 64 kg [facility] Work Phone: 11-06-2021 13:05-0400 Diastolic blood pressure 60 mm[Hg] [facility] Work Phone: 11-06-2021 13:05-0400 Systolic blood pressure 105 mm[Hg] [facility] Work Phone: 07-21-2021 23:50-0500 Respiratory rate 16 /min [facility] Work Phone: 07-21-2021 21:28-0500 Body mass index (BMI) [Ratio] 21.9 kg/m2 [facility] Work Phone: 07-21-2021 21:28-0500 Body temperature 97.2 [degF] [facility] Work Phone: 07-21-2021 21:28-0500 Body weight 63.5 kg [facility] Work Phone: 07-21-2021 21:28-0500 Diastolic blood pressure 78 mm[Hg] [facility] Work Phone: 07-21-2021 21:28-0500 Heart rate 73 /min [facility] Work Phone: 07-21-2021 21:28-0500 SaO2% (BldA) [Mass fraction] 98 % [facility] Work Phone: 07-21-2021 21:28-0500 Systolic blood pressure 107 mm[Hg] [facility] Work Phone: Encounters Encounter Date Encounter Type Care Provider Facility Start: 05-26-2025 End: 05-26-2025 ambulatory Rolanda Heilwood Facility:[facility] Start: 05-03-2025 End: 05-03-2025 ambulatory Rolanda Heilwood Facility:[facility] Start: 05-02-2025 End: 05-02-2025 Emergency department patient visit Lala Davis MD Work Phone: [facility] Comment on above: Threatened (Primary Dx) Start: 05-01-2025 End: 05-01-2025 Emergency department patient visit Lala Fischer MD Work Phone: [facility] Comment on above: Hives (Primary Dx) Start: 11-25-2023 Telephone encounter Mark TROY Work Phone: [facility] Comment on above: Results work excuse Start: 11-24-2023 End: 11-24-2023 ambulatory DORON MARIEE Facility:[facility] Start: 11-24-2023 End: 11-24-2023 Patient encounter procedure Mark TROY Work Phone: [facility] Comment on above: Burning with urinati on (Primary Dx); Vaginal lesion Start: 10-28-2023 ambulatory Doron silveira MD Work Phone: [facility] [place] Comment on above: vaginal bleeding Start: 09-15-2023 End: 09-15-2023 [facility] Adina Duggan [facility] Work Phone: Psychology Comment on above: Mild mixed bipolar I disorder (HCC) (Primary Dx) Start: 09-04-2023 End: 09-04-2023 ambulatory January Castañeda APRN.[employer] Work Phone: [facility] Comment on above: lab results Start: 09-04-2023 E-mail encounter fro m caregiver January Castañeda APRN.[employer] Work Phone: [facility] Start: 09-02-2023 Telephone encounter Adina pimentel [facility] Work Phone: Psychology Comment on above: bh consult Start: 09-01-2023 End: 09-02-2023 ambulatory JANUARY CASTAÑEDA Facility:[facility] Start: 09-01-2023 End: 09-01-2023 Patient encounter procedure January Castañeda SENIOR UI [employer] DES[employer] Work Phone: [facility] [place] Comment on above: Fatigue, unspecified type (Primary Dx); Mildly underweight adult; History of hepatitis C; Screen for STD (sexually transmitted disease); Schizoaffective disorder, unspecified type (HCC); Bipolar 1 disorder (HCC) Start: 03-18-2023 End: 03-19-2023 ambulatory ROBIN JACKSON Facility:[facility] Start: 08-15-2022 End: 08-15-2022 Subsequent hospital visit by physician [facility] Work Phone: Radiology Start: 06-09-2022 Telephone encounter Doron mak MD Work Phone: [facility] [place] Comment on above: Results Start: 06-05-2022 End: 06-05-2022 Patient encounter procedure Doron Mariee MD Work Phone: [facility] [place] Comment on above: Weight loss, uninten tional (Primary Dx); Screening for HIV without presence of risk factors; Encounter for hepatitis C screening test for low risk patient Start: 12-24-2021 End: 12-24-2021 [facility] Start: 12-10-2021 End: 12-10-2021 Patient encounter procedure Doron Mariee MD Work Phone: [facility] [place] Comment on above: Schizoaffective diso rder, bipolar type (HCC) (Primary Dx); Screening for cervical cancer Start: 11-28-2021 ambulatory January Bonilla APRN .[employer] Work Phone: [facility] [place] Comment on above: Mental health Start: 11-06-2021 End: 11-06-2021 [facility] Start: 10-21-2021 Telephone encounter Nia OVALLES Work Phone: Psycholgy Comment on above: Returning Patient's Call Start: 10-17-2021 End: 10-17-2021 Subsequent hospital visit by physician [facility] Work Phone: Radiology Comment on above: Enlarged thyroid [E0 4.9] Start: 10-15-2021 Telephone encounter Nia OVALLES Work Phone: Psycholgy Comment on above: outreach Start: 07-21-2021 End: 07-22-2021 Emergency department patient visit [facility] Procedures Date Procedure Procedure Detail Performing Clinician Start: 05-02-2025 Us preg uterus real time w/image dcmtn transvag Lala Davis MD Work Phone: Start: 05-02-2025 Blood typing serolog ic abo Lala Davis MD Work Phone: Start: 05-02-2025 Gonadotropin chorion ic quantitative Lala Davis MD Work Phone: Start: 11-24-2023 BACTERIAL VAGINOSIS NAAT Krislyn P Aberegg PA Work Phone: Start: 11-24-2023 Iadna chlamydia trachomatis amplified probe tq Krislyn P Aberegg PA Work Phone: Start: 11-24-2023 Urnls dip stick/tabl et rgnt auto w/o microscopy Krislyn P Aberegg PA Work Phone: Start: 08-15-2022 Us abdominal real ti me w/image limited [facility] Provider Start: 12-24-2021 CT of abdomen and pe lvis without contrast Start: 10-17-2021 Us soft tissue head & neck real time imge docm January Older SENIOR UI UX DESIGNER.LOG ROPER Work Phone: Start: 10-11-2021 Adult depression screening assessment Nia OVALLES Work Phone: H/O: section History of section, low transverse Plan of Treatment Date Care Activity Detail Author Start: 2071 RSV Immunization for Adults (1 - 1-dose 75+ series) RSV Immunization for Adults (1 - 1-dose 75+ series) [facility] Start: 2046 Zoster Vaccines (1 of 2) Zoster Vacc carmen (1 of 2) [facility] Start: 03-20-2025 COVID-19 Vaccine (3 - 2025-26 season) COVID-19 Vaccine ( season) [facility] Start: 03-20-2025 Influenza vaccination Influenza Vacc ine (#1) [facility] Start: 09-01-2024 Covid-19 Vaccine ( season) Covid-19 Vaccine ( season) [facility] Comment on above: Postponed from 03/20 (Declined at this time) Start: 03-20-2024 Influenza vaccination Influenz a Vaccine (Season Ended) [facility] Start: 01-17-2024 Influenza vaccination Influenza Vacc ine (#1) [facility] Comment on above: Postponed from 03/20 (Declined at this time) Start: 11-24-2023 End: 02-23-2024 Herpes simplex virus+Varicella zoster virus DNA [Presence] in Unspecified specimen by NATASHA with probe detection [facility] Work Phone: Comment on above: Expected: 11/24/2023 , Expires: 02/23/2024 Start: 09-01-2023 End: 12-01-2023 Chronic hepatitis differentiation between hepatitis B and C virus panel - Serum or Plasma [facility] Work Phone: Comment on above: Expected: 09/01/2023 , Expires: 12/01/2023 Start: 09-01-2023 End: 12-01-2023 HIV 1+2 Ab [Presence] in Serum or Plasma by Immunoassay [facility] Work Phone: Comment on above: Expected: 09/01/2023 , Expires: 12/01/2023 Start: 06-05-2023 COVID-19 VACCINE (3 - Booster for Pfizer series) COVID-19 VACCINE (3 - Booster for Pfizer series) [facility] Comment on above: Postponed from 08/28 (Declined at this time) Start: 03-20-2023 Covid-19 Vaccine ( season) Covid-19 Vaccine ( season) [facility] Start: 03-20-2023 Influenza vaccination Influenza Vacc ine (#1) [facility] Start: 01-16-2023 Influenza vaccination INFLUENZA (#1) [facility] Comment on above: Postponed from 03/20 (Declined at this time) Start: 10-11-2022 Adult depression screening assessment DEPRESSION SCREENING [facility] Start: 10-11-2022 Urine microalbumin profile DTAP,TDAP,TD (7 - Td or Tdap) [facility] Comment on above: Postponed from 03/07 (Declined at this time) Start: 06-05-2022 End: 08-05-2022 CBC panel - Blood by Automated count CBC Lab Routine Weight loss, unintentional Expected: 06/05/2022, Expires: 08/05/2022 [facility] Work Phone: Comment on above: Expected: 06/05/2022 , Expires: 08/05/2022 Start: 06-05-2022 End: 08-05-2022 Comprehensive metabolic 2000 panel - Serum or Plasma COMP METABOLIC PANEL Lab Routine Weight loss, unintentional Expected: 06/05/2022, Expires: 08/05/2022 [facility] Work Phone: Comment on above: Expected: 06/05/2022 , Expires: 08/05/2022 Start: 06-05-2022 End: 08-05-2022 Hepatitis C virus Ab [Presence] in Serum HEP C AB IA W/CONF SCRN Lab Routine Encounter for hepatitis C screening test for low risk patient Expected: 06/05/2022, Expires: 08/05/2022 [facility] Work Phone: Comment on above: Expected: 06/05/2022 , Expires: 08/05/2022 Start: 06-05-2022 End: 08-05-2022 HIV 1+2 Ab [Presence] in Serum or Plasma by Immunoassay HIV 1 2 COMBO(AG/AB),WITH REFLEX TO DIFFERENTIATION Lab Routine Screening for HIV without presence of risk factors Expected: 06/05/2022, Expires: 08/05/2022 [facility] Work Phone: Comment on above: Expected: 06/05/2022 , Expires: 08/05/2022 Start: 06-05-2022 End: 08-05-2022 Thyrotropin [Units/volume] in Serum or Plasma TSH BLD Lab Routine Weight loss, unintentional Expected: 06/05/2022, Expires: 08/05/2022 [facility] Work Phone: Comment on above: Expected: 06/05/2022 , Expires: 08/05/2022 Start: 03-20-2022 Influenza vaccination INFLUENZA (Sea son Ended) [facility] Start: 01-16-2022 Influenza vaccination INFLUENZA (#1) [facility] Comment on above: Postponed from 03/20 (Declined at this time) Start: 12-24-2021 Bacteria identified in Urine by Culture Urine Culture [facility] Work Phone: Start: 12-01-2021 COVID-19 VACCINE (3 - Booster for Pfizer series) COVID-19 VACCINE (3 - Booster for Pfizer series) [facility] Start: 03-07-2021 DTaP/Tdap/Td Vaccine s (7 - Td or Tdap) DTaP/Tdap/Td Vaccines (7 - Td or Tdap) [facility] Start: 03-07-2021 Urine microalbumin profile DTaP,Tdap,Td Vaccine (7 - Td or Tdap) [facility] Start: 07-28-2019 Hepatitis A Vaccines (2 of 2 - 2-dose series) Hepatitis A Vaccines (2 of 2 - 2-dose series) [facility] Start: 2017 PAP TESTING PAP TESTING [facility] Start: 2017 Screening for malign ant neoplasm of cervix [facility] Start: 2010 PEDS TO ADULT TRANSI TION ANNUAL ASSESSMENT PEDS TO ADULT TRANSITION ANNUAL ASSESSMENT [facility] Start: 2008 Depression Monitoring Depression Mon itoring [facility] Start: 2008 PEDS TO ADULT TRANSI TION INITIAL DISCUSSION PEDS TO ADULT TRANSITION INITIAL DISCUSSION [facility] Start: 2002 Pneumococcal vaccination Pneum ococcal Vaccine (1 of 2 - PCV) [facility] Bacteria identified in Urine by Culture URINE CULTURE Microbiology Routine Burning with urination 11/24/2023 2:22 PM EDT [facility] Patient Education [facility] Work Phone: Patient referral [facility] Work Phone: [facility] Immunizations Immunization Date Immunization Notes Care Provider Geetha buchanan 01-25-2019 hepatitis A and hepatitis B vaccine Nia MCLEANW Work Phone: [facility] 12-28-2018 hepatitis A and hepatitis B vaccine Nia MCLEANW Work Phone: [facility] 12-28-2018 Human Papillomavirus 9-valent vaccine Nia MCLEANW Work Phone: [facility] 08-04-2013 influenza, seasonal, injectable Nia Mae CLINICAL DOCUMENTATION NURSE Work Phone: [facility] 08-04-2013 influenza virus vacc ine, unspecified formulation Us 2 Work Phone: [facility] 02-22-2013 hepatitis A vaccine, pediatric/adolescent dosage, 2 dose schedule Nia OVALLES Work Phone: [facility] 02-22-2013 human papilloma viru s vaccine, quadrivalent Nia MCLEANW Work Phone: [facility] 05-11-2012 human papilloma viru s vaccine, quadrivalent Nia Tu CMLEANW Work Phone: [facility] 03-07-2011 tetanus toxoid, redu andres diphtheria toxoid, and acellular pertussis vaccine, adsorbed Nia MCLEANW Work Phone: [facility] 04-19-2010 influenza, seasonal, injectable, preservative free Nia MCLEANW Work Phone: [facility] 04-12-2009 human papilloma viru s vaccine, quadrivalent Nia Mae CLINICAL DOCUMENTATION NURSE Work Phone: [facility] 04-12-2009 meningococcal polysaccharide (groups A, C, Y and W-135) diphtheria toxoid conjugate vaccine (MCV4P) Nia Mae CLINICAL DOCUMENTATION NURSE Work Phone: [facility] 04-12-2009 varicella virus vaccine Josh ntchente Mae CLINICAL DOCUMENTATION NURSE Work Phone: [facility] 08-16-2007 influenza virus vacc ine, whole virus Nia MCLEANW Work Phone: [facility] 08-20-2000 diphtheria, tetanus toxoids and acellular pertussis vaccine January RamirezHelio SENIOR UI UX DESIGNER.LOG ROPER Work Phone: [facility] 08-20-2000 diphtheria, tetanus toxoids and acellular pertussis vaccine, unspecified formulation Nia Mae CLINICAL DOCUMENTATION NURSE Work Phone: [facility] 08-20-2000 measles, mumps and rubella virus vaccine Nia Tu CLINICAL DOCUMENTATION NURSE Work Phone: [facility] 08-20-2000 poliovirus vaccine, inactivated Nia Mae CLINICAL DOCUMENTATION NURSE Work Phone: [facility] 10-24-1997 diphtheria, tetanus toxoids and acellular pertussis vaccine January RamirezHelio SENIOR UI UX DESIGNER.LOG ROPER Work Phone: [facility] 10-24-1997 diphtheria, tetanus toxoids and acellular pertussis vaccine, unspecified formulation Nia Mae CLINICAL DOCUMENTATION NURSE Work Phone: [facility] 10-24-1997 haemophilus influenz ae type b vaccine, PRP-OMP conjugate Nia Mae CLINICAL DOCUMENTATION NURSE Work Phone: [facility] 10-24-1997 haemophilus influenz ae type b vaccine, PRP-T conjugate January Castañeda SENIOR UI UX DESIGNER.LOG ROPER Work Phone: [facility] 10-24-1997 measles, mumps and rubella virus vaccine Nia Tu CLINICAL DOCUMENTATION NURSE Work Phone: [facility] 10-24-1997 varicella virus vaccine Josh ntchente Mae CLINICAL DOCUMENTATION NURSE Work Phone: [facility] 03-30-1997 diphtheria, tetanus toxoids and acellular pertussis vaccine January RamirezHelio SENIOR UI UX DESIGNER.LOG ROPER Work Phone: [facility] 03-30-1997 diphtheria, tetanus toxoids and acellular pertussis vaccine, unspecified formulation Nia Mae CLINICAL DOCUMENTATION NURSE Work Phone: [facility] 03-30-1997 haemophilus influenz ae type b vaccine, PRP-T conjugate Nia Mae CLINICAL DOCUMENTATION NURSE Work Phone: [facility] 03-30-1997 trivalent poliovirus vaccine, live, oral Nia Mae CLINICAL DOCUMENTATION NURSE Work Phone: [facility] 01-27-1997 diphtheria, tetanus toxoids and acellular pertussis vaccine January Helio SENIOR UI UX DESIGNER.LOG ROPER Work Phone: [facility] 01-27-1997 diphtheria, tetanus toxoids and acellular pertussis vaccine, unspecified formulation Nia Mae CLINICAL DOCUMENTATION NURSE Work Phone: [facility] 01-27-1997 haemophilus influenz ae type b vaccine, PRP-T conjugate Nia Mae CLINICAL DOCUMENTATION NURSE Work Phone: [facility] 01-27-1997 hepatitis B vaccine, pediatric or pediatric/adolescent dosage Nia Mae CLINICAL DOCUMENTATION NURSE Work Phone: [facility] 01-27-1997 trivalent poliovirus vaccine, live, oral Nia Mae CLINICAL DOCUMENTATION NURSE Work Phone: [facility] 1996 diphtheria, tetanus toxoids and acellular pertussis vaccine January Helio SENIOR UI UX DESIGNER.LOG ROPER Work Phone: [facility] 1996 diphtheria, tetanus toxoids and acellular pertussis vaccine, unspecified formulation Nia Mae CLINICAL DOCUMENTATION NURSE Work Phone: [facility] 1996 haemophilus influenz ae type b vaccine, PRP-T conjugate Nia Mae CLINICAL DOCUMENTATION NURSE Work Phone: [facility] 1996 trivalent poliovirus vaccine, live, oral Nia Mae CLINICAL DOCUMENTATION NURSE Work Phone: [facility] 1996 hepatitis B vaccine, pediatric or pediatric/adolescent dosage Nia Mae CLINICAL DOCUMENTATION NURSE Work Phone: [facility] 1996 hepatitis B vaccine, pediatric or pediatric/adolescent dosage Nia Mae CLINICAL DOCUMENTATION NURSE Work Phone: [facility] Payers Date Payer Category Payer Self-pay [id number] 2025 Commercial [facility] [id number] 2025 Unknown [id number] 2023 Unknown [id number] 2023 Medicaid [id number] 2020 Unknown MMO MMO [employer] [id number] 2020-Present [phone] [address] [place] [address] PPO [id number] 2020 Unknown [id number] 2017 Medicaid [facility] MEDICAID [facility] [employer] MEDICAID [id number] 2017-Present [phone] [address] [place] [address] Medicaid [id number] 2017 Medicaid [id number] 2016 Unknown R [place] [id number] Unknown R [place] [id number] Unknown [facility] [id number] Unknown [id number] Unknown [id number] Unknown [id number] Social History Date Type Detail Facility Start: 10-11-2021 End: 05-01-2025 Tobacco smoking status MEIS Never smoked tobacco [facility] Start: 10-11-2021 End: 05-01-2025 Tobacco use and exposure Smokeless tobacco non-user [facility] Start: 10-11-2021 End: 11-24-2023 Alcohol intake Ex-drinker (finding) [facility] Start: 1995 Sex Assigned At Not on file [facility] Start: 11-06-2021 End: 12-24-2021 Tobacco smoking status MEIS Unknown if ever smoked [facility] Work Phone: Start: 03-08-2020 - [facility] Work Phone: Start: 02-17-2020 Cigarettes [facility] Work Phone: Start: 1995 Sex Assigned At Female W [facility] Work Phone: Start: 12-04-2021 History SDOH Alcohol Frequency 1 [facility] Start: 12-04-2021 History SDOH Alcohol Std Drinks 98 [facility] Start: 12-11-2021 History SDOH Alcohol Comment Recovery [facility] Start: 12-04-2021 History SDOH Social Connections Phone 3 [facility] Start: 12-04-2021 History SDOH Social Connections Get Together 2 [facility] Start: 12-04-2021 History SDOH Social Connections Living 7 [facility] Start: 12-04-2021 History SDOH Stress 5 [facility] Start: 12-04-2021 History SDOH Financial 4 [facility] Start: 11-30-2021 End: 06-05-2022 Exposure to SARS-CoV-2 (event) Not sure [facility] Work Phone: Start: 12-04-2021 End: 05-02-2025 History of Social function [facility] Start: 12-04-2021 End: 05-02-2025 Social connection and isolation panel [facility] Do you belong to any clubs or organizations such as judaism groups, unions, fraternal or athletic groups, or school groups? No [facility] Are you now , , , , never or living with a partner? Never [facility] How often to you hav e a drink containing alcohol? Never [facility] How many standard dr inks containing alcohol do you have on a typical day? Patient refused [facility] How hard is it for y ou to pay for the very basics like food, housing, medical care, and heating Not very hard [facility] Do you feel stress - tense, restless, nervous, or anxious, or unable to sleep at night because your mind is troubled all the time - these days [OSQ] Very much [facility] (I/We) worried lola (my/our) food would run out before (I/we) got money to buy more. Never true [facility] Start: 09-01-2023 Tobacco smoking stat us MEIS Smokes tobacco daily [facility] Work Phone: History of tobacco use Cigarette Smoker [facility] Work Phone: Start: 09-01-2023 Tobacco Comment 09/01/23-down t o 5 cigarettes a day [facility] Start: 05-01-2025 End: 05-02-2025 Alcoholic beverage intake Lifetime non-drinker (finding) [facility] Start: 05-01-2025 Sex Female (finding) [facility] Functional Status Date Assessment Result Facility 05-01-2025 Total score [AUDIT-C] 0 05/01/20 25 5:33 AM Hali Harkins RN [facility] Clinical Notes 10-16-2021 to 05-02-2025 Discharge InstructionsAttachmentsLala Davis MD - 05/02/2025 4:59 PM Vic Carey RN - 05/02/2025 4:59 PM EDTBrenda Yakov Carey RN - 05/02/2025 4:59 PM EDTDischarge InstructionsAttachments Note Date & Type Note Facility 05-02-2025 Hospital Discharg e instructions Lala Davis MD - 05/02/2025 6:04 PM EDT Keep your appointment with your cancer program director tomorrow. Return to the emergency department if symptoms change or worsen. Find out the hospital that your cancer program director goes to. If you develop any significant vaginal bleeding you should go to that facility. The following attachments cannot be sent through Care Everywhere.Bleeding in Early Discharge Instructions (Macedonian)documented in this encounter [facility] 05-02-2025 Emergency department Note EMERGENCY DEPARTMENT ENCOUNTER Pt Name: Albaro Fitzpatrick Birthdate 1995 Date of evaluation: 05/02/2025 ED Provider: Lala Davis MD CHIEF COMPLAINT Chief Complaint Patient presents with Vaginal Bleeding - HISTORY OF PRESENT ILLNESS I wore appropriate PPE for the entirety of this encounter. HPI Albaro Fitzpatrick is a 29 y.o. female who presents to the emergency department complaining of pelvic cramping and spotting of brownish material. She believes she may have passed a small blood clot as well. Patient states that she is 6-1/2 weeks . She is Ab0. She called her cancer program director who schedule her an appointment tomorrow. Nursing Notes were reviewed. Limitations to history: None Outside historians: None REVIEW OF SYSTEMS Review of Systems Constitutional: Negative for chills and fever. HENT: Negative for ear pain and sore throat. Eyes: Negative for pain and visual disturbance. Respiratory: Negative for cough and shortness of breath. Cardiovascular: Negative for chest pain and palpitations. Gastrointestinal: Negative for abdominal pain and vomiting. Genitourinary: Positive for pelvic pain and vaginal bleeding. Negative for dysuria and hematuria. Musculoskeletal: Negative for arthralgias and back pain. Skin: Negative for color change and rash. Neurological: Negative for seizures and syncope. All other systems reviewed and are negative. PAST MEDICAL HISTORY Medical History[1] SURGICAL HISTORY Surgical History[2] CURRENT MEDICATIONS Previous Medications METHYLPREDNISOLONE (MEDROL DOSPAK) 4 MG TABLETS Follow schedule on package instructions ALLERGIES Patient has no known allergies. FAMILY HISTORY Family History[3] SOCIAL HISTORY Social History[4] SCREENINGS PHYSICAL EXAM ED Triage Vitals [05/02/25 1706] Temp Heart Rate Resp BP 36.7 C (98 F) 83 18 122/76 SpO2 Temp Source Heart Rate Source Patient Position 100 % Oral -- Sitting BP Location FiO2 (%) Right arm -- Physical Exam Vitals and nursing note reviewed. Constitutional: General: She is not in acute distress. Appearance: She is well-developed. Comments: The patient is a young female found lying on a cart. She is alert and oriented. She answers questions appropriately. HENT: Head: Normocephalic and atraumatic. Eyes: Conjunctiva/sclera: Conjunctivae normal. Cardiovascular: Rate and Rhythm: Normal rate and regular rhythm. Heart sounds: No murmur heard. Pulmonary: Effort: Pulmonary effort is normal. No respiratory distress. Breath sounds: Normal breath sounds. Abdominal: Palpations: Abdomen is soft. Tenderness: There is no abdominal tenderness. Musculoskeletal: General: No swelling. Cervical back: Neck supple. Skin: General: Skin is warm and dry. Capillary Refill: Capillary refill takes less than 2 seconds. Neurological: Mental Status: She is alert. Psychiatric: Mood and Affect: Mood normal. DIAGNOSTIC RESULTS RADIOLOGY (Per Emergency Physician): Interpretation per the Radiologist below, if available at the time of this note: US OB transvaginal Final Result 1. Single, live intrauterine . Report Dictated on Electronically Signed By: Dangelo Sadler MD Electronically Signed Date/Time: 05/02/2025 5:59 PM EDT LABS: Labs Reviewed ABO RH BLOOD TYPE Result Value ABO Grouping O Rh Type POS HCG QUANTITATIVE BLOOD HCG QUANTITATIVE 58,474.8 Narrative: Values in should double every 2 to 3 days for the first 6 weeks. Elevated concentrations of human chorionic gonadotropin (hCG) measured in the first trimester of are observed in normal , but may serve as an indication of chorionic carcinoma, hydatiform mole, or multiple . Decreasing hCG concentrations indicate threatened or missed , recent termination of , ectopic , gestosis or intrauterine . Katelynn- and postmenopausal females may have detectable hCG concentrations (< or = to 14 mIU/mL) due to pituitary production of hCG. Serum follicle-stimulating hormone measurement may aid in ruling-out in this population. Cutoffs of greater than 20 to 45 mIU/mL have been suggested and are method dependent. False-elevations (called phantom human chorionic gonadotropin: hCG) may occur with patients who have human antianimal or heterophilic antibodies. Some specimens may not dilute linearly due to abnormal forms of hCG. Elevated hCG concentrations not associated with are found in patients with other diseases such as tumors of the germ cells, ovaries, bladder, pancreas, stomach, lungs, and liver. This test is not intended to detect or monitor tumors or gestational trophoblastic disease. All other labs were within normal range or not returned as of this dictation. EMERGENCY DEPARTMENT COURSE and DIFFERENTIAL DIAGNOSIS/MDM: Vitals: Vitals: 05/02/25 1706 BP: 122/76 BP Location: Right arm Patient Position: Sitting Pulse: 83 Resp: 18 Temp: 36.7 C (98 F) TempSrc: Oral SpO2: 100% Weight: 65.8 kg (145 lb) Height: 1.727 m (5' 8) Medications Administered in the ED: Medications - No data to display I Lala Davis MD am the billing clinician of record. PROCEDURES: Unless otherwise noted below, none Procedures Differential Diagnosis Considerations: Differential diagnosis includes threatened AB, ectopic , . ED testing and evaluation will be obtained to help differentiate these diagnostic possibilities and determine the most likely cause. Sources of History: I evaluated other historical sources including previous outpatient records and admission records. ED Course: In the emergency department I initially evaluated the patient with a history and physical examination in order to determine diagnostic testing and therapeutic care. On the basis of this history and physical examination serum quantitative hCG will be obtained along with a pelvic ultrasound. Type and Rh will be obtained. Reassessment: Patient serum quant is 58,474. The pelvic ultrasound demonstrates a single live intrauterine measuring 6 weeks 4 days. Patient has an appointment with her cancer program director tomorrow. I have advised her that she may be threatening to miscarry. I advised her to find out the facility that her cancer program director goes to and that if she has further issues she may want to go to that facility. Consideration of Admission/Observation: I considered admission for this patient, however, at this time the patient appears to be stable. I do not believe that the patient would benefit from admission at this time. I believe the patient can follow-up with the primary care physician. The patient is advised to return to the emergency department if symptoms change or worsen where admission may need to be considered at a another time. Independent Interpretation of Tests: I independently evaluated the results of the patient's diagnostic testing in the context of the patient's presentation. Diagnostic Tests Considered but not Performed: All test necessary in the evaluation of this patient are being obtained. Prescription Medications Considered but not Prescribed: None Chronic Conditions Affecting Care: None FINAL IMPRESSION 1. Threatened DISPOSITION Discharge 05/02/2025 06:03:41 PM PATIENT REFERRED TO: [facility] [address] [facility] [place] [address] As needed DISCHARGE MEDICATIONS: New Prescriptions No medications on file (Comment: Please note this report has been produced using speech recognition software and may contain errors related to that system including errors in grammar, punctuation, and spelling, as well as words and phrases that may be inappropriate. If there are any questions or concerns please feel free to contact the dictating provider for clarification.) Lala Davis MD (electronically signed) Emergency Medicine Provider [1] History reviewed. No pertinent past medical history. [2] History reviewed. No pertinent surgical history. [3] No family history on file. [4] Social History Socioeconomic History Marital status: Significant Other Tobacco Use Smoking status: Never Smokeless tobacco: Never Vaping Use Vaping status: Every Day Substances: Nicotine Substance and Sexual Activity Alcohol use: Never Drug use: Never Social Drivers of Health Financial Resource Strain: Low Risk (12/04/2021) Received from [facility] Overall Financial Resource Strain (CARDIA) Difficulty of Paying Living Expenses: Not very hard Food Insecurity: No Food Insecurity (12/04/2021) Received from [facility] Hunger Vital Sign Worried About Running Out of Food in the Last Year: Never true Ran Out of Food in the Last Year: Never true Transportation Needs: No Transportation Needs (12/04/2021) Received from [facility] PRAPARE - Transportation Lack of Transportation (Medical): No Lack of Transportation (Non-Medical): No Physical Activity: Insufficiently Active (12/04/2021) Received from [facility] Exercise Vital Sign Days of Exercise per Week: 3 days Minutes of Exercise per Session: 30 min Stress: Stress Concern Present (12/04/2021) Received from [facility] [employer] - Occupational Stress Questionnaire Feeling of Stress : Very much Social Connections: Socially Isolated (12/04/2021) Received from [facility] Social Connection and Isolation Panel [NHANES] Frequency of Communication with Friends and Family: Twice a week Frequency of Social Gatherings with Friends and Family: Once a week Attends [employer] Services: Never Active Member of Clubs or Organizations: No Attends Club or Organization Meetings: Never Marital Status: Never Housing Stability: Low Risk (12/04/2021) Received from [facility] Housing Stability Vital Sign Unable to Pay for Housing in the Last Year: No Number of Places Lived in the Last Year: 1 Unstable Housing in the Last Year: No Lala Davis MD 05/02/251804 Patient states she had some brown vaginal discharge in her underwear earlier today and when she urinated passed a blood clot that looked like a sac. Patient is currently 8 wks . documented in this encounter [facility] 05-02-2025 Emergency department Triage note Patient states she had some brown vaginal discharge in her underwear earlier today and when she urinated passed a blood clot that looked like a sac. Patient is currently 8 wks . [facility] 05-02-2025 Physician Emergency department Note EMERGENCY DEPARTMENT ENCOUNTER Pt Name: Albaro Fitzpatrick Birthdate 1995 Date of evaluation: 05/02/2025 ED Provider: Lala Davis MD CHIEF COMPLAINT Chief Complaint Patient presents with Vaginal Bleeding - HISTORY OF PRESENT ILLNESS I wore appropriate PPE for the entirety of this encounter. BRIAN Fitzpatrick is a 29 y.o. female who presents to the emergency department complaining of pelvic cramping and spotting of brownish material. She believes she may have passed a small blood clot as well. Patient states that she is 6-1/2 weeks . She is Ab0. She called her cancer program director who schedule her an appointment tomorrow. Nursing Notes were reviewed. Limitations to history: None Outside historians: None REVIEW OF SYSTEMS Review of Systems Constitutional: Negative for chills and fever. HENT: Negative for ear pain and sore throat. Eyes: Negative for pain and visual disturbance. Respiratory: Negative for cough and shortness of breath. Cardiovascular: Negative for chest pain and palpitations. Gastrointestinal: Negative for abdominal pain and vomiting. Genitourinary: Positive for pelvic pain and vaginal bleeding. Negative for dysuria and hematuria. Musculoskeletal: Negative for arthralgias and back pain. Skin: Negative for color change and rash. Neurological: Negative for seizures and syncope. All other systems reviewed and are negative. PAST MEDICAL HISTORY Medical History[1] SURGICAL HISTORY Surgical History[2] CURRENT MEDICATIONS Previous Medications METHYLPREDNISOLONE (MEDROL DOSPAK) 4 MG TABLETS Follow schedule on package instructions ALLERGIES Patient has no known allergies. FAMILY HISTORY Family History[3] SOCIAL HISTORY Social History[4] SCREENINGS PHYSICAL EXAM ED Triage Vitals [05/02/25 1706] Temp Heart Rate Resp BP 36.7 C (98 F) 83 18 122/76 SpO2 Temp Source Heart Rate Source Patient Position 100 % Oral -- Sitting BP Location FiO2 (%) Right arm -- Physical Exam Vitals and nursing note reviewed. Constitutional: General: She is not in acute distress. Appearance: She is well-developed. Comments: The patient is a young female found lying on a cart. She is alert and oriented. She answers questions appropriately. HENT: Head: Normocephalic and atraumatic. Eyes: Conjunctiva/sclera: Conjunctivae normal. Cardiovascular: Rate and Rhythm: Normal rate and regular rhythm. Heart sounds: No murmur heard. Pulmonary: Effort: Pulmonary effort is normal. No respiratory distress. Breath sounds: Normal breath sounds. Abdominal: Palpations: Abdomen is soft. Tenderness: There is no abdominal tenderness. Musculoskeletal: General: No swelling. Cervical back: Neck supple. Skin: General: Skin is warm and dry. Capillary Refill: Capillary refill takes less than 2 seconds. Neurological: Mental Status: She is alert. Psychiatric: Mood and Affect: Mood normal. DIAGNOSTIC RESULTS RADIOLOGY (Per Emergency Physician): Interpretation per the Radiologist below, if available at the time of this note: US OB transvaginal Final Result 1. Single, live intrauterine . Report Dictated on Electronically Signed By: Dangelo Sadler MD Electronically Signed Date/Time: 05/02/2025 5:59 PM EDT LABS: Labs Reviewed ABO RH BLOOD TYPE Result Value ABO Grouping O Rh Type POS HCG QUANTITATIVE BLOOD HCG QUANTITATIVE 58,474.8 Narrative: Values in should double every 2 to 3 days for the first 6 weeks. Elevated concentrations of human chorionic gonadotropin (hCG) measured in the first trimester of are observed in normal , but may serve as an indication of chorionic carcinoma, hydatiform mole, or multiple . Decreasing hCG concentrations indicate threatened or missed , recent termination of , ectopic , gestosis or intrauterine . Katelynn- and postmenopausal females may have detectable hCG concentrations (< or = to 14 mIU/mL) due to pituitary production of hCG. Serum follicle-stimulating hormone measurement may aid in ruling-out in this population. Cutoffs of greater than 20 to 45 mIU/mL have been suggested and are method dependent. False-elevations (called phantom human chorionic gonadotropin: hCG) may occur with patients who have human antianimal or heterophilic antibodies. Some specimens may not dilute linearly due to abnormal forms of hCG. Elevated hCG concentrations not associated with are found in patients with other diseases such as tumors of the germ cells, ovaries, bladder, pancreas, stomach, lungs, and liver. This test is not intended to detect or monitor tumors or gestational trophoblastic disease. All other labs were within normal range or not returned as of this dictation. EMERGENCY DEPARTMENT COURSE and DIFFERENTIAL DIAGNOSIS/MDM: Vitals: Vitals: 05/02/25 1706 BP: 122/76 BP Location: Right arm Patient Position: Sitting Pulse: 83 Resp: 18 Temp: 36.7 C (98 F) TempSrc: Oral SpO2: 100% Weight: 65.8 kg (145 lb) Height: 1.727 m (5' 8) Medications Administered in the ED: Medications - No data to display I Lala Davis MD am the billing clinician of record. PROCEDURES: Unless otherwise noted below, none Procedures Differential Diagnosis Considerations: Differential diagnosis includes threatened AB, ectopic , . ED testing and evaluation will be obtained to help differentiate these diagnostic possibilities and determine the most likely cause. Sources of History: I evaluated other historical sources including previous outpatient records and admission records. ED Course: In the emergency department I initially evaluated the patient with a history and physical examination in order to determine diagnostic testing and therapeutic care. On the basis of this history and physical examination serum quantitative hCG will be obtained along with a pelvic ultrasound. Type and Rh will be obtained. Reassessment: Patient serum quant is 58,474. The pelvic ultrasound demonstrates a single live intrauterine measuring 6 weeks 4 days. Patient has an appointment with her cancer program director tomorrow. I have advised her that she may be threatening to miscarry. I advised her to find out the facility that her cancer program director goes to and that if she has further issues she may want to go to that facility. Consideration of Admission/Observation: I considered admission for this patient, however, at this time the patient appears to be stable. I do not believe that the patient would benefit from admission at this time. I believe the patient can follow-up with the primary care physician. The patient is advised to return to the emergency department if symptoms change or worsen where admission may need to be considered at a another time. Independent Interpretation of Tests: I independently evaluated the results of the patient's diagnostic testing in the context of the patient's presentation. Diagnostic Tests Considered but not Performed: All test necessary in the evaluation of this patient are being obtained. Prescription Medications Considered but not Prescribed: None Chronic Conditions Affecting Care: None FINAL IMPRESSION 1. Threatened DISPOSITION Discharge 05/02/2025 06:03:41 PM PATIENT REFERRED TO: [facility] [address] [facility] [id number] As needed DISCHARGE MEDICATIONS: New Prescriptions No medications on file (Comment: Please note this report has been produced using speech recognition software and may contain errors related to that system including errors in grammar, punctuation, and spelling, as well as words and phrases that may be inappropriate. If there are any questions or concerns please feel free to contact the dictating provider for clarification.) Lala Davis MD (electronically signed) Emergency Medicine Provider [1] History reviewed. No pertinent past medical history. [2] History reviewed. No pertinent surgical history. [3] No family history on file. [4] Social History Socioeconomic History Marital status: Significant Other Tobacco Use Smoking status: Never Smokeless tobacco: Never Vaping Use Vaping status: Every Day Substances: Nicotine Substance and Sexual Activity Alcohol use: Never Drug use: Never Social Drivers of Health Financial Resource Strain: Low Risk (12/04/2021) Received from [facility] Overall Financial Resource Strain (CARDIA) Difficulty of Paying Living Expenses: Not very hard Food Insecurity: No Food Insecurity (12/04/2021) Received from [facility] Hunger Vital Sign Worried About Running Out of Food in the Last Year: Never true Ran Out of Food in the Last Year: Never true Transportation Needs: No Transportation Needs (12/04/2021) Received from [facility] PRAPARE - Transportation Lack of Transportation (Medical): No Lack of Transportation (Non-Medical): No Physical Activity: Insufficiently Active (12/04/2021) Received from [facility] Exercise Vital Sign Days of Exercise per Week: 3 days Minutes of Exercise per Session: 30 min Stress: Stress Concern Present (12/04/2021) Received from [facility] [employer] - Occupational Stress Questionnaire Feeling of Stress : Very much Social Connections: Socially Isolated (12/04/2021) Received from [facility] Social Connection and Isolation Panel [NHANES] Frequency of Communication with Friends and Family: Twice a week Frequency of Social Gatherings with Friends and Family: Once a week Attends [employer] Services: Never Active Member of Clubs or Organizations: No Attends Club or Organization Meetings: Never Marital Status: Never Housing Stability: Low Risk (12/04/2021) Received from [facility] Housing Stability Vital Sign Unable to Pay for Housing in the Last Year: No Number of Places Lived in the Last Year: 1 Unstable Housing in the Last Year: No Lala Davis MD 05/02/251804 [facility] 05-01-2025 Hospital Discharg e instructions Lala Fischer MD - 05/01/2025 6:04 AM EDT Please follow-up with your OB doctor if you are not seeing complete resolution as it could be related but this is much less likely. Continue Benadryl and you can also take Pepcid [id number] as this is also an antihistamine which can help treat the reaction. The following attachments cannot be sent through Care Everywhere.Hives Discharge Instructions (Macedonian)documented in this encounter [facility] 05-01-2025 Emergency department Note EMERGENCY DEPARTMENT ENCOUNTER Pt Name: Albaro Fitzpatrick Birthdate 1995 Date of evaluation: 05/01/2025 ED Provider: Lala Fischer MD CHIEF COMPLAINT Chief Complaint Patient presents with Hives HISTORY OF PRESENT ILLNESS (Location/Symptom, Timing/Onset, Context/Setting, Quality, Duration, Modifying Factors, Severity) Note limiting factors. I wore appropriate PPE for the entirety of this encounter. HPI Albaro Fitzpatrick is a 29 y.o. who presents to the emergency department with chief complaint of hives. States this started about 4 days ago and have progressed pretty diffusely over the extremities and torso. Denies any trouble breathing swallowing any facial swelling any vomiting abdominal pain any recent fever. She states she is approximately 8 weeks by LMP. Significant other states they did move into a new house recently. She states she has been using a different laundry detergent. She has also started taking Gummies which she has used in the past for . Denies any other medications or travel. Nursing Notes were reviewed. Limitations to history: None Outside historians: None REVIEW OF SYSTEMS Review of Systems Constitutional: Negative for fever. HENT: Negative for trouble swallowing and voice change. Respiratory: Negative for chest tightness and shortness of breath. Gastrointestinal: Negative for abdominal pain and vomiting. Skin: Positive for rash. Pertinent positives and negatives as per HPI. PAST MEDICAL HISTORY Medical History[1] SURGICAL HISTORY Surgical History[2] CURRENT MEDICATIONS Previous Medications No medications on file ALLERGIES Patient has no known allergies. FAMILY HISTORY Family History[3] SOCIAL HISTORY Social History[4] SCREENINGS PHYSICAL EXAM ED Triage Vitals [05/01/25 0530] Temp Heart Rate Resp BP 36.6 C (97.8 F) 89 16 124/67 SpO2 Temp Source Heart Rate Source Patient Position 100 % Oral Monitor Sitting BP Location FiO2 (%) Right arm -- Physical Exam Vitals and nursing note reviewed. Constitutional: General: She is not in acute distress. Appearance: She is well-developed. She is not ill-appearing or diaphoretic. HENT: Head: Normocephalic and atraumatic. Jaw: No trismus. Mouth/Throat: Mouth: Mucous membranes are moist. No angioedema. Pharynx: Oropharynx is clear. Comments: No swelling to the oropharynx Eyes: Extraocular Movements: Extraocular movements intact. Conjunctiva/sclera: Conjunctivae normal. Pupils: Pupils are equal, round, and reactive to light. Cardiovascular: Rate and Rhythm: Normal rate and regular rhythm. Heart sounds: No murmur heard. Pulmonary: Effort: Pulmonary effort is normal. No respiratory distress. Breath sounds: Normal breath sounds. Abdominal: Palpations: Abdomen is soft. Tenderness: There is no abdominal tenderness. Musculoskeletal: General: No swelling. Cervical back: Normal range of motion and neck supple. No rigidity or tenderness. Right lower leg: No edema. Left lower leg: No edema. Lymphadenopathy: Cervical: No cervical adenopathy. Skin: General: Skin is warm and dry. Capillary Refill: Capillary refill takes less than 2 seconds. Findings: Rash present. Comments: Diffuse hives that are blanching noted to the extremities and torso, no involvement of the mucous membranes or palms or soles, no target lesions no vesicles no cellulitis no skin sloughing or blistering Neurological: General: No focal deficit present. Mental Status: She is alert. Psychiatric: Mood and Affect: Mood normal. Thought Content: Thought content normal. DIAGNOSTIC RESULTS Procedures/EKG: EKG was reviewed by myself. Physician EKG interpretation can be found in [facility] RADIOLOGY (Per Emergency Physician): Interpretation per the Radiologist below, if available at the time of this note: No orders to display ED BEDSIDE ULTRASOUND: Performed by ED Physician - none LABS: Labs Reviewed - No data to display All other labs were within normal range or not returned as of this dictation. EMERGENCY DEPARTMENT COURSE and DIFFERENTIAL DIAGNOSIS/MDM: Vitals: Vitals: 05/01/25 0530 BP: 124/67 BP Location: Right arm Patient Position: Sitting Pulse: 89 Resp: 16 Temp: 36.6 C (97.8 F) TempSrc: Oral SpO2: 100% Weight: 65.8 kg (145 lb) Height: 1.727 m (5' 8) 29-year-old female here with hives. Differential allergic reaction, hives in (less likely PUPPP given first trimester), no evidence for angioedema or anaphylaxis or systemic infection. Appears well clinically otherwise with stable vital signs. She has already tried Benadryl. One-time Decadron and Pepcid given here. I spoke with Dr. Argueta with OB who states Decadron is reasonable and a Medrol Dosepak for home with benefits outweigh the risks during first trimester. Instructed her to continue Benadryl and also take [id number] Pepcid to help with the reaction. Return precautions given. Diagnoses as of 05/01/25605 Hives Medications dexAMETHasone (PF) (Decadron) injection 10 mg (10 mg IntraMUSCular Given 05/01/25600) famotidine (Pepcid) tablet 20 mg (20 mg Oral Given 05/01/25601) REVAL: CRITICAL CARE TIME CONSULTS: None PROCEDURES: Unless otherwise noted below, none Procedures Patients symptoms are consistent with sepsis, severe sepsis, or septic shock (If yes use .sepsiscoremeasure): FINAL IMPRESSION 1. Hives DISPOSITION Discharge 05/01/2025 06:03:52 AM PATIENT REFERRED TO: No follow-up provider specified. DISCHARGE MEDICATIONS: New Prescriptions METHYLPREDNISOLONE (MEDROL DOSPAK) 4 MG TABLETS Follow schedule on package instructions (Comment: Please note this report has been produced using speech recognition software and may contain errors related to that system including errors in grammar, punctuation, and spelling, as well as words and phrases that may be inappropriate. If there are any questions or concerns please feel free to contact the dictating provider for clarification.) Lala Fischer MD (electronically signed) Emergency Medicine Provider [1] History reviewed. No pertinent past medical history. [2] History reviewed. No pertinent surgical history. [3] No family history on file. [4] Social History Socioeconomic History Marital status: Significant Other Tobacco Use Smoking status: Never Smokeless tobacco: Never Vaping Use Vaping status: Every Day Substances: Nicotine Substance and Sexual Activity Alcohol use: Never Drug use: Never Social Drivers of [place] Financial Resource Strain: Low Risk (12/04/2021) Received from [facility] Overall Financial Resource Strain (CARDIA) Difficulty of Paying Living Expenses: Not very hard Food Insecurity: No Food Insecurity (12/04/2021) Received from [facility] Hunger Vital Sign Worried About Running Out of Food in the Last Year: Never true Ran Out of Food in the Last Year: Never true Transportation Needs: No Transportation Needs (12/04/2021) Received from [facility] PRAPARE - Transportation Lack of Transportation (Medical): No Lack of Transportation (Non-Medical): No Physical Activity: Insufficiently Active (12/04/2021) Received from [facility] Exercise Vital Sign Days of Exercise per Week: 3 days Minutes of Exercise per Session: 30 min Stress: Stress Concern Present (12/04/2021) Received from [facility] [employer] - Occupational Stress Questionnaire Feeling of Stress : Very much Social Connections: Socially Isolated (12/04/2021) Received from [facility] Social Connection and Isolation Panel [NHANES] Frequency of Communication with Friends and Family: Twice a week Frequency of Social Gatherings with Friends and Family: Once a week Attends [employer] Services: Never Active Member of Clubs or Organizations: No Attends Club or Organization Meetings: Never Marital Status: Never Housing Stability: Low Risk (12/04/2021) Received from [facility] Housing Stability Vital Sign Unable to Pay for Housing in the Last Year: No Number of Places Lived in the Last Year: 1 Unstable Housing in the Last Year: No Lala Fischer MD 05/01/25 0606 Patient arrived ambulatory to room 2 with family. Patient complains of itchy hives all over body. Hives started 4 days ago and have progressively gotten worse. Patient has taken benadryl with no relief. Patient currently 8 wks . documented in this encounter [facility] 05-01-2025 Emergency department Triage note Patient arrived ambulatory to room 2 with family. Patient complains of itchy hives all over body. Hives started 4 days ago and have progressively gotten worse. Patient has taken benadryl with no relief. Patient currently 8 wks . [facility] 05-01-2025 Note [facility] to room 2 with family. Patient complains of itchy hives all over body. Hives started 4 days ago and have progressively gotten worse. Patient has taken benadryl with no relief. Patient currently 8 wks . [facility] 05-01-2025 Physician Emergency department Note EMERGENCY DEPARTMENT ENCOUNTER Pt Name: Albaro Fitzpatrick Birthdate 1995 Date of evaluation: 05/01/2025 ED Provider: Lala Fischer MD CHIEF COMPLAINT Chief Complaint Patient presents with Hives HISTORY OF PRESENT ILLNESS (Location/Symptom, Timing/Onset, Context/Setting, Quality, Duration, Modifying Factors, Severity) Note limiting factors. I wore appropriate PPE for the entirety of this encounter. HPI Albaro Fitzpatrick is a 29 y.o. who presents to the emergency department with chief complaint of hives. States this started about 4 days ago and have progressed pretty diffusely over the extremities and torso. Denies any trouble breathing swallowing any facial swelling any vomiting abdominal pain any recent fever. She states she is approximately 8 weeks by LMP. Significant other states they did move into a new house recently. She states she has been using a different laundry detergent. She has also started taking Gummies which she has used in the past for . Denies any other medications or travel. Nursing Notes were reviewed. Limitations to history: None Outside historians: None REVIEW OF SYSTEMS Review of Systems Constitutional: Negative for fever. HENT: Negative for trouble swallowing and voice change. Respiratory: Negative for chest tightness and shortness of breath. Gastrointestinal: Negative for abdominal pain and vomiting. Skin: Positive for rash. Pertinent positives and negatives as per HPI. PAST MEDICAL HISTORY Medical History[1] SURGICAL HISTORY Surgical History[2] CURRENT MEDICATIONS Previous Medications No medications on file ALLERGIES Patient has no known allergies. FAMILY HISTORY Family History[3] SOCIAL HISTORY Social History[4] SCREENINGS PHYSICAL EXAM ED Triage Vitals [05/01/25 0530] Temp Heart Rate Resp BP 36.6 C (97.8 F) 89 16 124/67 SpO2 Temp Source Heart Rate Source Patient Position 100 % Oral Monitor Sitting BP Location FiO2 (%) Right arm -- Physical Exam Vitals and nursing note reviewed. Constitutional: General: She is not in acute distress. Appearance: She is well-developed. She is not ill-appearing or diaphoretic. HENT: Head: Normocephalic and atraumatic. Jaw: No trismus. Mouth/Throat: Mouth: Mucous membranes are moist. No angioedema. Pharynx: Oropharynx is clear. Comments: No swelling to the oropharynx Eyes: Extraocular Movements: Extraocular movements intact. Conjunctiva/sclera: Conjunctivae normal. Pupils: Pupils are equal, round, and reactive to light. Cardiovascular: Rate and Rhythm: Normal rate and regular rhythm. Heart sounds: No murmur heard. Pulmonary: Effort: Pulmonary effort is normal. No respiratory distress. Breath sounds: Normal breath sounds. Abdominal: Palpations: Abdomen is soft. Tenderness: There is no abdominal tenderness. Musculoskeletal: General: No swelling. Cervical back: Normal range of motion and neck supple. No rigidity or tenderness. Right lower leg: No edema. Left lower leg: No edema. Lymphadenopathy: Cervical: No cervical adenopathy. Skin: General: Skin is warm and dry. Capillary Refill: Capillary refill takes less than 2 seconds. Findings: Rash present. Comments: Diffuse hives that are blanching noted to the extremities and torso, no involvement of the mucous membranes or palms or soles, no target lesions no vesicles no cellulitis no skin sloughing or blistering Neurological: General: No focal deficit present. Mental Status: She is alert. Psychiatric: Mood and Affect: Mood normal. Thought Content: Thought content normal. DIAGNOSTIC RESULTS Procedures/EKG: EKG was reviewed by myself. Physician EKG interpretation can be found in [facility] RADIOLOGY (Per Emergency Physician): Interpretation per the Radiologist below, if available at the time of this note: No orders to display ED BEDSIDE ULTRASOUND: Performed by ED Physician - none LABS: Labs Reviewed - No data to display All other labs were within normal range or not returned as of this dictation. EMERGENCY DEPARTMENT COURSE and DIFFERENTIAL DIAGNOSIS/MDM: Vitals: Vitals: 05/01/25 0530 BP: 124/67 BP Location: Right arm Patient Position: Sitting Pulse: 89 Resp: 16 Temp: 36.6 C (97.8 F) TempSrc: Oral SpO2: 100% Weight: 65.8 kg (145 lb) Height: 1.727 m (5' 8) 29-year-old female here with hives. Differential allergic reaction, hives in (less likely PUPPP given first trimester), no evidence for angioedema or anaphylaxis or systemic infection. Appears well clinically otherwise with stable vital signs. She has already tried Benadryl. One-time Decadron and Pepcid given here. I spoke with Dr. Argueta with OB who states Decadron is reasonable and a Medrol Dosepak for home with benefits outweigh the risks during first trimester. Instructed her to continue Benadryl and also take [id number] Pepcid to help with the reaction. Return precautions given. Diagnoses as of 05/01/25 06 Hives Medications dexAMETHasone (PF) (Decadron) injection 10 mg (10 mg IntraMUSCular Given 05/01/25600) famotidine (Pepcid) tablet 20 mg (20 mg Oral Given 05/01/25601) REVAL: CRITICAL CARE TIME CONSULTS: None PROCEDURES: Unless otherwise noted below, none Procedures Patients symptoms are consistent with sepsis, severe sepsis, or septic shock (If yes use .sepsiscoremeasure): FINAL IMPRESSION 1. Hives DISPOSITION Discharge 05/01/2025 06:03:52 AM PATIENT REFERRED TO: No follow-up provider specified. DISCHARGE MEDICATIONS: New Prescriptions METHYLPREDNISOLONE (MEDROL DOSPAK) 4 MG TABLETS Follow schedule on package instructions (Comment: Please note this report has been produced using speech recognition software and may contain errors related to that system including errors in grammar, punctuation, and spelling, as well as words and phrases that may be inappropriate. If there are any questions or concerns please feel free to contact the dictating provider for clarification.) Lala Fischer MD (electronically signed) Emergency Medicine Provider [1] History reviewed. No pertinent past medical history. [2] History reviewed. No pertinent surgical history. [3] No family history on file. [4] Social History Socioeconomic History Marital status: Significant Other Tobacco Use Smoking status: Never Smokeless tobacco: Never Vaping Use Vaping status: Every Day Substances: Nicotine Substance and Sexual Activity Alcohol use: Never Drug use: Never Social Drivers of Health Financial Resource Strain: Low Risk (12/04/2021) Received from [facility] Overall Financial Resource Strain (CARDIA) Difficulty of Paying Living Expenses: Not very hard Food Insecurity: No Food Insecurity (12/04/2021) Received from [facility] Hunger Vital Sign Worried About Running Out of Food in the Last Year: Never true Ran Out of Food in the Last Year: Never true Transportation Needs: No Transportation Needs (12/04/2021) Received from [facility] PRAPARE - Transportation Lack of Transportation (Medical): No Lack of Transportation (Non-Medical): No Physical Activity: Insufficiently Active (12/04/2021) Received from [facility] Exercise Vital Sign Days of Exercise per Week: 3 days Minutes of Exercise per Session: 30 min Stress: Stress Concern Present (12/04/2021) Received from [facility] [employer] - Occupational Stress Questionnaire Feeling of Stress : Very much Social Connections: Socially Isolated (12/04/2021) Received from [facility] Social Connection and Isolation Panel [NHANES] Frequency of Communication with Friends and Family: Twice a week Frequency of Social Gatherings with Friends and Family: Once a week Attends [employer] Services: Never Active Member of Clubs or Organizations: No Attends Club or Organization Meetings: Never Marital Status: Never Housing Stability: Low Risk (12/04/2021) Received from [facility] Housing Stability Vital Sign Unable to Pay for Housing in the Last Year: No Number of Places Lived in the Last Year: 1 Unstable Housing in the Last Year: No Lala Fischer MD 05/01/25 0606 T [facility] 11-26-2023 Telephone encounter Note Pt viewed results on [employer]. Aldo Devine LPN [facility] 11-26-2023 Miscellaneous Notes Pt viewed results on [employer]. Aldo Devine LPN Left message for patient to return call for results.Reema Gaxiola LPN Herpes is negative. documented in this encounter [facility] 11-25-2023 Telephone encounter Note Left message for patient to return call for results.Reema Gaxiola LPN [facility] 11-25-2023 Telephone encounter Note Herpes is negative. [facility] 11-25-2023 Telephone encounter Note Pt was notified of the results. Pt verbalized understanding. Jessica Abreu MA [facility] 11-25-2023 Miscellaneous Notes Pt was notified of the results. Pt verbalized understanding. Jessica Abreu MA Work note placed in [employer] Patient calling to request a work excuse for her appt yesterday. Asking if it can be uploaded to MyChart. Please advise. documented in this encounter [facility] 11-25-2023 Telephone encounter Note Pt was notified of the results. Pt verbalized understanding. Jessica Abreu MA [facility] 11-25-2023 Miscellaneous Notes Pt was notified of the results. Pt verbalized understanding. Jessica Abreu MA Please call patient and let her know she tested positive for bacterial vaginosis. Metronidazole has been sent to [facility] for her. Take this as prescribed. Do not drink alcohol taking this medication. Gonorrhea/chlamydia, yeast and trichomonas were all negative. We are still awaiting the herpes result. We will contact her once this result returns. documented in this encounter [facility] 11-25-2023 Telephone encounter Note Work note placed in [employer] [facility] 11-25-2023 Telephone encounter Note Patient calling to request a work excuse for her appt yesterday. Asking if it can be uploaded to [employer]. Please advise. [facility] 11-25-2023 Telephone encounter Note Please call patient and let her know she tested positive for bacterial vaginosis. Metronidazole has been sent to [facility] for her. Take this as prescribed. Do not drink alcohol taking this medication. Gonorrhea/chlamydia, yeast and trichomonas were all negative. We are still awaiting the herpes result. We will contact her once this result returns. [facility] 11-24-2023 Note HNO ID: [id number] Author: MARK ROMERO PA Service: ? Author Type: Physician Wafer Fabrication Operator Type: Progress Notes Filed: 11/24/2023 14:22 Note Text: This note was created using DFine. Subjective Albaro Fitzpatrick is a 28 year old female. HPI 28-year-old female presents for burning with urination. Patient states that she has burning with urination and irritation/burning on the outside of her vaginal area. She states that she felt a small bump on the vaginal area. She reports that the bump is painful. No history of herpes in the past. She denies any concern for . No concern for STD. No abnormal vaginal discharge. No abdominal pain or pelvic pain. No hematuria. No back pain. No vomiting or fevers. No other complaint. PAST MEDICAL HISTORY Diagnosis Date Acute hepatitis C virus infection without hepatic coma 06/08/2022 Anxiety Bipolar 1 disorder (HCC) Depression Multiple thyroid nodules 10/18/2021 10/18/21: Needs repeat ultrasound annually for the next 5 years Polysubstance abuse (HCC) PTSD (post-traumatic stress disorder) Schizoaffective disorder (HCC) PAST SURGICAL HISTORY Procedure Laterality Date SECTION HX 02/12/2017 X 2; 07/18/2015 TONSILLECTOMY AND ADENOIDECTOMY ALLERGIES Patient has no known allergies. MEDICATIONS PNV no.95/ferrous fum/folic ac ( ORAL) Take by mouth once daily. (Patient not taking: Reported on 11/24/2023) FAMILY HISTORY Problem Relation Age of Onset Thyroid Cancer Mother Heart Mother hole in heart congenital Bipolar disorder Mother Hypertension Father Mental illness Brother No Known Problems Brother No Known Problems Brother No Known Problems Brother No Known Problems Maternal Grandmother Heart Maternal Grandfather Cancer Paternal Grandmother No Known Problems Paternal Grandfather No Known Problems Son No Known Problems Daughter Social History Tobacco Use Smoking status: Every Day Packs/day: 1.00 Years: 10.00 Additional pack years: 0.00 Total pack years: 10.00 Types: Cigarettes Smokeless tobacco: Never Tobacco comments: 09/01/23-down to 5 cigarettes a day Vaping Use Vaping Use: Former Substances: Nicotine Substance Use Topics Alcohol use: Not Currently Comment: Recovery Drug use: Not Currently Types: Heroin, Amphetamines Comment: clean since December 2019 Review of Systems Constitutional: Negative for chills and fever. HENT: Negative for congestion, ear pain and sore throat. Respiratory: Negative for cough and shortness of breath. Cardiovascular: Negative for chest pain. Gastrointestinal: Negative for abdominal pain, diarrhea and vomiting. Genitourinary: Positive for dysuria. Negative for hematuria, pelvic pain, vaginal bleeding, vaginal discharge and vaginal pain. Skin: Positive for wound. Objective BP 110/72 Pulse 77 Temp 36.9 ?C (98.4 ?F) (Tympanic) Resp 18 Wt 54.1 kg (119 lb 4.3 oz) LMP 05/29/2022 (Exact Date) SpO2 99% BMI 18.35 kg/m? Physical Exam Vitals and nursing note reviewed. Exam conducted with a metal rolling mill operator present. Constitutional: General: She is not in acute distress. Appearance: Normal appearance. She is not toxic-appearing. HENT: Nose: Nose normal. Mouth/Throat: Mouth: Mucous membranes are moist. Eyes: Conjunctiva/sclera: Conjunctivae normal. Cardiovascular: Rate and Rhythm: Normal rate and regular rhythm. Pulmonary: Effort: Pulmonary effort is normal. Breath sounds: Normal breath sounds. Abdominal: General: Abdomen is flat. Palpations: Abdomen is soft. Tenderness: There is no abdominal tenderness. There is no guarding. Genitourinary: Exam position: Lithotomy position. Labia: Left: Tenderness and lesion present. Vagina: Vaginal discharge present. Cervix: Discharge present. Adnexa: Right: No tenderness. Left: No tenderness. Comments: Small erythematous lesion noted to left labia minora. Tender to touch. Does not appear vesicular in nature. Appears like a healing wound/scab. Internal exam reveals white discharge from cervix and in vaginal vault. No CMT. No adnexal tenderness. Skin: General: Skin is warm and dry. Neurological: Mental Status: She is alert. Assessment and Plan ASSESSMENT/PLAN: 1. Burning with urination - ICD9: 788.1, ICD10: R30.0 (primary diagnosis) Acute -UA negative. - Send urine for culture - Patient education for prevention given - UA DIP, URINE (POC) - URINE CULTURE - GONORRHEA/CHLAMYDIA NAAT - LAURIE/TRICHOMONAS NAAT - BACTERIAL VAGINOSIS NAAT 2. Vaginal lesion - ICD9: 623.8, ICD10: N89.8 - HSV1,2/VZV NAAT LESION - GONORRHEA/CHLAMYDIA NAAT - LAURIE/TRICHOMONAS NAAT - BACTERIAL VAGINOSIS NAAT -Recommend using Aquaphor or barrier ointment on the scabbed area. -Please treat based on results. If herpes positive, can treat for this. Patient noticed the lesion 1-2 days ago. Diagnosis and treatment plan were discussed and questions were answered to (more content not included)... [facility] 11-24-2023 History of Presen t illness Narrative Images from the original note were not included. This note was created using DFine. Karsten Fitzpatrick is a 28 year old female. HPI 28-year-old female presents for burning with urination. Patient states that she has burning with urination and irritation/burning on the outside of her vaginal area. She states that she felt a small bump on the vaginal area. She reports that the bump is painful. No history of herpes in the past. She denies any concern for . No concern for STD. No abnormal vaginal discharge. No abdominal pain or pelvic pain. No hematuria. No back pain. No vomiting or fevers. No other complaint. PAST MEDICAL HISTORY Diagnosis Date Acute hepatitis C virus infection without hepatic coma 06/08/2022 Anxiety Bipolar 1 disorder (HCC) Depression Multiple thyroid nodules 10/18/2021 10/18/21: Needs repeat ultrasound annually for the next 5 years Polysubstance abuse (HCC) PTSD (post-traumatic stress disorder) Schizoaffective disorder (HCC) PAST SURGICAL HISTORY Procedure Laterality Date SECTION HX 02/12/2017 X 2; 07/18/2015 TONSILLECTOMY & ADENOIDECTOMY <AGE 13 ALLERGIES Patient has no known allergies. MEDICATIONS PNV no.95/ferrous fum/folic ac ( ORAL) Take by mouth once daily. (Patient not taking: Reported on 11/24/2023) FAMILY HISTORY Problem Relation Age of Onset Thyroid Cancer Mother Heart Mother hole in heart congenital Bipolar disorder Mother Hypertension Father Mental illness Brother No Known Problems Brother No Known Problems Brother No Known Problems Brother No Known Problems Maternal Grandmother Heart Maternal Grandfather Cancer Paternal Grandmother No Known Problems Paternal Grandfather No Known Problems Son No Known Problems Daughter Social History Tobacco Use Smoking status: Every Day Packs/day: 1.00 Years: 10.00 Additional pack years: 0.00 Total pack years: 10.00 Types: Cigarettes Smokeless tobacco: Never Tobacco comments: 09/01/23-down to 5 cigarettes a day Vaping Use Vaping Use: Former Substances: Nicotine Substance Use Topics Alcohol use: Not Currently Comment: Recovery Drug use: Not Currently Types: Heroin, Amphetamines Comment: clean since December 2019 Review of Systems Constitutional: Negative for chills and fever. HENT: Negative for congestion, ear pain and sore throat. Respiratory: Negative for cough and shortness of breath. Cardiovascular: Negative for chest pain. Gastrointestinal: Negative for abdominal pain, diarrhea and vomiting. Genitourinary: Positive for dysuria. Negative for hematuria, pelvic pain, vaginal bleeding, vaginal discharge and vaginal pain. Skin: Positive for wound. Objective BP 110/72 Pulse 77 Temp 36.9 C (98.4 F) (Tympanic) Resp 18 Wt 54.1 kg (119 lb 4.3 oz) LMP 05/29/2022 (Exact Date) SpO2 99% BMI 18.35 kg/m Physical Exam Vitals and nursing note reviewed. Exam conducted with a metal rolling mill operator present. Constitutional: General: She is not in acute distress. Appearance: Normal appearance. She is not toxic-appearing. HENT: Nose: Nose normal. Mouth/Throat: Mouth: Mucous membranes are moist. Eyes: Conjunctiva/sclera: Conjunctivae normal. Cardiovascular: Rate and Rhythm: Normal rate and regular rhythm. Pulmonary: Effort: Pulmonary effort is normal. Breath sounds: Normal breath sounds. Abdominal: General: Abdomen is flat. Palpations: Abdomen is soft. Tenderness: There is no abdominal tenderness. There is no guarding. Genitourinary: Exam position: Lithotomy position. Labia: Left: Tenderness and lesion present. Vagina: Vaginal discharge present. Cervix: Discharge present. Adnexa: Right: No tenderness. Left: No tenderness. Comments: Small erythematous lesion noted to left labia minora. Tender to touch. Does not appear vesicular in nature. Appears like a healing wound/scab. Internal exam reveals white discharge from cervix and in vaginal vault. No CMT. No adnexal tenderness. Skin: General: Skin is warm and dry. Neurological: Mental Status: She is alert. Assessment and Plan ASSESSMENT/PLAN: 1. Burning with urination - ICD9: 788.1, ICD10: R30.0 (primary diagnosis) Acute -UA negative. - Send urine for culture - Patient education for prevention given - UA DIP, URINE (POC) - URINE CULTURE - GONORRHEA/CHLAMYDIA NAAT - LAURIE/TRICHOMONAS NAAT - BACTERIAL VAGINOSIS NAAT 2. Vaginal lesion - ICD9: 623.8, ICD10: N89.8 - HSV1,2/VZV NAAT LESION - GONORRHEA/CHLAMYDIA NAAT - LAURIE/TRICHOMONAS NAAT - BACTERIAL VAGINOSIS NAAT -Recommend using Aquaphor or barrier ointment on the scabbed area. -Please treat based on results. If herpes positive, can treat for this. Patient noticed the lesion 1-2 days ago. Diagnosis and treatment plan were discussed and questions were answered to the patient's satisfaction. Pt acknowledged understanding of concepts and follow up plan. Specific signs and symptoms that would indicate the need for higher level of care were discussed in detail warranting prompt ER evaluation. WOODROW Alexander documented in this encounter [facility] 10-28-2023 Miscellaneous Notes Patient calling with complaints of severe abdominal cramping and increased bleeding with menstrual cycle. Bleeding started last night and she is using 1-2 Ultra tampons/hour. She says the cramping is so severe she is feeling a little weak and it's hard to walk Denies blood clots. Does not have a PERCUSSION INSTRUMENT REPAIRER provider. Reviewed triage protocol guidelines with patient. Disposition: ER evaluation. She is agreeable. Wendy Gracia RN Reason for Disposition SEVERE abdominal pain Answer Assessment - Initial Assessment Questions 1. AMOUNT: menstrual bleeding - SEVERE: soaking 2 or more pads/hour for 2 or more hours; 1 menstrual cup every 2 hours; bleeding not contained by pads or continuous red blood from vagina 2. ONSET: yesterday 3. MENSTRUAL PERIOD: regular menstrual cycles. States she had increased cramping LMP one month ago 4. REGULARITY: 5. ABDOMEN PAIN: Do you have any pain? How bad is the pain? (e.g., Scale 1-10; mild, moderate, or severe) - SEVERE (8-10): excruciating pain, doubled over, unable to do any normal activities. Complains of cramping and stabbing pain, most severe with walking, movement 6. : NO 7. : NO 8. HORMONE MEDICINES: NO 9. BLOOD THINNER MEDICINES: No blood thinners 10. CAUSE: Unknown 11. HEMODYNAMIC STATUS: Feels a little weak and walking worsens pain 12. OTHER SYMPTOMS: None reported Protocols used: Vaginal Bleeding - [id number] documented in this encounter [facility] 09-15-2023 Note HNO ID: [id number] Author: ADINA DUGGAN LPCC Service: ? Author Type: Therapist Type: Progress Notes Filed: 09/15/2023 14:33 Note Text: GENERAL PSYCHOLOGY Patient was seen for an initial evaluation. All information is from Patient report except when noted. This evaluation is NOT intended for forensic, disability or child custody purposes. Visit Type:The patient e-signed the Informed Consent for Psychological Evaluation AND Care Form, and the behavioral health care insurance benefits, fees for service, emergency procedures, and the limits of confidentiality that may pertain with any given case were discussed with the patient. The patient was given a copy of the consent form on [employer]. The patient consented to a virtual visit and their location was confirmed. Informed consent was discussed and signed by the patient. PRESENT: Self AGE: [age] year old RACE: White MARITAL STATUS: Single (never ) CHILDREN: Yes, daughter age 8 and son age 6. 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 No current facility-administered medications for this visit. ALLERGIES No Known Allergies REFERRAL SOURCE: [facility] Physician - Dr. Mariee CHIEF COMPLAINT: Today I am having a good day. I do have a long history of having a mental health disorder. I just don't want to get bad again. I am constantly drained, I want to just sleep but I have periods where I cannot sit still. I am depressed and anxious to walk out my door. Sleep: spotty. Past week, waking up every hour. Interest: no interest Guilt: quite a bit- I have moms guilt, survivors guilt. Energy: fluctuates with mood or stress Concentration: fluctuates Appetite: poor, states that she eats 1 meal per day Psychomotor activity: psychomotor activity was WNL. Suicide: None Phobias: no irrational fears Memory: Poor- states that this could be due to her hx of drug use. Anxiety: severe I constantly shake. I don't drink enough alcohol to shake like that. I am worried about everything, always looking over my shoulder. Obsessions: none Compulsions: Things need to be in my order. 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 She states that she was a mess- states that she had a drug/alcohol problem during this time. She states that she went and shot up a bunch of heroin. Risk Factors: None Protective Factors: Effective and accessible clinical care FAMILY PSYCHIATRIC HISTORY: Mother-Bipolar, depression and anxiety Brother- Depression and anxiety Younger brother- depression Patient was adopted by her father at the age of 6. My bio dad from liver problems. SUBSTANCE USE HISTORY: Nicotine: None. Patient states that she quit smoking today. Prior to this, she would smoke 1 pack per day. Caffeine: Rojsa, drinks a 24 oz bottle /day Alcohol: Current usage maybe once per month. Marijuana: No history of use or dependence Cocaine: No history of use or dependence Opiods: No history of use or dependence Patient reports long hx of heroin use. Sobriety date 01/07/2020 PFSH: Albaro Fitzpatrick is the middle of 4 siblings. The patient was born and raised in [place], [place] . She completed High school. She described her childhood as I know my parents loved me to . But things happened to me as a child. The patient lives with her boyfriend. Service: None Legal: Pt. denied any past legal history Spirituality/Jainism: Non-Anglican PATIENT DATA: Generalized Anxiety Disorder Scale (DI-7) DI - 7 SCORES 09/15/2023 DI-7 Score 21 (0-4) minimal anxiety, (5-9) mild anxiety, (10-14) moderate anxiety, (15-21) severe anxiety Patient Health Questionnaire (PHQ-9) PHQ-9 12/04/2021 12/10/2021 09/15/2023 Score 23 24 22 (0-4) minimal depression, (5-9) mild depression, (10-14) moderate depression, (15-19) moderately severe depression, (20-27) severe (more content not included)... [facility] 09-15-2023 History of Presen t illness Narrative GENERAL PSYCHOLOGY Patient was seen for an initial evaluation. All information is from Patient report except when noted. This evaluation is NOT intended for forensic, disability or child custody purposes. Visit Type:The patient e-signed the Informed Consent for Psychological Evaluation & Care Form, and the behavioral health care insurance benefits, fees for service, emergency procedures, and the limits of confidentiality that may pertain with any given case were discussed with the patient. The patient was given a copy of the consent form on [employer]. The patient consented to a virtual visit and their location was confirmed. Informed consent was discussed and signed by the patient. PRESENT: Self AGE: [age] year old RACE: White MARITAL STATUS: Single (never ) CHILDREN: Yes, daughter age 8 and son age 6. 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 No current facility-administered medications for this visit. ALLERGIES No Known Allergies REFERRAL SOURCE: [facility] Physician - Dr. Mariee CHIEF COMPLAINT: Today I am having a good day. I do have a long history of having a mental health disorder. I just don't want to get bad again. I am constantly drained, I want to just sleep but I have periods where I cannot sit still. I am depressed and anxious to walk out my door. Sleep: spotty. Past week, waking up every hour. Interest: no interest Guilt: quite a bit- I have moms guilt, survivors guilt. Energy: fluctuates with mood or stress Concentration: fluctuates Appetite: poor, states that she eats 1 meal per day Psychomotor activity: psychomotor activity was WNL. Suicide: None Phobias: no irrational fears Memory: Poor- states that this could be due to her hx of drug use. Anxiety: severe I constantly shake. I don't drink enough alcohol to shake like that. I am worried about everything, always looking over my shoulder. Obsessions: none Compulsions: Things need to be in my order. 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 She states that she was a mess- states that she had a drug/alcohol problem during this time. She states that she went and shot up a bunch of heroin. Risk Factors: None Protective Factors: Effective and accessible clinical care FAMILY PSYCHIATRIC HISTORY: Mother-Bipolar, depression and anxiety Brother- Depression and anxiety Younger brother- depression Patient was adopted by her father at the age of 6. My bio dad from liver problems. SUBSTANCE USE HISTORY: Nicotine: None. Patient states that she quit smoking today. Prior to this, she would smoke 1 pack per day. Caffeine: Rojas, drinks a 24 oz bottle /day Alcohol: Current usage maybe once per month. Marijuana: No history of use or dependence Cocaine: No history of use or dependence Opiods: No history of use or dependence Patient reports long hx of heroin use. Sobriety date 01/07/2020 PFSH: Albaro Fitzpatrick is the middle of 4 siblings. The patient was born and raised in [place], [place] . She completed High school. She described her childhood as I know my parents loved me to . But things happened to me as a child. The patient lives with her boyfriend. Service: None Legal: Pt. denied any past legal history Spirituality/Jainism: Non-Anglican PATIENT DATA: Generalized Anxiety Disorder Scale (DI-7) DI - 7 SCORES 09/15/2023 DI-7 Score 21 (0-4) minimal anxiety, (5-9) mild anxiety, (10-14) moderate anxiety, (15-21) severe anxiety Patient Health Questionnaire (PHQ-9) PHQ-9 12/04/2021 12/10/2021 09/15/2023 Score 23 24 22 (0-4) minimal depression, (5-9) mild depression, (10-14) moderate depression, (15-19) moderately severe depression, (20-27) severe depression Mental Status Exam: General/Sensorium: AO X 4 - Appearance: Appears older than stated age, Casually dressed and Unkempt - Eye Contact: Appropriate eye contact - Demeanor: Appropriately interactive - Motor Activity: Normal - Speech: Lisp - Mood: Anxious and Reports feeling depressed - Affect: Euthymic - Thought Process: Linear, logical, and goal-directed - Associations: Normal - Thought Content: Appropriate with no SI/HI/AVH and Talking about future goals or plans - Perceptions: The patient does not appear internally stimulated - Cognition: Appears intact in regards to memory, attention/concentration, fund of knowledge and language skills - Insight: Good - Judgment: Good - SUMMARY IMPRESSION: Patient was engaged throughout assessment, appeared to be a good historian, and appears to have moderate insight. During the assessment patient reports feelings of depression and anxiety. Patient recognizes the need for ongoing care and was open to meeting with a psychiatry provider. Patient appears generally motivated to get better. DIAGNOSIS: PRIMARY: 1: Mood Disorder Bipolar I Disorder, Most Recent Episode Mixed Mild Other: Schizoaffective Disorder PROVISIONAL: None GOALS/OBJECTIVES/INTERVENTIONS: 1. Contact information for [facility] was provided. Patient was advised to call and schedule with a psychiatry provider. 2. Should a mental health emergency arise, patient was instructed to contact 911 or go to the local ER. Contact information for [facility] was provided and patient was encouraged to call if further questions or concerns arise. RUPESH Medina-S I have communicated my name and active licensure. The patient's identity and physical location were verified at the time of this visit. Either the patient or their legal phlebotomy services representative has been informed of the risks and benefits of -- and alternatives to -- treatment through a remote evaluation and consents to proceed with the evaluation remotely. Visit performed via Virtual Visit Informed consent to deliver services discussed / virtual visit completed in [employer]/zoom and lasted 30 minutes Patient aware of benefits of virtual visit services and is in agreement to participate Originating site for client [place] Originating site for provider [place] Site appropriate for privacy No equipment failures, provided psychotherapy documented in this encounter [facility] 09-02-2023 Miscellaneous Notes Unable to schedule patient, patient has [employer] insurance. Called and spoke to patient and informed her that she would need to be cleared before we can schedule appointment. Patient has phone call with PFA's on Thursday. Will check referral on Thursday after patient talks to PFA. Will schedule appointment when/if patient is cleared. ----- Message from RUPESH Medina sent at 09/02/2023 10:56 AM EST ----- Regarding: Appointment Hello, Could you please schedule this patient for an initial virtual appointment with me on 09/15 at 2:00 pm Thank you, Adina documented in this encounter [facility] 09-02-2023 Miscellaneous Notes Behavioral Health Social Work Progress Note Patient identified for [facility] from: PCP Reason for referral: [facility] Assessment Behavioral Health Resources: Psychiatry med management [facility] encounter type: Telephone Encounter Attempts to Outreach: 1 attempt Referral made: Psychiatry - Internal Psychiatry-Internal referral type: Medication Management Final Disposition: Care established with Patient Discharged?: No Patient reported that caregiver was able to meet their needs today?: Yes therapist contact patient to discuss behavioral health services with patient. Scheduled [facility] assessment with patient for 09/15 at 2:00 pm MOISES Medina September 02, 2023 documented in this encounter [facility] 09-01-2023 Note HNO ID: [id number] Author: JANUARY CASTAÑEDA APRN.LOG ROPER Service: ? Author Type: Nurse Practitioner Type: Progress Notes Filed: 09/02/2023 08:54 Note Text: CC: Patient presents with: weight concerns BRIAN Fitzpatrick is a 28 year old female who presents today for above. Patient reports her weight is 108 pounds on her scale at home however today in the office she weighed 120 lbs. She is still concerned that she is underweight and can't seem to gain no matter what she does. Also reports chronic fatigue for the past couple years. She was treated for Hepatitis C in 2021 and repeat testing February 2023 was negative. She does admit to unprotected sexual intercourse since then. Denies chance of . History of IV drug abuse but has been clean since 2019. Denies alcohol use. Smokes about 5 cigarettes a day. She has bipolar 1 disorder, schizoaffective disorder and depression that is not treated. She is currently in counseling however admits to often feeling depressed and anxious. Denies SI or HI. She has been to multiple psychiatrists along with inpatient admissions in the past and on numerous medications that either were ineffective or had too many side effects. Psychiatrists were constantly changing her medications and this made her feel like a guinea pig so she eventually gave up on treatment. Review of Systems Constitutional: Negative for appetite change, chills, diaphoresis and fever. Respiratory: Negative for cough, shortness of breath and wheezing. Cardiovascular: Negative for chest pain, palpitations and leg swelling. Gastrointestinal: Negative for abdominal pain, blood in stool, constipation, diarrhea, nausea and vomiting. Endocrine: Positive for cold intolerance. Negative for heat intolerance, polydipsia, polyphagia and polyuria. Musculoskeletal: Negative for arthralgias, joint swelling and myalgias. Skin: Negative for rash. Neurological: Negative for dizziness, tremors, syncope, weakness, light-headedness, numbness and headaches. Hematological: Negative for adenopathy. Does not bruise/bleed easily. Psychiatric/Behavioral: Positive for decreased concentration, dysphoric mood and sleep disturbance. Negative for hallucinations, self-injury and suicidal ideas. The patient is nervous/anxious and is hyperactive. PAST MEDICAL HISTORY Diagnosis Date Acute hepatitis C virus infection without hepatic coma 06/08/2022 Anxiety Bipolar 1 disorder (HCC) Depression Multiple thyroid nodules 10/18/2021 10/18/21: Needs repeat ultrasound annually for the next 5 years Polysubstance abuse (HCC) PTSD (post-traumatic stress disorder) Schizoaffective disorder (HCC) PAST SURGICAL HISTORY Procedure Laterality Date SECTION HX 02/12/2017 X 2; 07/18/2015 TONSILLECTOMY AND ADENOIDECTOMY ALLERGIES Patient has no known allergies. MEDICATIONS PNV no.95/ferrous fum/folic ac ( ORAL) Take by mouth once daily. FAMILY HISTORY Problem Relation Age of Onset Thyroid Cancer Mother Heart Mother hole in heart congenital Bipolar disorder Mother Hypertension Father Mental illness Brother No Known Problems Brother No Known Problems Brother No Known Problems Brother No Known Problems Maternal Grandmother Heart Maternal Grandfather Cancer Paternal Grandmother No Known Problems Paternal Grandfather No Known Problems Son No Known Problems Daughter Social History Tobacco Use Smoking status: Never Smokeless tobacco: Never Vaping Use Vaping Use: Some days Substances: Nicotine Substance Use Topics Alcohol use: Not Currently Comment: Recovery Drug use: Not Currently Types: Heroin, Amphetamines Comment: clean since December 2019 BP 122/66 Pulse 94 Resp 18 Wt 54.4 kg (120 lb) LMP 05/29/2022 (Exact Date) SpO2 98% BMI 18.46 kg/m? Physical Exam Vitals reviewed. Constitutional: Appearance: She is underweight. She is not ill-appearing or toxic-appearing. Eyes: Conjunctiva/sclera: Conjunctivae normal. Neck: Thyroid: No thyroid mass, thyromegaly or thyroid tenderness. Cardiovascular: Rate and Rhythm: Normal rate and regular rhythm. Pulses: Normal pulses. Heart sounds: Normal heart sounds. No murmur heard. Pulmonary: Effort: Pulmonary effort is normal. Breath sounds: Normal breath sounds and air entry. No wheezing, rhonchi or rales. Abdominal: General: There is no distension. Palpations: Abdomen is soft. There is no hepatomegaly, splenomegaly or mass. Tenderness: There is no abdominal tenderness. Musculoskeletal: Right lower leg: No edema. Left lower leg: No edema. Lymphadenopathy: Cervical: No cervical adenopathy. Upper Body: Right upper body: No supraclavicular adenopathy. Left upper body: No supraclavicular adenopathy. Skin: General: Skin is warm and dry. Coloration: Skin is not jaundiced. Neurological: Mental Status: She is alert. Psychiatric: Attention and Perception: Attention normal. Moo (more content not included)... [facility] 09-01-2023 History of Presen t illness Narrative CC: Patient presents with: weight concerns BRIAN Fitzpatrick is a 28 year old female who presents today for above. Patient reports her weight is 108 pounds on her scale at home however today in the office she weighed 120 lbs. She is still concerned that she is underweight and can't seem to gain no matter what she does. Also reports chronic fatigue for the past couple years. She was treated for Hepatitis C in 2021 and repeat testing February 2023 was negative. She does admit to unprotected sexual intercourse since then. Denies chance of . History of IV drug abuse but has been clean since 2019. Denies alcohol use. Smokes about 5 cigarettes a day. She has bipolar 1 disorder, schizoaffective disorder and depression that is not treated. She is currently in counseling however admits to often feeling depressed and anxious. Denies SI or HI. She has been to multiple psychiatrists along with inpatient admissions in the past and on numerous medications that either were ineffective or had too many side effects. Psychiatrists were constantly changing her medications and this made her feel like a guinea pig so she eventually gave up on treatment. Review of Systems Constitutional: Negative for appetite change, chills, diaphoresis and fever. Respiratory: Negative for cough, shortness of breath and wheezing. Cardiovascular: Negative for chest pain, palpitations and leg swelling. Gastrointestinal: Negative for abdominal pain, blood in stool, constipation, diarrhea, nausea and vomiting. Endocrine: Positive for cold intolerance. Negative for heat intolerance, polydipsia, polyphagia and polyuria. Musculoskeletal: Negative for arthralgias, joint swelling and myalgias. Skin: Negative for rash. Neurological: Negative for dizziness, tremors, syncope, weakness, light-headedness, numbness and headaches. Hematological: Negative for adenopathy. Does not bruise/bleed easily. Psychiatric/Behavioral: Positive for decreased concentration, dysphoric mood and sleep disturbance. Negative for hallucinations, self-injury and suicidal ideas. The patient is nervous/anxious and is hyperactive. PAST MEDICAL HISTORY Diagnosis Date Acute hepatitis C virus infection without hepatic coma 06/08/2022 Anxiety Bipolar 1 disorder (HCC) Depression Multiple thyroid nodules 10/18/2021 10/18/21: Needs repeat ultrasound annually for the next 5 years Polysubstance abuse (HCC) PTSD (post-traumatic stress disorder) Schizoaffective disorder (HCC) PAST SURGICAL HISTORY Procedure Laterality Date SECTION HX 02/12/2017 X 2; 07/18/2015 TONSILLECTOMY & ADENOIDECTOMY <AGE 13 ALLERGIES Patient has no known allergies. MEDICATIONS PNV no.95/ferrous fum/folic ac ( ORAL) Take by mouth once daily. FAMILY HISTORY Problem Relation Age of Onset Thyroid Cancer Mother Heart Mother hole in heart congenital Bipolar disorder Mother Hypertension Father Mental illness Brother No Known Problems Brother No Known Problems Brother No Known Problems Brother No Known Problems Maternal Grandmother Heart Maternal Grandfather Cancer Paternal Grandmother No Known Problems Paternal Grandfather No Known Problems Son No Known Problems Daughter Social History Tobacco Use Smoking status: Never Smokeless tobacco: Never Vaping Use Vaping Use: Some days Substances: Nicotine Substance Use Topics Alcohol use: Not Currently Comment: Recovery Drug use: Not Currently Types: Heroin, Amphetamines Comment: clean since December 2019 BP 122/66 Pulse 94 Resp 18 Wt 54.4 kg (120 lb) LMP 05/29/2022 (Exact Date) SpO2 98% BMI 18.46 kg/m Physical Exam Vitals reviewed. Constitutional: Appearance: She is underweight. She is not ill-appearing or toxic-appearing. Eyes: Conjunctiva/sclera: Conjunctivae normal. Neck: Thyroid: No thyroid mass, thyromegaly or thyroid tenderness. Cardiovascular: Rate and Rhythm: Normal rate and regular rhythm. Pulses: Normal pulses. Heart sounds: Normal heart sounds. No murmur heard. Pulmonary: Effort: Pulmonary effort is normal. Breath sounds: Normal breath sounds and air entry. No wheezing, rhonchi or rales. Abdominal: General: There is no distension. Palpations: Abdomen is soft. There is no hepatomegaly, splenomegaly or mass. Tenderness: There is no abdominal tenderness. Musculoskeletal: Right lower leg: No edema. Left lower leg: No edema. Lymphadenopathy: Cervical: No cervical adenopathy. Upper Body: Right upper body: No supraclavicular adenopathy. Left upper body: No supraclavicular adenopathy. Skin: General: Skin is warm and dry. Coloration: Skin is not jaundiced. Neurological: Mental Status: She is alert. Psychiatric: Attention and Perception: Attention normal. Mood and Affect: Affect normal. Mood is anxious. Speech: Speech normal. Behavior: Behavior normal. Behavior is cooperative. Thought Content: Thought content normal. Judgment: Judgment normal. DATA REVIEWED: Most recent labs ASSESSMENT/PLAN: 1. Fatigue, unspecified type - ICD9: 780.79, ICD10: R53.83 (primary diagnosis) Likely due to untreated mental health disorder. Evaluate furtherwith labs: - CBC - COMP METABOLIC PANEL - HEP REMOTE PANEL BL - HIV 1 2 COMBO(AG/AB),WITH REFLEX TO DIFFERENTIATION - TSH BLD - VITAMIN D 25 HYDROXY See plans below 2. Mildly underweight adult - ICD9: 783.22, ICD10: R63.6 BMI 18.46. Weight per office scale has been stable, patient's home scale weight of 108 lbs is likely not accurate as she has not noticed any change in how her clothes fit. Discussed healthy strategies to increase weight. 3. History of hepatitis C - ICD9: V12.09, ICD10: Z86.19 Patient was treated for Hepatitis C successfully however she does admit to unprotected sex since then. Check for STD's including Hepatitis. - HEP REMOTE PANEL BL 4. Screen for STD (sexually transmitted disease) - ICD9: V74.5, ICD10: Z11.3 As above - HEP REMOTE PANEL BL - HIV 1 2 COMBO(AG/AB),WITH REFLEX TO DIFFERENTIATION - SYPHILIS TOTAL W/REFLEX 5. Schizoaffective disorder, unspecified type (HCC) - ICD9: 295.70, ICD10: F25.9 Patient agrees that she needs treatment however very hesitant about going to another psychiatrist. Discussed seeing supervisor forming department at this office and she is interested. Will consult behavorial rn social work to facilitate appointment - CONSULT TO [facility] 6. Bipolar 1 disorder (HCC) - ICD9: 296.7, ICD10: F31.9 As above - CONSULT TO [facility] Prescription instructions reviewed with patient as applicable. Potential red flag symptoms discussed with the patient. Reviewed appropriate action plan to take if red flag symptoms occur. Patient agreeable to treatment plan. January Castañeda APRN.LOG ROPER documented in this encounter [facility] 08-15-2022 History of Presen t illness Narrative Radiology Service Progress Note PATIENT NAME: Albaro Fitzpatrick DATE OF SERVICE: August 15, 2022 TIME: 8:52 AM PATIENT IDENTITY VERIFICATION COMPLETED USING TWO (2) IDENTIFIERS: Name and Date of confirmed by patient verbally. FALL SCREENING: Has the patient had 2 falls in the last year or 1 fall with injury or currently using an Ambulatory Assistive Device (Walker, Cane, Wheelchair, Crutches, etc.)? No PATIENT GENDER DATA: Female. status: : No status: NO. PATIENT RELEVANT IMPLANT DATA REVIEWED: Not Applicable RADIOLOGY DEPARTMENT: Ultrasound PERIPHERAL IV DATA: Not applicable SIGNED BY: Ernestina Collins RDMS August 15, 2022 8:52 AM documented in this encounter [facility] 06-10-2022 Miscellaneous Notes Pt [place]. PSS please contact Patient to schedule. Bhavani Smith LPN ----- Message from Doron Mariee MD sent at 06/08/2022 12:44 AM EST ----- Active viral Hepatitis C. Consult hepatology or gastroenterology. documented in this encounter [facility] 06-05-2022 History of Presen t illness Narrative This note was created using DFine. Karsten Fitzpatrick is a 26 year old female. She started noticing looser clothing 1 month ago. Her mother noted significant weight loss 2 weeks ago. She had no change in diet, or activity, or work. She had ongoing issues with fatigue. She was no longer taking her medication for bipolar and was doing okay. Review of Systems Constitutional: Positive for fatigue and unexpected weight change. Negative for activity change, appetite change, chills, diaphoresis and fever. HENT: Negative. Respiratory: Negative. Cardiovascular: Negative. Gastrointestinal: Negative for abdominal pain, blood in stool, constipation, diarrhea, nausea and vomiting. Endocrine: Negative. Genitourinary: Negative. Musculoskeletal: Negative. Skin: Negative. Neurological: Negative. Psychiatric/Behavioral: Negative. ACTIVE PROBLEM LIST Enlarged Thyroid Multiple Thyroid Nodules Polysubstance Abuse (Hcc) Depression Anxiety Bipolar 1 Disorder (Hcc) Schizoaffective Disorder (Hcc) Social History Tobacco Use Smoking status: Never Smokeless tobacco: Never Vaping Use Vaping Use: Some days Substances: Nicotine Substance Use Topics Alcohol use: Not Currently Comment: Recovery Drug use: Not Currently Types: Heroin, Amphetamines Comment: clean since December 2019 No current outpatient medications on file. No current facility-administered medications for this visit. Objective BP 110/68 (BP Site: Right Arm, BP Position: Sitting, BP Cuff Size: Large Adult) Pulse 76 Temp 36.9 C (98.4 F) (Temporal) Resp 20 Ht 171.7 cm (5' 7.6) Wt 56.7 kg (125 lb) BMI 19.23 kg/m Physical Exam Constitutional: Appearance: Normal appearance. HENT: Head: Normocephalic. Eyes: General: No scleral icterus. Conjunctiva/sclera: Conjunctivae normal. Neck: Thyroid: No thyroid mass or thyromegaly. Cardiovascular: Rate and Rhythm: Normal rate and regular rhythm. Heart sounds: No murmur heard. No gallop. Pulmonary: Breath sounds: Normal breath sounds. Abdominal: Palpations: Abdomen is soft. There is no mass. Tenderness: There is no abdominal tenderness. Musculoskeletal: General: No tenderness. Right lower leg: No edema. Left lower leg: No edema. Lymphadenopathy: Cervical: No cervical adenopathy. Skin: Findings: No rash. Neurological: General: No focal deficit present. Mental Status: She is alert. Psychiatric: Mood and Affect: Mood normal. Behavior: Behavior normal. Assessment and Plan 1. Weight loss, unintentional - ICD9: 783.21, ICD10: R63.4 (primary diagnosis) - CBC - COMP METABOLIC PANEL - TSH BLD - Request PAP smear record. 2. Screening for HIV without presence of risk factors - ICD9: V73.89, ICD10: Z11.4 - HIV 1 2 COMBO(AG/AB),WITH REFLEX TO DIFFERENTIATION 3. Encounter for hepatitis C screening test for low risk patient - ICD9: V73.89, ICD10: Z11.59 - HEP C AB IA W/CONF SCRN Doron Mariee MD documented in this encounter [facility] 12-11-2021 History of Presen t illness Narrative This note was created using DFine. Subjective Albaro Fitzpatrick is a 26 year old female I am seeing for the first time. She established care here in September. She had a history of anxiety, depression, bipolar disorder, PTSD, schizoaffective disorder. She was admitted in [place] a few years ago for suicidal concerns. She was discharged on various medications but did not follow thru cause they either made her feel like a zombie or did not work. She felt he moods were clashing with elevated and depressed mood. [facility] but she felt like an experiment, as her medications kept getting switched around. She recalled good effects with Seroquel. Hydroxyzine made her too lightheaded. She did not recall other multiple medications tried. She denied current suicide ideations. She can be irritable with non specific thoughts of violence at times. 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 She was a single mother raising 2 children. She saw [place] [facility] last year and there was notation of clonidine, doxepin, hydroxyzine, Quetiapine, and venlafaxine. Fluoxetine was also listed in the past. She was seen by our BRAND MARKETING COORDINATOR and referred for psychiatric care, but she only got a list of practices. She reached out to [place] one month ago, but had not heard back. Review of Systems Constitutional: Negative. Respiratory: Negative. Cardiovascular: Negative. Neurological: Negative. Psychiatric/Behavioral: Positive for sleep disturbance. Negative for agitation, self-injury and suicidal ideas. PAST MEDICAL HISTORY Diagnosis Date Anxiety Bipolar 1 disorder (HCC) Depression Polysubstance abuse ([facility]) PTSD (post-traumatic stress disorder) Schizoaffective disorder ([facility]) Social History Tobacco Use Smoking status: Never Smoker Smokeless tobacco: Never Used Vaping Use Vaping Use: Some days Substances: Nicotine Substance Use Topics Alcohol use: Not Currently Comment: Recovery Drug use: Not Currently Types: Heroin, Amphetamines Comment: clean since December 2019 Objective BP 108/64 (BP Site: Left Arm, BP Position: Sitting, BP Cuff Size: Regular Adult) Pulse 80 Temp 36.8 C (98.2 F) (Temporal Artery) Resp 16 Wt 62.1 kg (137 lb) BMI 21.46 kg/m Physical Exam Constitutional: General: She is not in acute distress. Appearance: She is not ill-appearing. Pulmonary: Effort: Pulmonary effort is normal. Neurological: General: No focal deficit present. Mental Status: She is alert. Motor: No tremor. Psychiatric: Attention and Perception: Perception normal. Mood and Affect: Mood is anxious. Speech: Speech normal. Behavior: Behavior normal. Thought Content: Thought content does not include homicidal or suicidal plan. Cognition and Memory: Cognition normal. DI-7 ANXIETY SCALE 12/10/2021 FEELING NERVOUS,ANXIOUS,OR ON EDGE 3 Nearly every day NOT BEING ABLE TO STOP OR CONTROL WORRYING 3 Nearly every day WORRYING TOO MUCH ABOUT DIFFERENT THINGS 3 Nearly every day TROUBLE RELAXING 3 Nearly every day BEING SO RESTLESS THAT IT'S HARD TO SIT STILL 2 Over half the days BEING EASILY ANNOYED OR IRRITABLE 3 Nearly every day FEELING AFRAID IF SOMETHING AWFUL MIGHT HAPPEN 2 Over half the days GAD7 SCORE 19 IF YOU CHECKED OFF ANY PROBLEMS Very difficult CP PHQ9 12/10/2021 Little interest or pleasure 3 - Nearly every day Feeling down, depressed, hopeless 3 - Nearly every day Trouble falling or staying asleep, sleeping too much 3 - nearly every day Feeling tired, having little energy 3 - Nearly every day Poor appetite or overeating 2 - More than half the days Feeling bad about yourself, failure or you have let yourself/family down 3 - Nearly every day Trouble concentrating on things 3 - Nearly every day Moving or speaking so slowly, or fidgety or restless 3 - Nearly every day Thoughts that you would be better off , or of hurting yourself in some way 1 - Several days How difficult have these problems made things Very difficult Interpretation of Total Score 20-27 Severe depression Assessment and Plan 1. Schizoaffective disorder, bipolar type (HCC) - ICD9: 295.70, ICD10: F25.0 (primary diagnosis) Shared Medical Decision Making was done. She recalled benefit from quetiapine. Risks: Possible side effects were discussed. Possible interactions: n/a. Warnings: increased or worse symptoms. Patient contract for safety. She has Crisis Hotline saved on her contacts. - CONSULT TO PSYCHIATRY - QUETIAPINE ER 150 MG TABLET,EXTENDED RELEASE 24 HR. Take one(1) tablet daily at bedtime. Further adjustments will be per psychiatry. 2. Screening for cervical cancer - ICD9: V76.2, ICD10: Z12.4 - CONSULT TO GYNECOLOGY During this patient visit I have spent approximately 30 minutes out of 30 in counseling regarding treatment options, medications and coordinating care and coordinating care. Doron Mariee MD documented in this encounter [facility] 10-21-2021 Miscellaneous Notes BEHAVIORAL HEALTH SOCIAL WORK CONSULT NOTE Service Date: October 21, 2021 Patient was identified by name and Patient: Albaro Smith[address] [facility] [place] [address] (home) PCP: Doron Mariee MD [address] [facility] [id number] Assessment: [facility] called the pt to discuss behavioral health services and offer resources, etc. Pt was looking for resources close to home. SW discussed options for psychiatry via mychart. [facility] also gave the pt SW contact information for future resources, etc. Pt thanked the [facility] for assistance. Medications: Current Outpatient Medications on File Prior to Visit Medication Sig doxycycline (VIBRA-TABS) 100 mg tablet Take 100 mg by mouth twice daily. No current facility-administered medications on file prior to visit. Curbside: No Screening Tools: No Substance Use / Abuse: No Outcome / Plan / Referrals: Internal Referrals : No Reason for External Referrals : Increased psychosocial needs, Wait is too long and Location Intervention: Supportive Listening Education Provided referral information Resources Provided: Medication Management Time Spent: 15 minutes CHARLETTE Kaplan-S documented in this encounter [facility] 10-18-2021 History of Past i llness Narrative Problem Noted Date Resolved Date Enlarged thyroid 10/18/2021 06/05/2022 documented as of this encounter (statuses as of 06/05/2022) [facility] History of Past illness Narrative* Problem Noted Date Resolved Date Enlarged thyroid 10/18/2021 06/05/2022 documented as of this encounter (statuses as of 06/10/2022) [facility] History of Past illness Narrative* Problem Noted Date Diagnosed Date Resolved Date Enlarged thyroid 10/18/2021 06/05/2022 documented as of this encounter (statuses as of 05/25/2023) [facility] History of Past illness Narrative* Problem Noted Date Diagnosed Date Resolved Date Enlarged thyroid 10/18/2021 06/05/2022 documented as of this encounter (statuses as of 09/02/2023) [facility] History of Past illness Narrative* Problem Noted Date Diagnosed Date Resolved Date Enlarged thyroid 10/18/2021 06/05/2022 documented as of this encounter (statuses as of 09/02/2023) [facility] History of Past illness Narrative* Problem Noted Date Diagnosed Date Resolved Date Enlarged thyroid 10/18/2021 06/05/2022 documented as of this encounter (statuses as of 09/02/2023) [facility] History of Past illness Narrative* Problem Noted Date Diagnosed Date Resolved Date Enlarged thyroid 10/18/2021 06/05/2022 documented as of this encounter (statuses as of 09/04/2023) [facility] History of Past illness Narrative* Problem Noted Date Diagnosed Date Resolved Date Enlarged thyroid 10/18/2021 06/05/2022 documented as of this encounter (statuses as of 09/16/2023) [facility] History of Past illness Narrative* Problem Noted Date Diagnosed Date Resolved Date Enlarged thyroid 10/18/2021 06/05/2022 documented as of this encounter (statuses as of 10/29/2023) [facility] Miscellaneous Notes* Telephone Encounter - Apryl Young - 10/16/2021 2:27 PM EDT Letter mailed. Apryl Torres Pss * Telephone Encounter - CHARLETTE Kaplan - 10/15/2021 10:36 AM EDT .`no answer, vm full [facility] was unable to reach patient via phone. [facility] will send letter out to patient. [facility]* Diagnosis Enlarged thyroid Goiter, unspecified [facility] noteNo assessment information availableWOhio[facility] Work Phone: Evaluation note* Diagnosis Schizoaffective disorder, bipolar type (HCC)- Primary Schizoaffective disorder, unspecified condition Screening for cervical cancer Screening for malignant neoplasm of the cervix [facility] Diagnosis Weight loss, unintentional- Primary Loss of weight Screening for HIV without presence of risk factors Special screening examination for other specified viral diseases Encounter for hepatitis C screening test for low risk patient [facility] Diagnosis Fatigue, unspecified type- Primary Mildly underweight adult History of hepatitis C Personal history of other infectious and parasitic disease Screen for STD (sexually transmitted disease) Screening examination for venereal disease Schizoaffective disorder, unspecified type (HCC) Bipolar 1 disorder (HCC) Bipolar I disorder, most recent episode (or current) unspecified documented in this encounter [facility] note* Diagnosis Mild mixed bipolar I disorder (HCC)- Primary Bipolar I disorder, most recent episode (or current) mixed, mild [facility]* Diagnosis Burning with urination- Primary Dysuria Vaginal lesion Other specified noninflammatory disorder of vagina documented in this encounter [facility] note* Diagnosis Hives- Primary Unspecified urticaria documented in this encounter [facility] note* Diagnosis Threatened - Primary documented in this encounter [facility] Discharge instructions Additional Instructions Urine with infection and blood. Culture sent. Take antibiotics as prescribed. CT scan negative for kidney stones. Thickened bladder infection versus decompression. Follow-up with urology for outpatient evaluation.[facility] Work Phone: Reason for referral (narrative)* Diagnostic Procedure Only (Routine) - Closed Specialty Diagnoses / Procedures Referred By Contdori iniguez Referred To Contact US IMAGING Diagnoses Enlarged thyroid Procedures US THYROID/PARATHYROID US SOFT TISSUE HEAD & NECK REAL TIME January Garcia APRN.[employer] [address] [place] [address] Us Imaging Referral ID Status Reason Start Date Expiration Date V isits Requested Visits Authorized [id number] Closed Auto-Generate d Referral 10/11/2021 11/10/2022 1 1 [facility] for visit Narrative* Diagnostic Procedure Only (Routine) - Closed Specialty Diagnoses / Procedures Referred By Contac t Referred To Contact US IMAGING Diagnoses Enlarged thyroid Procedures US THYROID/PARATHYROID US SOFT TISSUE HEAD & NECK REAL TIME IMJanuary Reynaga APRN.CNP [address] [place] [address] Us Imaging Referral ID Status Reason Start Date Expiration Date V isits Requested Visits Authorized [id number] Closed Auto-Generate d Referral 10/11/2021 11/10/2022 1 1 [facility] Chief Complaint and Reason for Visit Chief Complaint my toe is turning b lack SWELLING Chief Complaint SWELLING URINARY SYMPTOMS Family History No Family History Records Found Relationship Condition Age at Onset Recorded Date/T jemima mother Malignant neoplasm Unknown Disorder of thyroid Unknown Anxiety and depression Unknown Unknown Advance Directives No Advanced Directives Records Found Advance Directive Response Recorded Date/ Time Advance Directives No May 2:52pm Living Will No November 06, 2021 1:25pm Power of Frame Runner No November 06 1:25pm Advance Directive Response Recorded Date/ Time Advance Directives No May 2:52pm Living Will No December 24, 2021 3 :19am Power of Frame Runner No December 24, 2021 3:19am Reason for Referral Specialty Diagnoses / Procedures Referred By Contac t Referred To Contact Diagnoses Schizoaffective disorder, bipolar type (HCC) Procedures CONSULT TO PSYCHIATRY Doron Mariee MD [address] [place] [address] Referral ID Status Reason Start Date Expiration Date Visits Requested Visits Authorized [id number] Ref Not Required PCP Requested Referral 12/10/2021 12/10/2022 1 1 Specialty Diagnoses / Procedures Referred By Contac t Referred To Contact Gynecology Diagnoses Screening for cervical cancer Procedures CONSULT TO GYNECOLOGY OFFICE/OUTPATIENT [facility] 60-74 MINUTES Doron Mariee MD [address] [place] [address] Referral ID Status Reason Start Date Expiration Date Visits Requested Visits Authorized [id number] Authorized PCP Requested Referral Auto-Generate d Referral 12/10/2021 12/10/2022 1 1 Summary Purpose Additional Source Comments Source Comments (unrecognize d section and content) In the event this informatio n is protected by the Federal Confidentiality of Alcohol and Drug Abuse Patient Records regulations: The Federal rules restrict any use of the information to criminally investigate or prosecute any alcohol or drug abuse patient.[facility] Center[facility] the event this information is protected by the Federal Confidentiality of Alcohol and Drug Abuse Patient Records regulations: The Federal rules restrict any use of the information to criminally investigate or prosecute any alcohol or drug abuse patient.[facility] CenterIn the event this information is protected by the Federal Confidentiality of Alcohol and Drug Abuse Patient Records regulations: The Federal rules restrict any use of the information to criminally investigate or prosecute any alcohol or drug abuse patient.[facility] CenterIn the event this information is protected by the Federal Confidentiality of Alcohol and Drug Abuse Patient Records regulations: The Federal rules restrict any use of the information to criminally investigate or prosecute any alcohol or drug abuse patient.[facility] CenterIn the event this information is protected by the Federal Confidentiality of Alcohol and Drug Abuse Patient Records regulations: The Federal rules restrict any use of the information to criminally investigate or prosecute any alcohol or drug abuse patient.[facility] CenterIn the event this information is protected by the Federal Confidentiality of Alcohol and Drug Abuse Patient Records regulations: The Federal rules restrict any use of the information to criminally investigate or prosecute any alcohol or drug abuse patient.[facility] CenterIn the event this information is protected by the Federal Confidentiality of Alcohol and Drug Abuse Patient Records regulations: The Federal rules restrict any use of the information to criminally investigate or prosecute any alcohol or drug abuse patient.[facility] CenterIn the event this information is protected by the Federal Confidentiality of Alcohol and Drug Abuse Patient Records regulations: The Federal rules restrict any use of the information to criminally investigate or prosecute any alcohol or drug abuse patient.[facility] CenterIn the event this information is protected by the Federal Confidentiality of Alcohol and Drug Abuse Patient Records regulations: The Federal rules restrict any use of the information to criminally investigate or prosecute any alcohol or drug abuse patient.[facility] CenterIn the event this information is protected by the Federal Confidentiality of Alcohol and Drug Abuse Patient Records regulations: The Federal rules restrict any use of the information to criminally investigate or prosecute any alcohol or drug abuse patient.[facility] CenterIn the event this information is protected by the Federal Confidentiality of Alcohol and Drug Abuse Patient Records regulations: The Federal rules restrict any use of the information to criminally investigate or prosecute any alcohol or drug abuse patient.[facility] CenterIn the event this information is protected by the Federal Confidentiality of Alcohol and Drug Abuse Patient Records regulations: The Federal rules restrict any use of the information to criminally investigate or prosecute any alcohol or drug abuse patient.[facility] CenterIn the event this information is protected by the Federal Confidentiality of Alcohol and Drug Abuse Patient Records regulations: The Federal rules restrict any use of the information to criminally investigate or prosecute any alcohol or drug abuse patient.[facility] CenterIn the event this information is protected by the Federal Confidentiality of Alcohol and Drug Abuse Patient Records regulations: The Federal rules restrict any use of the information to criminally investigate or prosecute any alcohol or drug abuse patient.[facility] CenterIn the event this information is protected by the Federal Confidentiality of Alcohol and Drug Abuse Patient Records regulations: The Federal rules restrict any use of the information to criminally investigate or prosecute any alcohol or drug abuse patient.[facility] CenterIn the event this information is protected by the Federal Confidentiality of Alcohol and Drug Abuse Patient Records regulations: The Federal rules restrict any use of the information to criminally investigate or prosecute any alcohol or drug abuse patient.[facility] CenterIn the event this information is protected by the Federal Confidentiality of Alcohol and Drug Abuse Patient Records regulations: The Federal rules restrict any use of the information to criminally investigate or prosecute any alcohol or drug abuse patient.[facility] CenterIn the event this information is protected by the Federal Confidentiality of Alcohol and Drug Abuse Patient Records regulations: The Federal rules restrict any use of the information to criminally investigate or prosecute any alcohol or drug abuse patient.[facility] Reason for Visit (unrecogniz ed section and content) Reason Comments outreach Reason Comments Returning Patient's Call Reason Comments Discussion Reason Comments Weight Loss Reason Comments Results Reason Comments Radiology US Reason Comments weight concerns Specialty Diagnoses / Procedures Referred By Jossie t Referred To Contact INTERNAL MEDICINE Diagnoses follow up Procedures established patient services Self [address] [place] [address] [address] [place] [address] Referral ID Status Reason Start Date Expiration Date V isits Requested Visits Authorized [id number] Closed OON/Self Pay Override 09/01/2023 07/19/2024 1 1 Reason Comments consult Reason Comments Bipolar Disorder Specialty Diagnoses / Procedures Referred By Jossie t Referred To Contact ADULT PSYCHOLOGY Diagnoses office visit Procedures OFFICE/OUTPATIENT ESTABLISHED MOD MDM 30 MIN office visit Self [facility] [address] [place] [address] Referral ID Status Reason Start Date Expiration Date V isits Requested Visits Authorized [id number] Closed Financial Clearance Required - 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 Payor Patient Cleared - INN Insurance Found 09/02/2023 12/01/2023 1 1 Reason Comments vaginal bleeding Reason Comments burning with urination Burning with urin ation x 3 days Reason Comments work excuse Reason Comments Hives Reason Comments Vaginal Bleeding - Care Teams (unrecognized sec tion and content) 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 Start Date End Date Doron Mariee MD [address] [place] [address] PCP - General Internal Medicine 10/11/21 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 Start Date End Date Doron Mariee MD [address] [place] [address] PCP - General Internal Medicine 10/11/21 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 Start Date End Date Doron Mariee MD [facility] [place] [address] PCP - General Internal Medicine 10/11/21 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 Start Date End Date Doron Mariee MD [address] [place] [address] PCP - General Internal Medicine 10/11/21 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 Start Date End Date Doron Mariee MD [address] [place] [address] PCP - General Internal Medicine 10/11/21 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 Start Date End Date Doron Mariee MD [address] [place] [address] PCP - General Internal Medicine 10/11/21 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 Start Date End Date Doron Mariee MD [address] [place] [address] PCP - General Internal Medicine 10/11/21 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 Start Date End Date Doron Mariee MD [address] [place] [address] PCP - General Internal Medicine 10/11/21 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 Start Date End Date Doron Mariee MD [address] [place] [address] PCP - General Internal Medicine 10/11/21 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 Start Date End Date Doron Mariee MD [address] [place] [address] PCP - General Internal Medicine 10/11/21 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 Start Date End Date Doron Mariee MD [address] [place] [address] PCP - General Internal Medicine 10/11/21 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 Start Date End Date Doron Mariee MD [address] [place] [address] PCP - General Internal Medicine 10/11/21 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 Start Date End Date Doron Mariee MD [address] [place] [address] PCP - General Internal Medicine 10/11/21 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 Start Date End Date Doron Mariee MD [address] [place] [address] PCP - General Internal Medicine 10/11/21 Goals (unrecognized section and content) Goals may be documented in a n alternate sectionGoals may be documented in an alternate section INFORMATION SOURCE (unrecogn ized section and content) DATE CREATED AUTHOR 11/28/2023 [facility] DATE CREATED AUTHOR AUTHOR'S ORGANIZ ATION 05/04/2025 [facility] DATE CREATED AUTHOR AUTHOR'S ORGANIZ ATION 05/30/2025 [facility] Scheduled Active and Recently Administ ered Medications (unrecognized section and content) Medication Order 04/29/2025 04/30/2025 05/01/2025 dexAMETHasone (PF) (Decadron) injection 10 mg (COMPLETED) 10 mg, IntraMUSCular, Once, On 05/01/25 at 0555, For 1 dose 0601 (Given - Provid er: Hali Carey RN) famotidine (Pepcid) tablet 20 mg (COMPLETED) 20 mg, Oral, Once, On Thu05/01/25 at 0555, For 1 dose 0602 (Given - Provid er: Hali Carey RN) FOR RECORDS PERTAINING TO PATIENTS WHO ARE OR HAVE BEEN ENROLLED IN A CHEMICAL DEPENDENCY/SUBSTANCEABUSE PROGRAM, SOME INFORMATION MAY BE OMITTED. This clinical summary was aggregated from multiple sources. Caution should be exercised in using it in the provision of clinical care. This summary normalizes information from multiple sources, and as a consequence, information in this document may materially change the coding, format and clinical context of patient data. In addition, data may be omitted in some cases. CLINICAL DECISIONS SHOULD BE BASED ON THE PRIMARY CLINICAL RECORDS. [employer] [facility]. provides no warranty or guarantee of the accuracy or completeness of information in this document.
== END | disposition home or self-care (01) ==
LOC: LABSPEC 16:32
PROVIDERS: PCP Internal Medicine; Referring Provider Advanced Practice Midwife; Visit Provider Advanced Practice Midwife
DX: F12.90 Cannabis use, unspecified, uncomplicated (principal)
CPT/HCPCS: 80307